=== PATIENT | male | born 1950 | race Caucasian/White ===

== ENCOUNTER 2020-09-12 08:21 | Outpatient (REF) | payer MEDICARE, SELFPAY ==
[2020-09-12 11:35] LABS: Alanine Aminotransferase 32 U/L (0-40); Albumin Level 4.7 g/dL (3.5-5.0); Alkaline Phosphatase 62 U/L (39-117); Anion Gap 14 (12-20); Aspartate Amino Transferase 20 U/L (5-37); Bilirubin Total 0.6 mg/dL (0.0-1.0); Blood Urea Nitrogen 17 mg/dL (9-16); Calcium 9.7 mg/dL (8.4-10.2); Carbon Dioxide 26 mmol/L (22-29); Chloride 103 mmol/L (96-108); Cholesterol 119 mg/dL; Estimated Glomerular Filt Rate > 60; Glucose Fasting 153 mg/dL (60-99); HDL Cholesterol 40 mg/dL; LDL Cholesterol Calculated 58 mg/dl; Potassium 4.8 mmol/L (3.3-5.1); Sodium 138 mmol/L (135-145); Total Protein 7.1 g/dL (6.5-8.0); Triglycerides 105 mg/dL
[2020-09-12 11:48] LABS: Creatinine Urine 116.07 mg/dL; Microalbum/Creatinine Ratio Ur 7.7 ug/mg cr
[2020-09-12 11:56] LABS: PSA,Total (Free>4and<10) 0.94 ng/mL (0.00-4.00); Vitamin D 25-OH Total 28.9 ng/mL (>30)
== END 2020-09-12 08:22 | disposition home or self-care (01) ==
LOC: HO.HMGCLDS 08:21
PROVIDERS: PCP Internal Medicine; Visit Provider Internal Medicine
DX: E11.65 Type 2 diabetes mellitus with hyperglycemia (principal); I10 Essential (primary) hypertension; E78.5 Hyperlipidemia, unspecified; Z12.5 Encounter for screening for malignant neoplasm of prostate
CPT/HCPCS: 36415; 80053; 80061; 82043; 82306; 84153

== ENCOUNTER 2021-01-25 07:51 | Outpatient (REF) | payer MEDICARE, SELFPAY ==
[2021-01-25 12:09] LABS: Alanine Aminotransferase 32 U/L (0-40); Anion Gap 13 (12-20); Aspartate Amino Transferase 24 U/L (5-37); Blood Urea Nitrogen 13 mg/dL (9-16); Calcium 9.5 mg/dL (8.4-10.2); Carbon Dioxide 24 mmol/L (22-29); Chloride 103 mmol/L (96-108); Cholesterol 107 mg/dL; Estimated Glomerular Filt Rate > 60; Glucose Fasting 101 mg/dL (60-99); HDL Cholesterol 41 mg/dL; LDL Cholesterol Calculated 49 mg/dl; Potassium 4.8 mmol/L (3.3-5.1); Sodium 135 mmol/L (135-145); Triglycerides 85 mg/dL
[2021-01-25 13:06] LABS: Estimated Average Glucose 134 mg/dL; Hemoglobin A1c % 6.3 %
== END 2021-01-25 07:52 | disposition home or self-care (01) ==
LOC: HO.HMGCLDS 07:51
PROVIDERS: PCP Internal Medicine; Visit Provider Internal Medicine
DX: E11.9 Type 2 diabetes mellitus without complications (principal); E78.5 Hyperlipidemia, unspecified; I10 Essential (primary) hypertension
CPT/HCPCS: 36415; 80048; 80061; 83036; 84450; 84460

== ENCOUNTER 2021-05-26 07:57 | Outpatient (REF) | payer MEDICARE, SELFPAY ==
[2021-05-26 11:46] LABS: Estimated Average Glucose 137 mg/dL; Hemoglobin A1c % 6.4 %
[2021-05-26 11:57] LABS: Alanine Aminotransferase 29 U/L (0-40); Anion Gap 14 (12-20); Aspartate Amino Transferase 22 U/L (5-37); Blood Urea Nitrogen 16 mg/dL (9-16); Calcium 9.6 mg/dL (8.4-10.2); Carbon Dioxide 25 mmol/L (22-29); Chloride 105 mmol/L (96-108); Cholesterol 114 mg/dL; Estimated Glomerular Filt Rate > 60; Glucose Fasting 156 mg/dL (60-99); HDL Cholesterol 40 mg/dL; LDL Cholesterol Calculated 59 mg/dl; Potassium 4.5 mmol/L (3.3-5.1); Sodium 139 mmol/L (135-145); Triglycerides 75 mg/dL
[2021-05-26 12:06] LABS: Vitamin D 25-OH Total 64.5 ng/mL (>30)
== END 2021-05-26 07:58 | disposition home or self-care (01) ==
LOC: HO.HMGCLDS 07:57
PROVIDERS: PCP Internal Medicine; Visit Provider Internal Medicine
DX: E11.9 Type 2 diabetes mellitus without complications (principal); E78.5 Hyperlipidemia, unspecified; I10 Essential (primary) hypertension
CPT/HCPCS: 36415; 80048; 80061; 82306; 83036; 84450; 84460

== ENCOUNTER 2021-12-01 08:01 | Outpatient (REF) | payer MEDICARE, SELFPAY ==
[2021-12-01 11:10] LABS: MANUAL DIFF FLAG NO
[2021-12-01 11:26] LABS: Basophils Absolute Auto 0.1 X10*3/uL (0.0-0.2); Basophils Percent Auto 1.4 % (0-2); Eosinophils Absolute Auto 0.1 X10*3/uL (0.0-0.4); Eosinophils Percent Auto 1.7 % (0-4); Hematocrit 41.3 % (42.0-52.0); Hemoglobin 13.7 g/dl (14.0-18.0); Imm Gran Abs Auto 0.03 X10*3/uL (0.00-0.03); Imm Gran Pct Auto 0.6 % (0.0-0.4); Lymphocytes Absolute Auto 0.8 X10*3/uL (1.2-4.9); Lymphocytes Percent Auto 16.1 % (20-40); Mean Corpuscular HGB Conc 33.2 g/dl (31.0-36.0); Mean Corpuscular Hemoglobin 31.1 pg (27.0-33.0); Mean Corpuscular Volume 93.9 fL (80.0-98.0); Monocytes Absolute Auto 0.5 X10*3/uL (0.1-1.2); Monocytes Percent Auto 8.7 % (2-11); Neutrophils Absolute Auto 3.7 x10*3/uL (2.0-8.3); Neutrophils Percent Auto 71.5 % (45-73); Platelet Count 238 X10*3/uL (160-400); Red Cell Distribution Width 13.5 % (11.0-16.0); White Blood Count 5.2 X10*3/uL (4.8-10.8)
[2021-12-01 11:33] LABS: Estimated Average Glucose 151 mg/dL; Hemoglobin A1c % 6.9 %
[2021-12-01 11:59] LABS: Creatinine Urine 142.83 mg/dL
[2021-12-01 12:00] LABS: PSA,Total (Free>4and<10) 1.04 ng/mL (0.00-4.00)
[2021-12-01 12:02] LABS: Alanine Aminotransferase 34 U/L (0-40); Anion Gap 13 (12-20); Aspartate Amino Transferase 25 U/L (5-37); Blood Urea Nitrogen 17 mg/dL (9-16); Calcium 9.8 mg/dL (8.4-10.2); Carbon Dioxide 25 mmol/L (22-29); Chloride 106 mmol/L (96-108); Cholesterol 115 mg/dL; Estimated Glomerular Filt Rate > 60; Glucose Fasting 150 mg/dL (60-99); HDL Cholesterol 36 mg/dL; LDL Cholesterol Calculated 58 mg/dl; Potassium 4.6 mmol/L (3.3-5.1); Sodium 139 mmol/L (135-145); Triglycerides 109 mg/dL
== END 2021-12-01 08:02 | disposition home or self-care (01) ==
LOC: HO.HMGCLDS 08:01
PROVIDERS: PCP Internal Medicine; Visit Provider Internal Medicine
DX: Z12.5 Encounter for screening for malignant neoplasm of prostate (principal); E78.5 Hyperlipidemia, unspecified; I10 Essential (primary) hypertension; E11.9 Type 2 diabetes mellitus without complications
CPT/HCPCS: 36415; 80048; 80061; 82043; 83036; 84153; 84450; 84460; 85025

== ENCOUNTER 2022-06-29 07:32 | Outpatient (REF) | payer MEDICARE, SELFPAY ==
[2022-06-29 11:39] LABS: MANUAL DIFF FLAG NO
[2022-06-29 11:48] LABS: Basophils Absolute Auto 0.1 X10*3/uL (0.0-0.2); Basophils Percent Auto 1.1 % (0-2); Eosinophils Absolute Auto 0.1 X10*3/uL (0.0-0.4); Eosinophils Percent Auto 1.8 % (0-4); Hematocrit 43.1 % (42.0-52.0); Imm Gran Abs Auto 0.06 X10*3/uL (0.00-0.03); Imm Gran Pct Auto 1.1 % (0.0-0.4); Lymphocytes Percent Auto 18.2 % (20-40); Mean Corpuscular HGB Conc 32.5 g/dl (31.0-36.0); Mean Corpuscular Hemoglobin 30.5 pg (27.0-33.0); Mean Corpuscular Volume 93.9 fL (80.0-98.0); Monocytes Absolute Auto 0.6 X10*3/uL (0.1-1.2); Monocytes Percent Auto 10.3 % (2-11); Neutrophils Absolute Auto 3.8 x10*3/uL (2.0-8.3); Neutrophils Percent Auto 67.5 % (45-73); Platelet Count 242 X10*3/uL (160-400); Red Blood Count 4.59 X10*6/uL (4.60-5.80); Red Cell Distribution Width 13.6 % (11.0-16.0); White Blood Count 5.6 X10*3/uL (4.8-10.8)
[2022-06-29 12:40] LABS: Alanine Aminotransferase 35 U/L (0-40); Aspartate Amino Transferase 23 U/L (5-37); Blood Urea Nitrogen 15 mg/dL (9-16); Calcium 9.8 mg/dL (8.4-10.2); Cholesterol 123 mg/dL; Estimated Glomerular Filt Rate > 60; Glucose Fasting 149 mg/dL (60-99); HDL Cholesterol 37 mg/dL; Iron 97 mcg/dL (45-160); LDL Cholesterol Calculated 62 mg/dl; Percent Iron Saturation 32 % (15-50); Total Iron Binding Capacity 306 mcg/dL (228-428); Triglycerides 123 mg/dL; Unsaturated Iron Binding 209 ug/dL; Vitamin D 25-OH Total 59.6 ng/mL (>30)
[2022-06-29 14:27] LABS: Anion Gap 12 (12-20); Carbon Dioxide 26 mmol/L (22-29); Chloride 104 mmol/L (96-108); Sodium 137 mmol/L (135-145)
== END 2022-06-29 07:33 | disposition home or self-care (01) ==
LOC: HO.HMGCLDS 07:32
PROVIDERS: PCP Internal Medicine; Visit Provider Internal Medicine
DX: E11.9 Type 2 diabetes mellitus without complications (principal); E78.5 Hyperlipidemia, unspecified; I10 Essential (primary) hypertension; D64.9 Anemia, unspecified
CPT/HCPCS: 36415; 80048; 80061; 82306; 83540; 84450; 84460; 85025

== ENCOUNTER 2022-10-25 07:42 | Outpatient (REF) | payer BC, SELFPAY ==
[2022-10-25 12:03] LABS: Creatinine Urine 166.54 mg/dL; Microalbum/Creatinine Ratio Ur 9.6 ug/mg cr
[2022-10-25 12:06] LABS: Alanine Aminotransferase 29 U/L (0-40); Anion Gap 13 (12-20); Aspartate Amino Transferase 23 U/L (5-37); Blood Urea Nitrogen 20 mg/dL (9-16); Calcium 9.7 mg/dL (8.4-10.2); Carbon Dioxide 24 mmol/L (22-29); Chloride 108 mmol/L (96-108); Cholesterol 106 mg/dL; Estimated Glomerular Filt Rate > 60; Glucose Fasting 131 mg/dL (60-99); HDL Cholesterol 37 mg/dL; LDL Cholesterol Calculated 55 mg/dl; Potassium 4.5 mmol/L (3.3-5.1); Sodium 140 mmol/L (135-145); Triglycerides 70 mg/dL
[2022-10-25 12:09] LABS: PSA,Total (Free>4and<10) 1.13 ng/mL (0.00-4.00); Vitamin D 25-OH Total 71.2 ng/mL (>30)
== END 2022-10-25 07:43 | disposition home or self-care (01) ==
LOC: HO.HMGCLDS 07:42
PROVIDERS: PCP Internal Medicine; Visit Provider Internal Medicine
DX: Z12.5 Encounter for screening for malignant neoplasm of prostate (principal); E78.5 Hyperlipidemia, unspecified; I10 Essential (primary) hypertension; E11.9 Type 2 diabetes mellitus without complications
CPT/HCPCS: 36415; 80048; 80061; 82043; 82306; 84153; 84450; 84460

== ENCOUNTER 2022-11-02 11:39 | Outpatient (AMB) | payer BC, SELFPAY ==
[2022-11-02 11:45] VITALS: BP 130/68; PULSE 87; O2SAT 99; BMI 29.8
--- NOTE | 2022-11-02 11:45 | MHC.PC.OV ---
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 Allergies No Known Allergies Allergy (Verified 04/29/23 13:21) Medication List - Last Reconciled 11/02/22 by Jesi Rao MD antiarthritic combination no.2 (glucosamine-chondroitin) mg PO atorvastatin 40 mg PO DAILY calcium carbonate-vitamin D3 600 mg-5 mcg (200 unit) (Calcium 600 + D(3)) caps PO cholecalciferol (vitamin D3) 125 mcg PO .every other day coenzyme [id number] 100-100 mg-unit caps PO flu vacc [id number](65yr up)-PF mL IM glimepiride (Amaryl) 4 mg PO QAM lancets (Acti-Simon Lancets) Check blood sugar once daily before meal lisinopril 10 mg PO DAILY metformin 1,000 mg PO BID multivitamin 1 tab PO DAILY omega-3 acid ethyl esters 1 cap PO DAILY OneTouch Ultra Test (blood sugar diagnostic) Test blood sugar once a day NS pioglitazone 30 mg PO DAILY varicella-zoster [id number] (PF) 50 mcg/0.5 mL IM Tobacco use date assessed: 11/02/22 Fall risk assessment: No Falls in past year Last assessed Fall Risk: 11/02/22 HPI 4 month ffup dm ,lipids, htn HPI Details 73-year-old male here today for his follow-up. He has diabetes mellitus, hyperlipidemia hypertension, compliant with taking his medications and diet, but admits to not getting much exercise lately. Recent fasting labs showed hemoglobin A1c higher than last check at 7.1%, and HDL cholesterol low but LDL cholesterol at goal. Blood pressure stable and controlled with present treatment. He sees Dr. Alcocer yearly for his diabetes retinopathy exam and gets yearly diabetes foot exam with Dr. Cast [facility] Medical History History of kidney stones Type 2 diabetes mellitus without complication, with no history of insulin use Essential hypertension Dyslipidemia Surgical History H/O colonoscopy Family History Father Aneurysm Mother No problems noted. Social History Housing: Condominium Alcohol intake: never Patient Tobacco Use Status: Never used Tobacco e-Cigarette/Vaping Use: Never Used Current occupational status: retired Cognitive needs: No Hearing needs: No Vision needs: Yes Questionnaire PHQ-9 Over the last 2 weeks, how often have you been bothered by any of the following problems? 1. Little interest or pleasure in doing things: not at all 2. Feeling down, depressed, or hopeless: not at all 3. Trouble falling or staying asleep, or sleeping too much: not at all 4. Feeling tired or having little energy: not at all 5. Poor appetite or overeating: not at all 6. Feeling bad about yourself - or that you are a failure or have let yourself or your family down: not at all 7. Trouble concentrating on things, such as reading the newspaper or watching television: not at all 8. Moving or speaking so slowly that other people could have noticed. Or the opposite - being so fidgety or restless that you have been moving around a lot more than usual: not at all 9. Thoughts that you would be better off or of hurting yourself in some way: not at all Total score: 0 Depression Screening Interpretation: Negative [id number] - PHQ-9 Billing: Yes Source: Developed by Drs. Bryan Vieyra, Sandra Joy, Jorge Llamas and colleagues, with an educational calin from [employer]. Thrive Questionnaire Date Thrive assessed: 07/04/22 AUDIT C Alcohol Use Questionnaire (AUDIT-C) 1. How often do you have a drink containing alcohol?: Never 2. How many drinks containing alcohol do you have on a typical day when you are drinking?: 1 or 2 3. How often do you have six or more drinks on one occasion?: Never Total Score: 0 SNEHA-7 AMB Questionnaire SNEHA-7 Date SNEHA - 7 assessed: 04/07/23 Feeling nervous, anxious, or on edge: 0 = Not at all Not being able to stop or control worryin = Not at all Worrying too much about different things: 0 = Not at all Trouble relaxin = Not at all Being so restless that it is hard to sit still: 0 = Not at all Becoming easily annoyed or irritable: 0 = Not at all Feeling afraid as if something awful might happen: 0 = Not at all Total SNEHA-7 score (0-4 normal; 5-9 mild; 10-14 moderate; 15-21 severe): 0 Source: Developed by Drs. Bryan Vieyra, Sandra Joy, Jorge Llamas and colleagues, with an educational calin from [employer]. SNEHA-7 Assessment Billing SNEHA-7 Assessment Tool: SNEHA-7 Assessment [id number] Review of Systems Const Denies body aches, Denies fatigue, Denies fever(s), Denies headache(s) and Denies weakness Eyes Details: Sees Dr. Alcocer ENT Reports Normal hearing present and Denies headache(s) Card Denies chest pain, Denies lightheadedness, Denies palpitations and Denies dyspnea Resp Denies chest congestion, Denies cough and Denies dyspnea GI Denies abdominal pain, Denies change in bowel habits and Denies heartburn Denies dysuria, Denies urinary frequency and Denies urinary urgency Musc Denies back pain, Denies myalgias, Denies arthralgias, Denies muscle weakness and Denies stiffness Skin/Breast Details: Currently gets diabetes foot exam with Dr. Cast Denies lesions and Denies rash Neuro Reports Normal hearing present, Denies headache(s), Denies Sensory deficit (Neuro) and Denies weakness Psych Reports no additional complaints Endo Denies fatigue, Denies polydipsia, Denies polyuria and Denies palpitations Johann/Lymph Reports no additional complaints Aller/Immun Reports no additional complaints Physical exam (Primary Care) Vital Signs: Last Vital Signs Pulse 87 11/02/22 11:45 BP 130/68 11/02/22 11:45 Pulse Ox 99 11/02/22 11:45 Oxygen Delivery Method Room Air 11/02/22 11:45 BMI result Body Mass Index 29.8 BMI Assessment/Plan discussion: High BMI High, discussed plan: lifestyle, weight reduction, dietary and physical activity Tobacco/Smoking Status: Tobacco use Status Tobacco use date assessed 11/02/22 11/02/22 11:46 Patient Tobacco Use Status Never used Tobacco 11/02/22 11:46 e-Cigarette/Vaping Use Never Used 11/02/22 11:46 PHQ-9: PHQ-9 Score PHQ-9: Total score 0 11/02/22 12:51 Depression Screening Interpretation: Negative Thrive Assessment: Date of Thrive Assessment Date Thrive assessed 07/04/22 11/02/22 11:46 Const General: healthy appearing, no acute distress and alert Orientation/consciousness: patient oriented x3 HENMT Head: Yes normocephalic Ears: hearing grossly normal bilaterally and external ears normal General nose exam: Normal external nose present and No nasal discharge present Face and sinus: Yes face symmetric Mouth: Normal oral and palatal mucosa present, oropharynx normal and moist mucous membranes Eyes General: appearance normal, both eyes and all related structures Neck Neck: Yes full ROM and Yes no lymphadenopathy Thyroid: Thyroid normal Resp Effort & Inspection: normal respiratory effort and able to speak in complete sentences Auscultation: clear to auscultation bilaterally Cardio Jugular venous distension: no JVD Rate: regular rate Rhythm: regular rhythm Heart sounds: S1 normal heart sound present and S2 normal heart sound present GI Inspection: Yes normal to inspection Palpation (GI): Soft to palpation Auscultation: normal bowel sounds Back/Spine/Pelvis Back: No back tenderness Skin Other: sees Dr Wells yearly General skin exam: no rashes or lesions noted Neuro General: patient oriented x3, gait normal, moves all extremities, no focal motor deficits, CN's II-XI intact bilaterally and normal sensation to monofilament Cranial nerves: Yes Normal hearing present Cognition (Neuro): normal cognition Gait exam (Neuro): Normal gait present Motor exam (neuro): 5/5 motor strength present throughout Sensory Exam: No Sensory deficit (Neuro) Extrem General: Yes normal to inspection, Yes full ROM, Yes no pedal edema and Yes normal gait Psych Appearance: grossly normal and well kempt Mental Status: mental status grossly normal Speech and movement: Normal speech and movement present Thought process: Normal thought process present Thought content: Normal thought content present Results Reviewed Results Reviewed: ENTERED: 10/25/22 OTHR GARCIA: ORDERED: Met Prof Fast, AST, ALT, Lipid Panel, PSA W/ REFLEX, Vitamin D 25-OH Test Result Flag Reference Site Sodium 140 135-145 mmol/L Potassium 4.5 3.3-5.1 mmol/L CL 108 96-108 mmol/L CO2 24 22-29 mmol/L Gap 13 12-20 BUN 20 H 9-16 mg/dL Creat 0.83 0.5-1.4 mg/dL EGFR > 60 NOTE: For -Citizen Of [place] individuals, multiply the result by 1.210. Chronic Kidney Disease: Estimated GFR < 60 mL/min/1.73m2 Severe Kidney Disease: Estimated GFR < 15 mL/min/1.73m2 FBS 131 H 60-99 mg/dL A fasting glucose of 126 mg/dl or greater on more than one occasion is considered diagnostic of diabetes. CA 9.7 8.4-10.2 mg/dL AST (GOT) 23 5-37 U/L ALT (GPT) 29 0-40 U/L Triglyceride 70 mg/dL Desirable Triglyceride: less than 150 mg/dL Borderline High Triglyceride 150-199 mg/dL High Triglyceride: 200-499 mg/dL Very High Triglyceride: greater than or equal to 5OO mg/dL Chol 106 mg/dL Desirable Cholesterol: less than 200 mg/dL Borderline High Cholesterol: 200-239 mg/dL High Cholesterol: greater than 239 mg/dL LDL Calculated 55 mg/dl Desirable LDL: less than 100 mg/dL Near Optimal/Above Optimal LDL: 110-129 mg/dL Borderline High LDL: 130-159 mg/dL High LDL: 160-189 mg/dL Very High LDL: greater than or equal to 190 mg/dL HDL 37 mg/dL Desirable HDL: greater than 40 mg/dL Note: This HDL assay may give artificially low results in patients with liver disease. PSA W/ REFLEX 1.13 0.00-4.00 ng/mL A Free PSA was not performed: The percentage of Free PSA can be used to enhance the differentiation of prostate cancer from benign prostatic disease in subjects whose PSA levels are between 4.0 and 10.0 ng/mL. For subjects whose PSA levels are below 4.0 or above 10.0 ng/mL, the risk of prostate cancer is determined on the basis of the PSA alone. Therefore the % Free PSA is recommended only for those subjects whose PSA levels are between 4.0 and 10.0 ng/mL. PSA methodology: [employer] i Chemiluminescent Microparticle Immunoassay (CMIA) Vit D 25-OH Tot 71.2 >30 ng/mL Health Based Reference Values* < 20 ng/mL Deficient 20-30 ng/mL Insufficient > 30 ng/mL Sufficient Assessment and Plan Assessment & Plan (1) Type 2 diabetes mellitus without complication, with no history of insulin use: Code(s): E11.9 - Type 2 diabetes mellitus without complications Plan: Recent lab results reviewed with patient, with higher hemoglobin A1c at 7.1% compared to last visit at 6.9%. Will continue on current medication, and reinforced diabetic diet and regular exercise with patient. Counseled regarding importance of yearly diabetes retinopathy screening. Patient advised to inspect feet daily, for any signs of injury, callus or infection. Compliance with diet and regular exercise again stressed. Blood pressure goal is less than 130/80, goal LDL is less than 100 and goal hemoglobin A1c is less than 7% follow-up appointment made in-6--months, after fasting labs done. (2) Essential hypertension: Code(s): I10 - Essential (primary) hypertension Plan: Blood pressure at goal of less than 130/80. Continue with current medication. Reinforced importance of following a low sodium diet, getting regular exercise, and lowering stress levels. (3) Dyslipidemia: Code(s): E78.5 - Hyperlipidemia, unspecified Plan: Reviewed recent fasting lipid profile with patient with levels at goal . Continue with atorvastatin 40 mg daily , in addition to adherence to low-cholesterol diet and regular exercise, at least 30 minutes 3 to 4 times a week. Advised patient to make healthy food choices, eat more fruits, vegetables, whole grains, wild caught fish and low-fat dairy. Limit amount of meat and fried or fatty food products, as well as processed foods and fast foods. Follow-up scheduled with repeat fasting lipid panel in 6 months. Orders: Orders Hemoglobin A1c 6 Months E11.9 - Type 2 diabetes mellitus without complications, I10 - Essential (primary) hypertension, E78.5 - Hyperlipidemia, unspecified Alanine Aminotransferase 6 Months E11.9 - Type 2 diabetes mellitus without complications, I10 - Essential (primary) hypertension, E78.5 - Hyperlipidemia, unspecified Basic Metabolic Panel Fasting 6 Months E11.9 - Type 2 diabetes mellitus without complications, I10 - Essential (primary) hypertension, E78.5 - Hyperlipidemia, unspecified Hemoglobin A1c 11/02/22 E11.9 - Type 2 diabetes mellitus without complications Lipid Panel 6 Months E11.9 - Type 2 diabetes mellitus without complications, I10 - Essential (primary) hypertension, E78.5 - Hyperlipidemia, unspecified Aspartate Amino Transferase 6 Months E11.9 - Type 2 diabetes mellitus without complications, I10 - Essential (primary) hypertension, E78.5 - Hyperlipidemia, unspecified Coding Level of Care Code Est Pt Level 4 (02127) Diagnoses Type 2 diabetes mellitus without complication, with no history of insulin use E11.9 Essential hypertension I10 Dyslipidemia E78.5 Additional Codes SNEHA-7 Assessment Billing - SNEHA-7 Assessment Tool: SNEHA-7 Assessment 08612 ([id number])
== END 2022-11-02 12:53 | disposition home or self-care (01) ==
LOC: HO.HMGC 11:39
PROVIDERS: PCP Internal Medicine; Visit Provider Internal Medicine
DX: E11.9 Type 2 diabetes mellitus without complications (principal); I10 Essential (primary) hypertension; E78.5 Hyperlipidemia, unspecified
CPT/HCPCS: 99499

== ENCOUNTER 2022-11-02 12:55 | Outpatient (REF) | payer BC, SELFPAY ==
[2022-11-02 14:22] LABS: Estimated Average Glucose 157 mg/dL; Hemoglobin A1c % 7.1 %
== END 2022-11-02 12:56 | disposition home or self-care (01) ==
LOC: HO.HMGCLDS 12:55
PROVIDERS: PCP Internal Medicine; Visit Provider Internal Medicine
DX: E11.9 Type 2 diabetes mellitus without complications (principal)
CPT/HCPCS: 36415; 83036

== ENCOUNTER 2023-04-24 08:10 | Outpatient (REF) | payer BC, SELFPAY ==
[2023-04-24 11:47] LABS: Alanine Aminotransferase 26 U/L (0-40); Anion Gap 10 (12-20); Aspartate Amino Transferase 23 U/L (5-37); Blood Urea Nitrogen 19 mg/dL (9-16); Carbon Dioxide 26 mmol/L (22-29); Chloride 106 mmol/L (96-108); Cholesterol 115 mg/dL (<200); Estimated Glomerular Filt Rate > 60; Glucose Fasting 150 mg/dL (60-99); HDL Cholesterol 41 mg/dL (>40); LDL Cholesterol Calculated 57 mg/dL (<100); Potassium 4.8 mmol/L (3.3-5.1); Sodium 137 mmol/L (135-145); Triglycerides 85 mg/dL (<150)
[2023-04-24 12:27] LABS: Estimated Average Glucose 160 mg/dL; Hemoglobin A1c % 7.2 % (<6.0)
== END 2023-04-24 08:11 | disposition home or self-care (01) ==
LOC: HO.HMGCLDS 08:10
PROVIDERS: PCP Internal Medicine; Visit Provider Internal Medicine
DX: E11.9 Type 2 diabetes mellitus without complications (principal); E78.5 Hyperlipidemia, unspecified; I10 Essential (primary) hypertension
CPT/HCPCS: 36415; 80048; 80061; 83036; 84450; 84460

== ENCOUNTER 2023-04-29 12:42 | Outpatient (AMB) | payer BC, SELFPAY ==
--- NOTE | 2023-04-29 12:45 | MHC.PC.OV ---
Vital Signs 04/29/23 12:54 Height 6 ft Weight 222 lb BMI 30.1 BP 110/60 Blood Pressure Location Rt brachial Position Sitting Pulse 84 Pulse Source Pulse Oximeter Pulse Oximetry (%) 97 Oxygen Delivery Method Room Air Intake Visit Reasons: 6 month ffup dm ,lipids, htn Intake Note: Pt is here today for his 6mo. f/u DM, lipids and HTN Allergies No Known Allergies Allergy (Verified 04/29/23 13:21) Medication List - Last Reconciled 04/29/23 by Jesi Rao MD antiarthritic combination no.2 (glucosamine-chondroitin) mg PO atorvastatin 40 mg PO DAILY calcium carbonate-vitamin D3 600 mg-5 mcg (200 unit) (Calcium 600 + D(3)) caps PO cholecalciferol (vitamin D3) 125 mcg PO .every other day coenzyme [id number] 100-100 mg-unit caps PO glimepiride (Amaryl) 4 mg PO QAM lancets (Acti-Simon Lancets) Check blood sugar once daily before meal lisinopril 10 mg PO DAILY metformin 1,000 mg PO BID multivitamin 1 tab PO DAILY omega-3 acid ethyl esters 1 cap PO DAILY OneTouch Ultra Test (blood sugar diagnostic) Test blood sugar once a day NS pioglitazone 30 mg PO DAILY varicella-zoster [id number] (PF) 50 mcg/0.5 mL IM Tobacco use date assessed: 04/29/23 Fall risk assessment: No Falls in past year Last assessed Fall Risk: 04/29/23 Dental Screening Dental Screen Date: 04/29/23 Did you have a dental visit in the last 12 months?: Yes Did you have a dental problem in the last 6 months where you did not have access to dental care?: No Was dental information given to patient?: Patient has dentist HPI 6 month ffup dm ,lipids, htn HPI Details 2-year-old male with hypertension, diabetes mellitus and anemia, here today for a follow-up. He has been taking his medications as directed, has been trying to follow recommended diet, and stays active. Has been feeling well, with no complaints at present time. [facility] Medical History History of kidney stones Type 2 diabetes mellitus without complication, with no history of insulin use Essential hypertension Dyslipidemia Surgical History H/O colonoscopy Family History Father Aneurysm Mother No problems noted. Social History Housing: Condominium Alcohol intake: never Patient Tobacco Use Status: Never used Tobacco e-Cigarette/Vaping Use: Never Used Current occupational status: retired Cognitive needs: No Hearing needs: No Vision needs: Yes Questionnaire PHQ-9 Over the last 2 weeks, how often have you been bothered by any of the following problems? 1. Little interest or pleasure in doing things: not at all 2. Feeling down, depressed, or hopeless: not at all 3. Trouble falling or staying asleep, or sleeping too much: not at all 4. Feeling tired or having little energy: not at all 5. Poor appetite or overeating: not at all 6. Feeling bad about yourself - or that you are a failure or have let yourself or your family down: not at all 7. Trouble concentrating on things, such as reading the newspaper or watching television: not at all 8. Moving or speaking so slowly that other people could have noticed. Or the opposite - being so fidgety or restless that you have been moving around a lot more than usual: not at all 9. Thoughts that you would be better off or of hurting yourself in some way: not at all Total score: 0 [id number] - PHQ-9 Billing: Yes Source: Developed by Drs. Bryan Vieyra, Sandra Joy, Jorge Llamas and colleagues, with an educational calin from [employer]. Thrive Questionnaire Date Thrive assessed: 04/29/23 I am a: Patient What is your living situation today?: I have a steady place to live Within the past 12 months, did the food you bought not last and you didn't have the money to get more?: Never true Within the past 12 months, did you worry whether your food would run out before you got money to buy more?: Never true Do you have trouble paying for medicines?: No Do you have trouble getting transportation to medical appointments?: No Do you have trouble paying your heating and electricity bill?: No Do you have trouble taking care of your child, family member or friend?: No Do you have trouble with day-to-day activities such as bathing, preparing meals, shopping, managing finances, etc.?: No Are you currently unemployed and looking for a job?: No Are you interested in more education?: No AUDIT C Alcohol Use Questionnaire (AUDIT-C) 1. How often do you have a drink containing alcohol?: Never Total Score: 0 SNEHA-7 AMB Questionnaire SNEHA-7 Date SNEHA - 7 assessed: 04/29/23 Feeling nervous, anxious, or on edge: 0 = Not at all Not being able to stop or control worryin = Not at all Worrying too much about different things: 0 = Not at all Trouble relaxin = Not at all Being so restless that it is hard to sit still: 0 = Not at all Becoming easily annoyed or irritable: 0 = Not at all Feeling afraid as if something awful might happen: 0 = Not at all Total SNEHA-7 score (0-4 normal; 5-9 mild; 10-14 moderate; 15-21 severe): 0 Source: Developed by Drs. Bryan Vieyra, Sandra Joy, Jorge Llamas and colleagues, with an educational calin from [employer]. SNEHA-7 Assessment Billing SNEHA-7 Assessment Tool: SNEHA-7 Assessment 00320 Review of Systems Const Denies body aches, Denies fatigue, Denies fever(s), Denies headache(s) and Denies weakness Eyes Details: Sees Dr. Alcocer ENT Reports Normal hearing present and Denies headache(s) Card Denies chest pain, Denies lightheadedness, Denies palpitations and Denies dyspnea Resp Denies chest congestion, Denies cough and Denies dyspnea GI Denies abdominal pain, Denies change in bowel habits and Denies heartburn Denies dysuria, Denies urinary frequency and Denies urinary urgency Musc Denies back pain, Denies myalgias, Denies arthralgias, Denies muscle weakness and Denies stiffness Skin/Breast Details: Currently gets diabetes foot exam with Dr. Cast Denies lesions and Denies rash Neuro Reports Normal hearing present, Denies headache(s), Denies Sensory deficit (Neuro) and Denies weakness Psych Reports no additional complaints Endo Denies fatigue, Denies polydipsia, Denies polyuria and Denies palpitations Johann/Lymph Reports no additional complaints Aller/Immun Reports no additional complaints Physical exam (Primary Care) Vital Signs: Last Vital Signs Pulse 84 04/29/23 12:54 BP 110/60 04/29/23 12:54 Pulse Ox 97 04/29/23 12:54 Oxygen Delivery Method Room Air 04/29/23 12:54 BMI result Body Mass Index 30.1 BMI Assessment/Plan discussion: High BMI High, discussed plan: lifestyle, weight reduction, dietary and physical activity Tobacco/Smoking Status: Tobacco use Status Tobacco use date assessed 04/29/23 04/29/23 12:56 Patient Tobacco Use Status Never used Tobacco 04/29/23 12:45 e-Cigarette/Vaping Use Never Used 04/29/23 12:45 PHQ-9: PHQ-9 Score PHQ-9: Total score 0 04/29/23 13:20 Thrive Assessment: Date of Thrive Assessment Date Thrive assessed 04/29/23 04/29/23 13:11 Const General: healthy appearing, no acute distress and alert Orientation/consciousness: patient oriented x3 HENMT Head: Yes normocephalic Ears: hearing grossly normal bilaterally and external ears normal General nose exam: Normal external nose present and No nasal discharge present Face and sinus: Yes face symmetric Mouth: Normal oral and palatal mucosa present, oropharynx normal and moist mucous membranes Eyes General: appearance normal, both eyes and all related structures Neck Neck: Yes full ROM and Yes no lymphadenopathy Thyroid: Thyroid normal Carotids: normal carotid upstroke Resp Effort & Inspection: normal respiratory effort and able to speak in complete sentences Auscultation: clear to auscultation bilaterally Cardio Jugular venous distension: no JVD Rate: regular rate Rhythm: regular rhythm Heart sounds: S1 normal heart sound present and S2 normal heart sound present GI Inspection: Yes normal to inspection Palpation (GI): Soft to palpation Auscultation: normal bowel sounds Back/Spine/Pelvis Back: No back tenderness Skin Other: sees Dr Wells yearly General skin exam: no rashes or lesions noted Neuro General: patient oriented x3, gait normal, moves all extremities, no focal motor deficits, CN's II-XI intact bilaterally and normal sensation to monofilament Cranial nerves: Yes Normal hearing present Cognition (Neuro): normal cognition Gait exam (Neuro): Normal gait present Motor exam (neuro): 5/5 motor strength present throughout Sensory Exam: No Sensory deficit (Neuro) Extrem General: Yes normal to inspection, Yes full ROM, Yes no pedal edema and Yes normal gait Psych Appearance: grossly normal and well kempt Mental Status: mental status grossly normal Speech and movement: Normal speech and movement present Thought process: Normal thought process present Thought content: Normal thought content present Results Reviewed Results Reviewed: ENTERED: 04/24/[address]: ORDERED: Met Prof Fast, AST, ALT, Lipid Panel Test Result Flag Reference Site Sodium 137 135-145 mmol/L Potassium 4.8 3.3-5.1 mmol/L CL 106 96-108 mmol/L CO2 26 22-29 mmol/L Gap 10 L 12-20 BUN 19 H 9-16 mg/dL Creat 0.80 0.5-1.4 mg/dL EGFR > 60 NOTE: For -Bulgar[place] individuals, multiply the result by 1.210. Chronic Kidney Disease: Estimated GFR < 60 mL/min/1.73m2 Severe Kidney Disease: Estimated GFR < 15 mL/min/1.73m2 FBS 150 H 60-99 mg/dL A fasting glucose of 126 mg/dl or greater on more than one occasion is considered diagnostic of diabetes. CA 10.0 8.4-10.2 mg/dL AST (GOT) 23 5-37 U/L ALT (GPT) 26 0-40 U/L Triglyceride 85 <150 mg/dL Desirable Triglyceride: less than 150 mg/dL Borderline High Triglyceride 150-199 mg/dL High Triglyceride: 200-499 mg/dL Very High Triglyceride: greater than or equal to 5OO mg/dL Cholesterol 115 <200 mg/dL Desirable Cholesterol: less than 200 mg/dL Borderline High Cholesterol: 200-239 mg/dL High Cholesterol: greater than 239 mg/dL LDL Calculated 57 <100 mg/dL Desirable LDL: less than 100 mg/dL Near Optimal/Above Optimal LDL: 110-129 mg/dL Borderline High LDL: 130-159 mg/dL High LDL: 160-189 mg/dL Very High LDL: greater than or equal to 190 mg/dL HDL 41 >40 mg/dL Desirable HDL: greater than 40 mg/dL Note: This HDL assay may give artificially low results in patients with liver disease. Laboratory Tests 12/01/21 11/02/22 04/24/23 08:09 13:03 08:16 Estimat Average Glucose 160 Hemoglobin A1c % 7.1 7.2 H Urine Creatinine 142.83 Urine Microalbumin 10.0 Microalb/Creat Ratio 7.0 Assessment and Plan Assessment & Plan (1) Type 2 diabetes mellitus without complication, with no history of insulin use: Code(s): E11.9 - Type 2 diabetes mellitus without complications Plan: Hemoglobin A1c today is at 7.2%. Stressed importance of following low carb diet and getting regular exercise. Will continue on metformin 1000 mg 1 tablet twice a day, hydrocortisone 30 mg daily and glimepiride 4 mg daily in a.m. with breakfast. Reminded to get his diabetes eye exam yearly to check for retinopathy and see his foot doctor on a regular basis every year. He was also advised to get his yearly flu shot and COVID vaccine booster (2) Essential hypertension: Code(s): I10 - Essential (primary) hypertension Plan: Blood pressure at goal of less than 130/80. Continue with current medication. Reinforced importance of following a low sodium diet, getting regular exercise, and lowering stress levels. (3) Dyslipidemia: Code(s): E78.5 - Hyperlipidemia, unspecified Plan: Reviewed recent fasting lipid profile with patient with levels within normal limits . Continue with atorvastatin 40 mg daily , in addition to adherence to low-cholesterol diet and regular exercise, at least 30 minutes 3 to 4 times a week. Advised patient to make healthy food choices, eat more fruits, vegetables, whole grains, wild caught fish and low-fat dairy. Limit amount of meat and fried or fatty food products, as well as processed foods and fast foods. Follow-up scheduled with repeat fasting lipid panel in 6 months. Orders: Orders Hemoglobin A1c 10/21/23 E11.9 - Type 2 diabetes mellitus without complications, E78.5 - Hyperlipidemia, unspecified, I10 - Essential (primary) hypertension Basic Metabolic Panel Fasting 10/21/23 E11.9 - Type 2 diabetes mellitus without complications, E78.5 - Hyperlipidemia, unspecified, I10 - Essential (primary) hypertension Microalbumin, Random (w Creat) 10/21/23 E11.9 - Type 2 diabetes mellitus without complications, E78.5 - Hyperlipidemia, unspecified, I10 - Essential (primary) hypertension Alanine Aminotransferase 10/21/23 E11.9 - Type 2 diabetes mellitus without complications, E78.5 - Hyperlipidemia, unspecified, I10 - Essential (primary) hypertension Aspartate Amino Transferase 10/21/23 E11.9 - Type 2 diabetes mellitus without complications, E78.5 - Hyperlipidemia, unspecified, I10 - Essential (primary) hypertension Lipid Panel 10/21/23 E11.9 - Type 2 diabetes mellitus without complications, E78.5 - Hyperlipidemia, unspecified, I10 - Essential (primary) hypertension Vitamin D 25-OH Total 10/21/23 E11.9 - Type 2 diabetes mellitus without complications, E78.5 - Hyperlipidemia, unspecified, I10 - Essential (primary) hypertension Coding Level of Care Code Est Pt Level 4 (30667) Diagnoses Type 2 diabetes mellitus without complication, with no history of insulin use E11.9 Essential hypertension I10 Dyslipidemia E78.5 Additional Codes SNEHA-7 Assessment Billing - SNEHA-7 Assessment Tool: SNEHA-7 Assessment 08246 ([id number])
[2023-04-29 12:54] VITALS: BP 110/60; PULSE 84; O2SAT 97; BMI 30.1
== END 2023-04-29 13:30 | disposition home or self-care (01) ==
PROVIDERS: Visit Provider Internal Medicine
DX: E11.9 Type 2 diabetes mellitus without complications (principal); I10 Essential (primary) hypertension; E78.5 Hyperlipidemia, unspecified
CPT/HCPCS: 99214

== ENCOUNTER 2023-12-09 07:35 | Outpatient (REF) | payer BC, SELFPAY ==
[2023-12-09 10:40] LABS: Estimated Average Glucose 171 mg/dL; Hemoglobin A1c % 7.6 % (<6.0)
[2023-12-09 11:00] LABS: Alanine Aminotransferase 30 U/L (0-40); Anion Gap 18 (12-20); Aspartate Amino Transferase 25 U/L (5-37); Blood Urea Nitrogen 18 mg/dL (9-16); Carbon Dioxide 22 mmol/L (22-29); Chloride 104 mmol/L (96-108); Cholesterol 121 mg/dL (<200); Estimated Glomerular Filt Rate > 60; Glucose Fasting 188 mg/dL (60-99); HDL Cholesterol 37 mg/dL (>40); LDL Cholesterol Calculated 52 mg/dL (<100); Potassium 4.9 mmol/L (3.3-5.1); Sodium 139 mmol/L (135-145); Triglycerides 161 mg/dL (<150)
[2023-12-09 11:08] LABS: Creatinine Urine 76.65 mg/dL; Microalbum/Creatinine Ratio Ur 7.8 ug/mg cr (<30)
[2023-12-09 11:18] LABS: Vitamin D 25-OH Total 67.2 ng/mL (>30)
== END 2023-12-09 07:36 | disposition home or self-care (01) ==
LOC: HO.HMGCLDS 07:35
PROVIDERS: PCP Internal Medicine; Visit Provider Internal Medicine
DX: E11.9 Type 2 diabetes mellitus without complications (principal); I10 Essential (primary) hypertension; E78.5 Hyperlipidemia, unspecified
CPT/HCPCS: 36415; 80048; 80061; 82043; 82306; 82570; 83036; 84450; 84460

== ENCOUNTER 2023-12-13 08:13 | Outpatient (AMB) | payer BC, SELFPAY ==
--- NOTE | 2023-12-13 08:09 | MHC.PC.OV ---
Intake Visit Reasons: f/u labs Intake Note: Pt is here is having a TH visit to f/u labs Allergies No Known Allergies Allergy (Verified 12/13/23 08:18) Medication List - Last Reconciled 12/13/23 by Jesi Rao MD antiarthritic combination no.2 (glucosamine-chondroitin) mg PO atorvastatin 40 mg PO DAILY calcium carbonate-vitamin D3 600 mg-5 mcg (200 unit) (Calcium 600 + D(3)) caps PO cholecalciferol (vitamin D3) 125 mcg PO .every other day coenzyme [id number] E 100-100 mg-unit caps PO glimepiride 4 mg PO QAM lancets (Acti-Simon Lancets) Check blood sugar once daily before meal lisinopril 10 mg PO DAILY metformin 1,000 mg PO BID multivitamin 1 tab PO DAILY omega-3 acid ethyl esters 1 cap PO DAILY OneTouch Ultra Test (blood sugar diagnostic) Test blood sugar once a day NS pioglitazone 30 mg PO DAILY Tobacco use date assessed: 12/13/23 Fall risk assessment: No Falls in past year Last assessed Fall Risk: 12/13/23 Dental Screening Dental Screen Date: 12/13/23 Did you have a dental visit in the last 12 months?: Yes Did you have a dental problem in the last 6 months where you did not have access to dental care?: No Was dental information given to patient?: Patient has dentist HPI f/u labs HPI Details Here today for follow-up on his diabetes mellitus, and hyperlipidemia. Currently taking pioglitazone 30 mg daily, metformin a 1000 mg twice a day and glimepiride 4 mg in the morning. He has been compliant with taking his medications but admits to not being fully compliant with diet and has not been getting much exercise over the last 3 months. His recent fasting labs showed a hemoglobin A1c at 7.6% but lipids are within normal limits. [facility] Medical History History of kidney stones Type 2 diabetes mellitus without complication, with no history of insulin use Essential hypertension Dyslipidemia Surgical History H/O colonoscopy Family History Father Aneurysm Mother No problems noted. Social History Housing: Condominium Alcohol intake: never Patient Tobacco Use Status: Never used Tobacco e-Cigarette/Vaping Use: Never Used Current occupational status: retired Cognitive needs: No Hearing needs: No Vision needs: Yes Questionnaire PHQ-9 Over the last 2 weeks, how often have you been bothered by any of the following problems? 1. Little interest or pleasure in doing things: not at all 2. Feeling down, depressed, or hopeless: not at all 3. Trouble falling or staying asleep, or sleeping too much: not at all 4. Feeling tired or having little energy: not at all 5. Poor appetite or overeating: not at all 6. Feeling bad about yourself - or that you are a failure or have let yourself or your family down: not at all 7. Trouble concentrating on things, such as reading the newspaper or watching television: not at all 8. Moving or speaking so slowly that other people could have noticed. Or the opposite - being so fidgety or restless that you have been moving around a lot more than usual: not at all 9. Thoughts that you would be better off or of hurting yourself in some way: not at all Total score: 0 Depression Screening Interpretation: Negative Depression Screening Done: Yes 49766 - PHQ-9 Billing: Yes Source: Developed by Drs. Bryan Vieyra, Sandra Joy, Jorge Llamas and colleagues, with an educational calin from [employer]. Thrive Questionnaire Date Thrive assessed: 12/13/23 I am a: Patient What is your living situation today?: I have a steady place to live Within the past 12 months, did the food you bought not last and you didn't have the money to get more?: Never true Within the past 12 months, did you worry whether your food would run out before you got money to buy more?: Never true Do you have trouble paying for medicines?: No Do you have trouble getting transportation to medical appointments?: No Do you have trouble paying your heating and electricity bill?: No Do you have trouble taking care of your child, family member or friend?: No Do you have trouble with day-to-day activities such as bathing, preparing meals, shopping, managing finances, etc.?: No Are you currently unemployed and looking for a job?: No Are you interested in more education?: No THRIVE Score: 0 AUDIT C Alcohol Use Questionnaire (AUDIT-C) 1. How often do you have a drink containing alcohol?: Never Total Score: 0 SNEHA-7 AMB Questionnaire SNEHA-7 Date SNEHA - 7 assessed: 12/13/23 Feeling nervous, anxious, or on edge: 0 = Not at all Not being able to stop or control worryin = Not at all Worrying too much about different things: 0 = Not at all Trouble relaxin = Not at all Being so restless that it is hard to sit still: 0 = Not at all Becoming easily annoyed or irritable: 0 = Not at all Feeling afraid as if something awful might happen: 0 = Not at all Total SNEHA-7 score (0-4 normal; 5-9 mild; 10-14 moderate; 15-21 severe): 0 Source: Developed by Drs. Bryan Vieyra, Sandra Joy, Jorge Llamas and colleagues, with an educational calin from [employer]. SNEHA-7 Assessment Billing SNEHA-7 Assessment Tool: SNEHA-7 Assessment 92049 Review of Systems Const Denies body aches, Denies fatigue, Denies fever(s), Denies headache(s) and Denies weakness Eyes Details: Sees Dr. Alcocer ENT Reports Normal hearing present and Denies headache(s) Card Denies chest pain, Denies lightheadedness, Denies palpitations and Denies dyspnea Resp Denies chest congestion, Denies cough and Denies dyspnea GI Denies abdominal pain, Denies change in bowel habits and Denies heartburn Denies dysuria, Denies urinary frequency and Denies urinary urgency Musc Denies back pain, Denies myalgias, Denies arthralgias, Denies muscle weakness and Denies stiffness Skin/Breast Details: Currently gets diabetes foot exam with Dr. Cast Denies lesions and Denies rash Neuro Reports Normal hearing present, Denies headache(s), Denies Sensory deficit (Neuro) and Denies weakness Psych Reports no additional complaints Endo Denies fatigue, Denies polydipsia, Denies polyuria and Denies palpitations Johann/Lymph Reports no additional complaints Aller/Immun Reports no additional complaints Physical exam (Primary Care) Tobacco/Smoking Status: Tobacco use Status Tobacco use date assessed 12/13/23 12/13/23 08:12 Patient Tobacco Use Status Never used Tobacco 12/13/23 08:12 e-Cigarette/Vaping Use Never Used 12/13/23 08:12 PHQ-9: PHQ-9 Score PHQ-9: Total score 0 12/13/23 08:50 Depression Screening Interpretation: Negative Thrive Assessment: Date of Thrive Assessment Date Thrive assessed 12/13/23 12/13/23 08:12 Neuro Cranial nerves: Yes Normal hearing present Sensory Exam: No Sensory deficit (Neuro) Telehealth Telehealth Telehealth Platform: [employer] Location of provider rendering services: practice address Location of patient: address on file Patient Identification confirmed using: Name, : Yes Telehealth method: video Patient verbally consented to treatment: Yes Patient verbally consented to billing insurance company: Yes Patient informed of any privacy concerns related to visit: Yes Minutes spent on Phone/Video with Pt.: 15 Results Reviewed Results Reviewed: Name: Ken Justice Age/Sex: 73/M : 1950 Unit#: [id number] Attend Dr: Jesi Rao MD Re12/09/23 Status: DEP REF Location: [facility] Disch: SPEC : [id number] DANNY: 12/09/23 STATUS: COMP REQ : [id number] RECD: 12/09/23-[address]: Jesi Rao MD COMP: 12/09/23-8 ENTERED: 12/09/23-[address]: ORDERED: Met Prof Fast, AST, ALT, Lipid Panel, Vitamin D 25-OH Test Result Flag Reference Sodium 139 135-145 mmol/L Potassium 4.9 3.3-5.1 mmol/L CL 104 96-108 mmol/L CO2 22 22-29 mmol/L Gap 18 12-20 BUN 18 H 9-16 mg/dL Creat 0.82 0.5-1.4 mg/dL EGFR > 60 NOTE: For -Swiss individuals, multiply the result by 1.210. Chronic Kidney Disease: Estimated GFR < 60 mL/min/1.73m2 Severe Kidney Disease: Estimated GFR < 15 mL/min/1.73m2 FBS 188 H 60-99 mg/dL A fasting glucose of 126 mg/dl or greater on more than one occasion is considered diagnostic of diabetes. CA 10.0 8.4-10.2 mg/dL AST (GOT) 25 5-37 U/L ALT (GPT) 30 0-40 U/L Triglyceride 161 H <150 mg/dL Desirable Triglyceride: less than 150 mg/dL Borderline High Triglyceride 150-199 mg/dL High Triglyceride: 200-499 mg/dL Very High Triglyceride: greater than or equal to 5OO mg/dL Cholesterol 121 <200 mg/dL Desirable Cholesterol: less than 200 mg/dL Borderline High Cholesterol: 200-239 mg/dL High Cholesterol: greater than 239 mg/dL LDL Calculated 52 <100 mg/dL Desirable LDL: less than 100 mg/dL Near Optimal/Above Optimal LDL: 110-129 mg/dL Borderline High LDL: 130-159 mg/dL High LDL: 160-189 mg/dL Very High LDL: greater than or equal to 190 mg/dL HDL 37 L >40 mg/dL Desirable HDL: greater than 40 mg/dL Note: This HDL assay may give artificially low results in patients with liver disease. Vit D 25-OH Tot 67.2 >30 ng/mL Health Based Reference Values* < 20 ng/mL Deficient 20-30 ng/mL Insufficient > 30 ng/mL Sufficient Laboratory Tests 11/02/22 12/09/23 12/09/23 13:03 07:41 07:45 Estimat Average Glucose 157 171 Hemoglobin A1c % 7.1 7.6 H Urine Creatinine 76.65 Urine Microalbumin 6.0 Microalb/Creat Ratio 7.8 Assessment and Plan Assessment & Plan (1) Dyslipidemia: Code(s): E78.5 - Hyperlipidemia, unspecified Plan: Will continue on current dose of atorvastatin 40 mg daily repeat fasting labs again in 3 months (2) Type 2 diabetes mellitus without complication, with no history of insulin use: Code(s): E11.9 - Type 2 diabetes mellitus without complications Plan: Reinforced importance of following recommended diet and getting regular exercise, will continue on current treatment for diabetes mellitus, up-to-date with his diabetes retinopathy exam and sees Dr. Adams for his yearly diabetes foot check. Repeat hemoglobin A1c in 3 months Orders: Orders Alanine Aminotransferase 03/29/24 E11.9 - Type 2 diabetes mellitus without complications, E78.5 - Hyperlipidemia, unspecified, I10 - Essential (primary) hypertension Basic Metabolic Panel Fasting 03/29/24 E11.9 - Type 2 diabetes mellitus without complications, E78.5 - Hyperlipidemia, unspecified, I10 - Essential (primary) hypertension Lipid Panel 03/29/24 E11.9 - Type 2 diabetes mellitus without complications, E78.5 - Hyperlipidemia, unspecified, I10 - Essential (primary) hypertension Hemoglobin A1c 03/29/24 E11.9 - Type 2 diabetes mellitus without complications, E78.5 - Hyperlipidemia, unspecified, I10 - Essential (primary) hypertension Aspartate Amino Transferase 03/29/24 E11.9 - Type 2 diabetes mellitus without complications, E78.5 - Hyperlipidemia, unspecified, I10 - Essential (primary) hypertension Coding Level of Care Code Tele Est Pt Level 4 (71812) Diagnoses Dyslipidemia E78.5 Type 2 diabetes mellitus without complication, with no history of insulin use E11.9 Additional Codes SNEHA-7 Assessment Billing - SNEHA-7 Assessment Tool: SNEHA-7 Assessment [id number] ([id number])
== END 2023-12-13 10:44 | disposition home or self-care (01) ==
LOC: HO.HMGC 08:13
PROVIDERS: PCP Internal Medicine; Visit Provider Internal Medicine
DX: E78.5 Hyperlipidemia, unspecified (principal); E11.9 Type 2 diabetes mellitus without complications
CPT/HCPCS: 99214

== ENCOUNTER 2024-04-11 07:50 | Outpatient (REF) | payer BC, SELFPAY ==
[2024-04-11 11:22] LABS: Estimated Average Glucose 186 mg/dL; Hemoglobin A1c % 8.1 % (<6.0)
[2024-04-11 11:27] LABS: Alanine Aminotransferase 33 U/L (0-40); Anion Gap 13 (12-20); Aspartate Amino Transferase 25 U/L (5-37); Blood Urea Nitrogen 18 mg/dL (9-16); Calcium 10.1 mg/dL (8.4-10.2); Carbon Dioxide 25 mmol/L (22-29); Chloride 104 mmol/L (96-108); Cholesterol 124 mg/dL (<200); Estimated Glomerular Filt Rate > 60; Glucose Fasting 162 mg/dL (60-99); HDL Cholesterol 39 mg/dL (>40); LDL Cholesterol Calculated 62 mg/dL (<100); Potassium 4.5 mmol/L (3.3-5.1); Sodium 137 mmol/L (135-145); Triglycerides 116 mg/dL (<150)
== END 2024-04-11 07:51 | disposition home or self-care (01) ==
LOC: HO.HMGCLDS 07:50
PROVIDERS: PCP Internal Medicine; Visit Provider Internal Medicine
DX: E11.9 Type 2 diabetes mellitus without complications (principal); I10 Essential (primary) hypertension; E78.5 Hyperlipidemia, unspecified
CPT/HCPCS: 36415; 80048; 80061; 83036; 84450; 84460

== ENCOUNTER 2024-04-14 11:45 | Outpatient (AMB) | payer BC, SELFPAY ==
--- NOTE | 2024-04-14 12:23 | MHC.PC.OV ---
Vital Signs 04/14/24 12:25 Height 6 ft Weight 222 lb 2 oz BMI 30.1 BP 148/62 H Blood Pressure Location Lt brachial Position Sitting Pulse 100 Pulse Source Pulse Oximeter Pulse Oximetry (%) 96 Oxygen Delivery Method Room Air Intake Visit Reasons: Follow up DM Intake Note: Pt is here today for follow up on DM Allergies No Known Allergies Allergy (Verified 04/14/24 12:35) Medication List - Last Reconciled 04/14/24 by Jesi Rao MD antiarthritic combination no.2 (glucosamine-chondroitin) mg PO atorvastatin 40 mg PO DAILY calcium carbonate-vitamin D3 600 mg-5 mcg (200 unit) (Calcium 600 + D(3)) caps PO cholecalciferol (vitamin D3) 125 mcg PO .every other day coenzyme [id number] E 100-100 mg-unit caps PO glimepiride 4 mg PO QAM lancets (Acti-Simon Lancets) Check blood sugar once daily before meal lisinopril 10 mg PO DAILY metformin 1,000 mg PO BID multivitamin 1 tab PO DAILY omega-3 acid ethyl esters 1 cap PO DAILY OneTouch Ultra Test (blood sugar diagnostic) Test blood sugar once a day NS pioglitazone 30 mg PO DAILY Tobacco use date assessed: 04/14/24 Fall risk assessment: No Falls in past year Last assessed Fall Risk: 04/14/24 Dental Screening Dental Screen Date: 04/14/24 HPI Follow up DM HPI Details 73-year-old male here today for follow-up on his diabetes mellitus, hypertension and hyperlipidemia. Has been compliant with taking his medications but admits to not really compliant with diet and no regular exercise this past few months. Systolic Blood pressure elevated on this visit, recent fasting labs showed lipid profile within normal limits, but hemoglobin A1c elevated at 8.1%. [facility] Medical History (Updated 04/14/24 @ 12:40 by Jesi Rao MD) Diabetes mellitus with hyperglycemia, without long-term current use of insulin History of kidney stones Type 2 diabetes mellitus without complication, with no history of insulin use Essential hypertension Dyslipidemia Surgical History H/O colonoscopy Family History Father Aneurysm Mother No problems noted. Social History Housing: Condominium Alcohol intake: never Patient Tobacco Use Status: Never used Tobacco e-Cigarette/Vaping Use: Never Used service: No Current occupational status: retired Cognitive needs: No Hearing needs: No Vision needs: Yes Questionnaire PHQ-9 Over the last 2 weeks, how often have you been bothered by any of the following problems? 1. Little interest or pleasure in doing things: not at all 2. Feeling down, depressed, or hopeless: not at all 3. Trouble falling or staying asleep, or sleeping too much: not at all 4. Feeling tired or having little energy: not at all 5. Poor appetite or overeating: not at all 6. Feeling bad about yourself - or that you are a failure or have let yourself or your family down: not at all 7. Trouble concentrating on things, such as reading the newspaper or watching television: not at all 8. Moving or speaking so slowly that other people could have noticed. Or the opposite - being so fidgety or restless that you have been moving around a lot more than usual: not at all 9. Thoughts that you would be better off or of hurting yourself in some way: not at all Total score: 0 Depression Screening Interpretation: Negative Depression Screening Done: Yes 50017 - PHQ-9 Billing: Yes Source: Developed by Drs. Bryan Vieyra, Sandra Joy, Jorge Llamas and colleagues, with an educational calin from [employer]. Thrive Questionnaire Date Thrive assessed: 04/14/24 I am a: Patient What is your living situation today?: I have a steady place to live Within the past 12 months, did the food you bought not last and you didn't have the money to get more?: Never true Within the past 12 months, did you worry whether your food would run out before you got money to buy more?: Never true Do you have trouble paying for medicines?: No Do you have trouble getting transportation to medical appointments?: No Do you have trouble paying your heating and electricity bill?: No Do you have trouble taking care of your child, family member or friend?: No Do you have trouble with day-to-day activities such as bathing, preparing meals, shopping, managing finances, etc.?: No Are you interested in more education?: No Please select the resources that you would like help with: None Currently or been in a relationship where the following occur: No concerns reported THRIVE Score: 0 AUDIT C Alcohol Use Questionnaire (AUDIT-C) 1. How often do you have a drink containing alcohol?: Never 3. How often do you have six or more drinks on one occasion?: Never Total Score: 0 Score Reviewed/Action Taken: Yes SNEHA-7 AMB Questionnaire SNEHA-7 Date SNEHA - 7 assessed: 04/14/24 Feeling nervous, anxious, or on edge: 0 = Not at all Not being able to stop or control worryin = Not at all Worrying too much about different things: 0 = Not at all Trouble relaxin = Not at all Being so restless that it is hard to sit still: 0 = Not at all Becoming easily annoyed or irritable: 0 = Not at all Feeling afraid as if something awful might happen: 0 = Not at all Total SNEHA-7 score (0-4 normal; 5-9 mild; 10-14 moderate; 15-21 severe): 0 Source: Developed by Drs. Bryan Vieyra, Sandra Joy, Jorge Llamas and colleagues, with an educational calin from [employer]. SNEHA-7 Assessment Billing SNEHA-7 Assessment Tool: SNEHA-7 Assessment 83772 Review of Systems Const Denies body aches, Denies fatigue, Denies fever(s), Denies headache(s) and Denies weakness Eyes Details: Sees Dr. Alcocer ENT Reports Normal hearing present and Denies headache(s) Card Denies chest pain, Denies lightheadedness, Denies palpitations and Denies dyspnea Resp Denies chest congestion, Denies cough and Denies dyspnea GI Denies abdominal pain, Denies change in bowel habits and Denies heartburn Denies dysuria, Denies urinary frequency and Denies urinary urgency Musc Denies back pain, Denies myalgias, Denies arthralgias, Denies muscle weakness and Denies stiffness Skin/Breast Details: Currently gets diabetes foot exam with Dr. Cast Denies lesions and Denies rash Neuro Reports Normal hearing present, Denies headache(s), Denies Sensory deficit (Neuro) and Denies weakness Psych Reports no additional complaints Endo Denies fatigue, Denies polydipsia, Denies polyuria and Denies palpitations Johann/Lymph Reports no additional complaints Aller/Immun Reports no additional complaints Physical exam (Primary Care) Vital Signs: Last Vital Signs Pulse 100 04/14/24 12:25 BP 148/62 H 04/14/24 12:25 Pulse Ox 96 04/14/24 12:25 Oxygen Delivery Method Room Air 04/14/24 12:25 BMI result Body Mass Index 30.1 BMI Assessment/Plan discussion: High BMI High, discussed plan: lifestyle, weight reduction, dietary and physical activity Tobacco/Smoking Status: Tobacco use Status Tobacco use date assessed 04/14/24 04/14/24 12:27 Patient Tobacco Use Status Never used Tobacco 04/14/24 12:27 e-Cigarette/Vaping Use Never Used 04/14/24 12:27 PHQ-9: PHQ-9 Score PHQ-9: Total score 0 04/14/24 12:34 Depression Screening Interpretation: Negative Thrive Assessment: Date of Thrive Assessment Date Thrive assessed 04/14/24 04/14/24 12:27 Currently or been in a relationship where the following occur: No concerns reported Const General: healthy appearing, no acute distress and alert Orientation/consciousness: patient oriented x3 HENMT Head: Yes normocephalic Ears: hearing grossly normal bilaterally and external ears normal General nose exam: Normal external nose present and No nasal discharge present Face and sinus: Yes face symmetric Mouth: Normal oral and palatal mucosa present, oropharynx normal and moist mucous membranes Eyes General: appearance normal, both eyes and all related structures Neck Neck: Yes full ROM and Yes no lymphadenopathy Thyroid: Thyroid normal Resp Effort & Inspection: normal respiratory effort and able to speak in complete sentences Auscultation: clear to auscultation bilaterally Cardio Jugular venous distension: no JVD Rate: regular rate Rhythm: regular rhythm Heart sounds: S1 normal heart sound present and S2 normal heart sound present GI Inspection: Yes normal to inspection Palpation (GI): Soft to palpation Auscultation: normal bowel sounds Back/Spine/Pelvis Back: No back tenderness Skin Other: sees Dr Wells yearly General skin exam: no rashes or lesions noted Neuro General: patient oriented x3, gait normal, moves all extremities, no focal motor deficits, CN's II-XI intact bilaterally and normal sensation to monofilament Cranial nerves: Yes Normal hearing present Cognition (Neuro): normal cognition Gait exam (Neuro): Normal gait present Motor exam (neuro): 5/5 motor strength present throughout Sensory Exam: No Sensory deficit (Neuro) Extrem General: Yes normal to inspection, Yes full ROM, Yes no pedal edema and Yes normal gait Psych Appearance: grossly normal and well kempt Mental Status: mental status grossly normal Speech and movement: Normal speech and movement present Thought process: Normal thought process present Thought content: Normal thought content present Results Reviewed Results Reviewed: Laboratory Tests 04/11/24 08:05 Estimat Average Glucose 186 Hemoglobin A1c % 8.1 H Name: Ken Justice Age/Sex: 73/M : 1950 Unit#: [id number] Attend Dr: Jesi Rao MD Re04/11/24 Status: DEP REF Location: [facility] Disch: SPEC : [id number] DANNY: 04/11/24 STATUS: COMP REQ : [id number] RECD: 04/11/[address]: Jesi Rao MD COMP: 04/11/24 ENTERED: 04/11/[address]: ORDERED: Met Prof Fast, AST, ALT, Lipid Panel Test Result Flag Reference Sodium 137 135-145 mmol/L Potassium 4.5 3.3-5.1 mmol/L CL 104 96-108 mmol/L CO2 25 22-29 mmol/L Gap 13 12-20 BUN 18 H 9-16 mg/dL Creat 0.84 0.5-1.4 mg/dL EGFR > 60 NOTE: For -[place] individuals, multiply the result by 1.210. Chronic Kidney Disease: Estimated GFR < 60 mL/min/1.73m2 Severe Kidney Disease: Estimated GFR < 15 mL/min/1.73m2 FBS 162 H 60-99 mg/dL A fasting glucose of 126 mg/dl or greater on more than one occasion is considered diagnostic of diabetes. CA 10.1 8.4-10.2 mg/dL AST (GOT) 25 5-37 U/L ALT (GPT) 33 0-40 U/L Triglyceride 116 <150 mg/dL Desirable Triglyceride: less than 150 mg/dL Borderline High Triglyceride 150-199 mg/dL High Triglyceride: 200-499 mg/dL Very High Triglyceride: greater than or equal to 5OO mg/dL Cholesterol 124 <200 mg/dL Desirable Cholesterol: less than 200 mg/dL Borderline High Cholesterol: 200-239 mg/dL High Cholesterol: greater than 239 mg/dL LDL Calculated 62 <100 mg/dL Desirable LDL: less than 100 mg/dL Near Optimal/Above Optimal LDL: 110-129 mg/dL Borderline High LDL: 130-159 mg/dL High LDL: 160-189 mg/dL Very High LDL: greater than or equal to 190 mg/dL HDL 39 L >40 mg/dL Desirable HDL: greater than 40 mg/dL Note: This HDL assay may give artificially low results in patients with liver disease. Assessment and Plan Assessment & Plan (1) Diabetes mellitus with hyperglycemia, without long-term current use of insulin: Code(s): E11.65 - Type 2 diabetes mellitus with hyperglycemia Plan: Diabetes not well controlled, will stop glimepiride, add Jardiance 10 mg 1 tablet in the morning an hour before breakfast and continued on pioglitazone 30 mg daily and metformin a 1000 mg 1 tablet twice a day. Reinforced importance of following recommended diet and getting regular exercise. (2) Dyslipidemia: Code(s): E78.5 - Hyperlipidemia, unspecified Plan: Reviewed recent fasting lipid profile with patient with levels within normal limit . Continue atorvastatin 40 mg daily and [place] 3 fatty acid supplement , in addition to adherence to low-cholesterol diet and regular exercise, at least 30 minutes 3 to 4 times a week. Advised patient to make healthy food choices, eat more fruits, vegetables, whole grains, wild caught fish and low-fat dairy. Limit amount of meat and fried or fatty food products, as well as processed foods and fast foods. Follow-up scheduled with repeat fasting lipid panel in 3 months. (3) Essential hypertension: Code(s): I10 - Essential (primary) hypertension Plan: Continue lisinopril 10 mg daily, and hopefully Jardiance added will help lower blood pressure. Reinforced importance following a low-salt diet and getting regular exercise. Orders: Orders Aspartate Amino Transferase 06/28/24 E11.65 - Type 2 diabetes mellitus with hyperglycemia, E78.5 - Hyperlipidemia, unspecified, I10 - Essential (primary) hypertension Basic Metabolic Panel Fasting 06/28/24 E11.65 - Type 2 diabetes mellitus with hyperglycemia, E78.5 - Hyperlipidemia, unspecified, I10 - Essential (primary) hypertension Hemoglobin A1c 06/28/24 E11.65 - Type 2 diabetes mellitus with hyperglycemia, E78.5 - Hyperlipidemia, unspecified, I10 - Essential (primary) hypertension Alanine Aminotransferase 06/28/24 E11.65 - Type 2 diabetes mellitus with hyperglycemia, E78.5 - Hyperlipidemia, unspecified, I10 - Essential (primary) hypertension Lipid Panel 06/28/24 E11.65 - Type 2 diabetes mellitus with hyperglycemia, E78.5 - Hyperlipidemia, unspecified, I10 - Essential (primary) hypertension Medications: New Jardiance (empagliflozin) 10 mg PO QAM 30 tabs 5RF NS .65 - Type 2 diabetes mellitus with hyperglycemia Discontinued glimepiride administer with breakfast Discontinued Reason: Doctor's Order 4 mg PO QAM 90 tabs 1RF Coding Level of Care Code Est Pt Level 4 (86685) Complex EM visit Add On G2211 Diagnoses Diabetes mellitus with hyperglycemia, without long-term current use of insulin Dyslipidemia E78.5 Essential hypertension I10 Additional Codes SNEHA-7 Assessment Billing - SNEHA-7 Assessment Tool: SNEHA-7 Assessment 67375 ([id number])
[2024-04-14 12:25] VITALS: BP 148/62; PULSE 100; O2SAT 96; BMI 30.1
== END 2024-04-14 12:52 | disposition home or self-care (01) ==
PROVIDERS: PCP Internal Medicine; Visit Provider Internal Medicine
DX: E11.65 Type 2 diabetes mellitus with hyperglycemia (principal); E78.5 Hyperlipidemia, unspecified; I10 Essential (primary) hypertension

== ENCOUNTER → 2024-04-14 11:45 | Outpatient (BNVA) | payer BC, SELFPAY | PROVIDERS: PCP Internal Medicine; Visit Provider Internal Medicine | DX: E11.65 Type 2 diabetes mellitus with hyperglycemia (principal); E78.5 Hyperlipidemia, unspecified; I10 Essential (primary) hypertension; Z79.899 Other long term (current) drug therapy | CPT/HCPCS: 96127 ==

== ENCOUNTER → 2024-04-30 10:25 | Outpatient (BNVA) | payer BC, SELFPAY | PROVIDERS: PCP Internal Medicine ==

== ENCOUNTER 2024-07-13 07:08 | Outpatient (REF) | payer BC, SELFPAY ==
--- OUTSIDE RECORDS SUMMARY | 2024-07-13 07:10 | XMS_ITS ---
[facility] Organization [facility] Address [address] [facility] [place] [address] Care Team Providers Care Pattern Setter Name Role Phone Jalen MCGUIRE, Jesi Klein Primary Care Provider Un available Phyllis Cast Unavailable [phone] Allergies No Known Allergies REASON FOR VISIT At Risk Footcare, Painful Nail(s) aggrevated by shoes and causing difficulty standing/walking., Skin problem(s) Medications Medication SIG (Take, Route, Frequency, Duration) Notes Start Date End Date Status metFORMIN HCl 1000 MG 1 tablet with a me al Orally Once a day for 30 day(s) Active Pioglitazone HCl 30 MG 1 tablet Orally O nce a day for 30 day(s) Active glyBURIDE 5 MG 1 tablet with breakf ast or the first main meal of the day Orally Once a day for 30 day(s) Active Lisinopril 10 MG 1 tablet Orally Once a day for 30 day(s) Active Atorvastatin Calcium 40 MG 1 tablet Oral ly Once a day for 30 day(s) Active Ammonium Lactate 12 % 1 application to a ffected area Externally to feet Twice a day for 30 days Active Vitamin D3 Active Glucosamine Chondroitin Adv Active Calcium Carbonate-Vitamin D3 Unknown Ciclopirox Olamine 0.77 % 1 application to affected area Externally Twice a day to effected areas on feet for 30 days 08/30/2023 Active EmI36-Bvudtuk E Acti ve Multivitamin - as directed Orally Active [place] 3-6-9 Fatty Acids - as directed Orally Active Social History Tobacco Use: Social History Observation Description Date Details (start date - stop date) Never Smoker NA - NA Tobacco Use/Smoking Question Answer Notes Are you a: nonsmoker Alcohol Screen Question Answer Notes Did you have a drink containing alcohol in the p ast year? No Points 0 Interpretation Negative Tobacco use other than smoking: Question Answer Notes Are you an other tobacco user? No Vital Signs Height 6ft in 08/30/2023 Weight 222 lbs 08/30/2023 BMI 30.11 kg/m2 08/30/2023 Encounters Encounter Location Date Provider Diagnosis [facility] [place] [address] [place] [address] 08/30/2023 Phyllis Cast Type 2 diabetes mellitus without complication, without long-term current use of insulin E11.9 and Tinea pedis of both feet B35.3 Assessments Encounter Date Diagnosis (ICD Code) Assessment Notes Treatment Notes Treatment Clinical Notes Section Notes 08/30/2023 Type 2 diabetes mellitus without complication, without long-term current use of insulin (ICD-10 - E11.9) 08/30/2023 Tinea pedis of both feet (ICD-10 - B35.3) Plan Of Treatment Medication Medication Name Sig Start Date Stop Date Notes Ciclopirox Olamine 0.77 % 1 application to affected area Externally Twice a day to effected areas on feet for 30 days 08/30/2023 Next Appt Details Follow Up: 1 Year, Reason: Provider Name:Phyllis bhakta, 09/01/2024 09:00:00 AM, [address] [place] [address], [phone], Progress Notes * Skyler JUSTICEcheyenne GDOB:[birth year] (73 yo M)Acc No.[id number]:08/30/2023 Progress Note Patient:?Ken Justice Provider:?Phyllis Cast DPM :1950???Age:73 Y???Sex:Male Kenn e:08/30/2023 Address:[address] [place], [place] [id number] Pcp:Lonnie Lamas Subjective: * Chief Complaints: * ???At Risk FootcarePainful N ail(s) aggrevated by shoes and causing difficulty standing/walking.Skin problem(s) * HPI: ???At Risk footcare:?Pt States Last PCP Visit:?Date?06/18/2023 ???Skin problems:?Nature:?dryness scaling redness.?Location:?B/L .?Course:?worse.?Treatments:?medication ( AM Lactin ).? * ROS:?General/Constitutional:?Nausea?denies, denies.?Vomiting?denies, denies.?Hunger Thirst?denies, denies.?Loss appetite?denies, denies.?Chills?denies, denies.?Fatigue?denies, denies.?Fever?denies, denies.?Night Sweats denies, denies.?Unexplained weight loss?denies, denies.?Unexplained weight gain?denies, denies.?HEENTM:?Dentures?admits, admits.?Dizziness?denies, denies.?Glasses/contacts?admits, admits.?Retinopathy?denies, denies.?Blurred/double vision?denies, denies.?TMJ?denies, denies.?Discharge/drainage?denies, denies.?Implants?denies, denies.?Sore throat?denies, denies.?Dental implants?denies, denies.?Hard of hearing ?denies, denies.?Difficulty chewing/swallowing/speaking?denies, denies.?Nose bleeds?denies, denies.?Sore mouth?denies, denies.?Respiratory:?On Oxygen?denies, denies.?Pneumonia/pleurisy?denies, denies.?Bronchitis?denies, denies.?Emphysema?denies, denies.?Coughing?denies, denies.?Cough blood?denies, denies.?Shortness of breath?denies, denies.?Wheezing?denies, denies.?Cardiovascular:?Pacemaker?denies, denies.?MVP?denies, denies.?WPW?denies, denies.?CHF?denies, denies.?Heart attack?denies, denies.?Septal defect?denies, denies.?Rapid beat?denies, denies.?Chest pain ?denies, denies.?Atrial Fib.?denies, denies.?Murmur/Palpitations?denies, denies.?Gastrointestinal:?Hemorrhoids?denies, denies.?Stomach/Abdominal pain?denies, denies.?Dark blood stool?denies, denies.?Irritable bowel ?denies, denies.?Constipation?denies, denies.?Diarrhea?denies, denies.?Hematology:?Swelling?denies, denies.?Clots?denies, denies.?Varicose Veins?admits, admits.?Bruising?denies, denies.?Bleeding problem?denies, denies.?Genitourinary:?Blood urine?denies, denies.?Frequent/Painfu/urination/bladder control?denies, denies.?Kidney stones?admits, admits.?Infection (UTI)?denies, denies.?Nephropathy?denies, denies.?sex trans dis (STD)?denies, denies.?Prostate?denies, denies.?Musculoskeletal:?Hammertoes?denies, denies.?Bunions?admits, admits.?Back Pain?denies, denies.?Muscle Cramps/ Resting?denies, denies.?Muscle cramps / walking?denies, denies.?Generalized aches and pains?denies, denies.?Weakness?denies, denies.?Integ.:?Hardy?denies, denies.?Scars?denies, denies.?Corns/calluses?denies, denies.?Ingrown nails?denies, denies.?Painful nails?denies, denies.?Open Sores?denies, denies.?Rashes?denies, denies.?Neurologic:?Difficulty sleeping?denies, denies.?Brain disorder?denies, denies.?Numbness?denies, denies.?Balance trouble?denies, denies.?Confusion?denies, denies.?Fainting/blackouts?denies, denies.?Tingling?denies, denies.?Tremors?denies, denies.? * Medical History:? * Surgical History:?Denies Pas t Surgical History * Hospitalization/Major Diagno stic Procedure:?Denies Past Hospitalization * Family History:?Mother: dece ased, heart attack, poor circulation, diagnosed with Diabetic - NIDDM, Unspecified heart disease, Other specified conditions influencing health status.?Father: , aneurysm.? * Social History:?Tobacco Use:?Tobacco Use/Smoking?Are you a:?nonsmoker ?Tobacco use other than smoking?Are you an other tobacco user??No ???Drugs/Alcohol:?Drugs?Have you used drugs other than those for medical reasons in the past 12 months??No ?Alcohol Screen?Did you have a drink containing alcohol in the past year??No ?Points?0 ?Interpretation?Negative ???Miscellaneous:?Caffeine: yes, frequency:4 cups per day. ?Exercise: yes, walking,weights,stretching. ?Marital status: . ?Occupation: retired. * Medications:?TakingGlucosami ne Chondroitin Adv Vitamin D3 Pioglitazone HCl 30 MG Tablet 1 tablet Orally Once a daymetFORMIN HCl 1000 MG Tablet 1 tablet with a meal Orally Once a dayLisinopril 10 MG Tablet 1 tablet Orally Once a dayglyBURIDE 5 MG Tablet 1 tablet with breakfast or the first main meal of the day Orally Once a dayAtorvastatin Calcium 40 MG Tablet 1 tablet Orally Once a dayOmega 3-6-9 Fatty Acids - Capsule as directed Orally Multivitamin - Liquid as directed Orally UfE14-Aelrgvi E Ammonium Lactate 12 % Cream 1 application to affected area Externally to feet Twice a dayTaking Glucosamine Chondroitin Adv Taking Vitamin D3 Taking Pioglitazone HCl 30 MG Tablet 1 tablet Orally Once a dayTaking metFORMIN HCl 1000 MG Tablet 1 tablet with a meal Orally Once a dayTaking Lisinopril 10 MG Tablet 1 tablet Orally Once a dayTaking glyBURIDE 5 MG Tablet 1 tablet with breakfast or the first main meal of the day Orally Once a dayTaking Atorvastatin Calcium 40 MG Tablet 1 tablet Orally Once a dayTaking [place]fax 3-6-9 Fatty Acids - Capsule as directed Orally Taking Multivitamin - Liquid as directed Orally Taking TwS89-Loxlgwu E Taking Ammonium Lactate 12 % Cream 1 application to affected area Externally to feet Twice a dayUnknownCalcium Carbonate-Vitamin D3 Medication List reviewed and reconciled with the patientUnknown Calcium Carbonate-Vitamin D3 Medication List reviewed and reconciled with the patient * Allergies:?N.K.D.A.yes[Aller gies Verified] Objective: * Vitals:?Ht: 6ft, Wt:222, BMI :30.11, Shoe size: 11.5, BS: not taken, Ht-cm: 182.88 cm, Wt-k.7 kg. * ???Past Orders: ???Lab:HEMOGLOBIN A1C (GLYCO HEMOGLOBIN) (Order Date - 05/29/2023) (Collection Date - 05/29/2023) ? Value Reference Range ?HEMOGLOBIN A1C (HH) 7.2 * Examination: ???Ophthalmology Referral: ?DIABETES EYE EXAM?Nails: ?NAILS are:?Elongated, overgrown, dystrophic, lytic, greater than 3mm thick, discolored and friable with crumbly malodorous subungual debris, with pain on palpation 1-5 B/L.?Dermatologic: ?SKIN FINDINGS:?Skin shows sign(s) of, erythema, scaling, in a moccasin fashion, no fissure(s) present, B/L interdigital maceration 4th bilateral.?Orthopedic: ?MUSCLE STRENGTH:?5/5 all groups in a symmetrical fashion , B/L.?DIGITAL DEFORMITIES:?Digital contracture, PIPJ, 2-5 B/L, incompl-reducable to push-up test, no over, nor underlapping, Reveals swelling/redness/enlargement of PIPJs, with evidence of shoe producing skin irritation.?General Examination: ?GENERAL APPEARANCE:?Reveals a pleasant, alert, well nourished, well developed, well hydrated individual, who demonstrates proper attention to hygene/body habitus, and is in no acute distress.?ORIENTED:?person, place, and time.?FOOT EXAM:?Footwear Evaluation?Neurological: ?SENSORY:?Neurological exam reveals intact sensorium, pain sensation normal, vibration sensation intact, pinprick sensation is normal in the lower extremities, 5.07 monofilament test performed at plantar aspects of 5 varied sites per foot shows sensation, normal, B/L, Pt denies, anesthesia, burning, paresthesia, tingling, B/L.?Vascular: ?DP PULSES:?3/4, B/L.?PT PULSES:?3/4, B/L.?CAPILLARY FILL TIME:?immediate, all digits, B/L.?SKIN TEMPERTURE GRADIENT OF THE LOWER EXTERMITIES:?normal, warm to cool, proximal to distal, B/L, B/L.?HAIR GROWTH/TEXTURE/ELASTICITY/TURGOR:?normal, B/L.?PIGMENTATION:?normal, B/L.?EDEMA:?absent, B/L.? Assessment: * Assessment: 1.?Type 2 diabetes mellitus without complication, without long-term current use of insulin - E11.9 (Primary)?2.?Tinea pedis of both feet - B35.3, Acute problem, Uncomplicated (3)? Plan: * Treatment: * Procedure Codes:? * Preventive Medicine:? ??Counseling:?Discussion:?-13: Office or other outpatient visit for the evaluation and management of an established patient, which required a medically appropriate history and/or examination and LOW level of DECISION MAKING for: 1 STABLE ACUTE UNCOMPLICATED PROBLEM, 2 OR MORE MINOR PROBLEMS, OR 1 STABLE CHRONIC PROBLEM, THAT POSE(S) A LOW RISK FOR MORBIDITY/MORTALITY. The visit on the day of the encounter encompassed interpreting the data and educating the patient as to the nature of their condition, treatment options available according to their individual PMH, meds, allergies, and overall health/living conditions, as well as any potential risks or complications that may occur from a failure to adhere to, and participate in, the recommended course of therapy. The discussion included a complete verbal, and/or written explanation of the examination results, any x-rays taken, the proposed diagnosis, and outline of the treatment plan. A schedule for future care needs was also explained. The patient verbalized an understanding of the instructions at this time and agreed to be an active participant in their treatment. If the patient should think of any questions or concerns after the visit, I have encouraged the patient to call the office.?Diabetic Footcare:?The Pt. was counseled in great detail on their muscoloskeletal foot and toe deformities which coincide with the dermatological presentations visualized on exam. We discussed how their deformities put the integrity of their feet at risk for potential pedal complications which is what makes accomidative the diabetic shoes and cutomizable inserts medically necessary. We discussed the different shoe and insert treatment types and options, as well as the important advantages for adhering to regularly wearing these accomidative devices daily. The patient was made aware of the fact that a failure in accepting these recommedations may be deleterious, unable to prevent, and disadvantagely result in, many pedal complications such as skin irritation, skin ulceration, infection, and even loss of toe/foot/leg/or even their life. Time was also spent with the patient dispensing and discussing proper diabetic footcare techniques including daily skin moisturization, daily foot inspection for any interruption in skin integrity, open lesions, or sign of infection such as redness/malodor/drainage/swelling as well as daily shoe inspection for the presence of internal foreign bodies and shoe as well as insert wear. Patient questions re: shoes, inserts, and self foot inspections were answered to their satisfaction as the patient verbally confirmed a full understanding of the above information.?Tinea Pedis:?The patient was counseled on the diagnosis, potential etiologies, and treatment options for their skin condition. We discussed the risks and benefits of each option from performing no treatment, to utilizing OTC topical skin creams, prescription topical creams, customized compounded topical medications, and, if necessary, to utilize oral antifungal therapy. We discussed the advantages and disadvantages of each possible treatment and importance for adherence to all the recommended therapies for optimum success and avoid potential complications such as open sore/infection/possible hospitalization. We discussed the potential effectiveness of each topical preparation as well as each ones possible side effects and/or patient medication interactions if oral therapy is selected. Patient questions re: the advantages and disadvantages of each treatment choice, medication use/dosage, successful outcomes, and application consistency were reviewed and the patient verbalized that all answers were clearly understood. The patient was told they can help alleviate symptoms by utilizing moisture absorbant innersoles with activated charcoal and baking soda, applying antifungal sprays daily, aerating toe web spaces at night by putting cotton or lambs wool between the toes, alternating shoe gear daily if possible so they can dry out, changing socks at least once during the day, wearing well-ventilated shoes or sandals. The patient has decided to apply antifungal skin creams to their feet as directed. Rx was sent to their pharmacy at the time of visit.? * Follow Up:?1 Year * Images: * Sign off status: Completed true * Provider:?Phyllis Cast DPM Date:?08/2023 Generated for Ly thurman/Shirley/Leila on:?07/13/2024 07:10 AM EST History and Physical Notes * HPI (History of Present Illness) Category Sub-Category Detail Notes Category Not es Skin problems Nature: dryness scaling redness Location: B/L Course: worse Treatments: medication ( AM Lact in ) At Risk footcare Pt States Last PCP Visit: Date: 3 Examination Category Sub-Category Detail Notes Category Not es Neurological SENSORY: Neurological exa m reveals intact sensorium, pain sensation normal, vibration sensation intact, pinprick sensation is normal in the lower extremities, 5.07 monofilament test performed at plantar aspects of 5 varied sites per foot shows sensation, normal, B/L, Pt denies, anesthesia, burning, paresthesia, tingling, B/L Dermatologic SKIN FINDINGS: Skin shows sign( s) of, erythema, scaling, in a moccasin fashion, no fissure(s) present, B/L interdigital maceration 4th bilateral Orthopedic DIGITAL DEFORMITIES: Digital con tracture, PIPJ, 2-5 B/L, incompl-reducable to push-up test, no over, nor underlapping, Reveals swelling/redness/enlargement of PIPJs, with evidence of shoe producing skin irritation MUSCLE STRENGTH: 5/5 all groups in a symmetrical fashion , B/L General Examination GENERAL APPEARANCE: Reveals a pleasant, alert, well nourished, well developed, well hydrated individual, who demonstrates proper attention to hygene/body habitus, and is in no acute distress FOOT EXAM: Lower Extremity Neurological Exa m performed:: Yes ORIENTED: person, place, and t serge Footwear Evaluation Footwear Evaluation performe d:: Yes Ophthalmology Referral DIABETES EYE EXAM Diabetic Retinopa thy Screening:: Yes Findings of Diabetic Eye Exam:: no retin opathy Vascular DP PULSES(B): 3/4, B/L PT PULSES(B): 3/4, B/L CAPILLARY FILL TIME: immediate, all digi ts, B/L TEMPERTURE GRADIENT(C): normal, warm to cool, proximal to distal, B/L, B/L TROPHIC CONDITION-TEXTURE/ELASTICITY/TURGOR/HAIR GROWTH(B): normal, B/L EDEMA(C): absent, B/L PIGMENTATION: normal, B/L Nails NAILS are: Elongated, overg rown, dystrophic, lytic, greater than 3mm thick, discolored and friable with crumbly malodorous subungual debris, with pain on palpation 1-5 B/L
--- OUTSIDE RECORDS SUMMARY | 2024-07-13 07:11 | XMS_ITS | Patient Health Record ---
Author Organization [facility] Address [address] [address] Care Team Providers Care Billing Supervisor Name Role Phone Jalen MCGUIRE, Jesi Klein Primary Care Provider Un available Phyllis Cast Unavailable [phone] Allergies No Known Allergies Reason For Referral Diagnosis 1 Diabetes (E11.9) Referring Provider First Name Jesi Kendrick Referring Provider Last Name Jalen Referring Provider Speciality Internal M edicine Referred Organization [facility] [place] Referred Provider Phyllis Cast Referred Address [address] [facility] [address] ,[place], [place],[address], Referred Provider Specialty Podiatry Referral Priority Routine Medications Medication SIG (Take, Route, Frequency, Duration) Notes Start Date End Date Status Multivitamin - as directed Orally Active Aniwa 3-6-9 Fatty Acids - as directed Orally Active metFORMIN HCl 1000 MG 1 tablet with [...] Twice a day for 30 days Active JpR40-Rizwktu E Acti ve Vitamin D3 Active Glucosamine Chondroitin Adv Active Calcium Carbonate-Vitamin D3 Unknown Atorvastatin Calcium 40 MG 1 tablet Oral ly Once a day for 30 day(s) Active Ciclopirox Olamine 0.77 % 1 application to affected area Externally Twice a day to effected areas on feet for 30 days 08/30/2023 Active Immunizations Vaccine Route Administration Date Status Comme nts Influenza Unknown 04/29/2023 Administered Social History Tobacco Use: Social History Observation [...] Are you an other tobacco user? No Problems Problem Type SNOMED Code ICD Code Onset Dates Problem Status W/U Status Risk Notes Problem Acquired hammer toe of right foot (7573634948183072 ) Other hammer toe(s) (acquired), right foot (M20.41) Active confirmed Problem Acquired hammer toe of left foot (4436065513992644 ) Other hammer toe(s) (acquired), left foot (M20.42) Active confirmed Problem Diabetes mellitus without complication (892308644) Diabetes (E11.9) Active confirmed Problem [id number] Type 2 diabetes mellitus without complication, without long-term current use of insulin (E11.9) Active confirmed Vital Signs Height 6ft in 08/30/2023 Weight 222 lbs 08/30/2023 BMI 30.11 kg/m2 08/30/2023 Encounters Encounter Location Date Provider Diagnosis [facility] [address] [address] 08/30/2023 Phyllis Serene Type 2 diabetes mellitus without complication, without long-term current use of insulin E11.9 and Tinea pedis of both feet B35.3 Assessments Encounter Date Diagnosis (ICD Code) Assessment Notes Treatment Notes Treatment Clinical Notes Section Notes 08/30/2023 Type 2 diabetes mellitus without complication, without long-term current use of insulin (ICD-10 - E11.9) 08/30/2023 Tinea pedis of both feet (ICD-10 - B35.3) Plan Of Treatment Next Appt Details Provider Name:Phlylis bhakta, 09/01/2024 09:00:00 AM, [address] [place] [address], [phone], Insurance Providers Payer Name Payer Address Payer Phone Subscriber Number Group Number Insured Name Patient Relationship to Insured Coverage Start Date Coverage End Date [facility] 65 Medicare Preferred [address] [place] [address] [id number] Ken Justice Self - patient is the insured Medical (General) History Medical History History ICD Code Hypertension Kidney stones Dyslipidemia Arthritis Cholesterol type II diabetes Measles Chicken pox Surgical History Surgery Date(Month/Year)
[2024-07-13 10:35] LABS: Alanine Aminotransferase 34 U/L (0-40); Anion Gap 12 (12-20); Aspartate Amino Transferase 30 U/L (5-37); Blood Urea Nitrogen 17 mg/dL (9-16); Calcium 9.7 mg/dL (8.4-10.2); Carbon Dioxide 25 mmol/L (22-29); Chloride 109 mmol/L (96-108); Cholesterol 110 mg/dL (<200); Estimated Glomerular Filt Rate > 60; Glucose Fasting 128 mg/dL (60-99); HDL Cholesterol 37 mg/dL (>40); LDL Cholesterol Calculated 50 mg/dL (<100); Potassium 4.5 mmol/L (3.3-5.1); Sodium 141 mmol/L (135-145); Triglycerides 115 mg/dL (<150)
[2024-07-13 11:35] LABS: Estimated Average Glucose 166 mg/dL; Hemoglobin A1c % 7.4 % (<6.0); Total Hemoglobin (HGBA1C) 3368.2824 umol/L
== END 2024-07-13 07:09 | disposition home or self-care (01) ==
LOC: HO.HMGCLDS 07:08
PROVIDERS: PCP Internal Medicine; Visit Provider Internal Medicine
DX: E11.65 Type 2 diabetes mellitus with hyperglycemia (principal); I10 Essential (primary) hypertension; E78.5 Hyperlipidemia, unspecified
CPT/HCPCS: 36415; 80048; 80061; 83036; 84450; 84460

== ENCOUNTER 2024-07-15 10:33 | Outpatient (AMB) | payer BC, SELFPAY ==
--- OUTSIDE RECORDS SUMMARY | 2024-07-15 10:36 | XMS_ITS ---
Author Organization [facility] Address [address] [facility] [place] [place] [address] Care Team Providers Care Land Reclamation Specialist Name Role Phone Jalen MCGUIRE, Jesi Klein Primary Care Provider Un available Phyllis Cast Unavailable [phone] Allergies No Known Allergies REASON FOR VISIT [...] on feet for 30 days 08/30/2023 Active LxY96-Gfwxiyh E Acti ve Multivitamin - as directed Orally Active Sanders 3-6-9 Fatty Acids - as directed Orally [...] 08/30/2023 Encounters Encounter Location Date Provider Diagnosis [facility] [place] [address] [place] [address] 08/30/2023 Phyllis Cast Type 2 diabetes mellitus [...] Reason: Provider Name:Phyllis bhakta, 09/01/2024 09:00:00 AM, [address] [place] [address], [phone], Progress Notes * Skyler JUSTICEcheyenne GDOB:[birth year] (73 yo M)Acc No.[id number]:08/30/2023 Progress Note Patient:?Ken Justice Provider:?Phyllis Cast DPM :1950???Age:73 Y???Sex:Male Kenn e:08/30/2023 Address:[address] [place], [place] [id number] Pcp:Lonnie Lamas Subjective: * Chief Complaints: * [...] Orally Multivitamin - Liquid as directed Orally YkD26-Zeggikd E Ammonium Lactate 12 % Cream 1 [...] Tablet 1 tablet Orally Once a dayTaking Sanders 3-6-9 Fatty Acids - Capsule as directed Orally Taking Multivitamin - Liquid as directed Orally Taking OgY90-Rvrnyyp E Taking Ammonium Lactate 12 % Cream [...] Cast DPM Date:?08/2023 Generated for Ly thurman/Shirley/Leila on:?07/15/2024 10:35 AM EST History and Physical Notes * [...] Eye Exam:: no retin opathy Vascular DP PULSES (B): 3/4, B/L PT PULSES (B): 3/4, B/L CAPILLARY FILL TIME: immediate, all digi ts, B/L TEMPERTURE GRADIENT (C): normal, warm to cool, proximal to distal, B/L, B/L TROPHIC CONDITION-TEXTURE/ELASTICITY/TURGOR/HAIR GROWTH (B): normal, B/L EDEMA (C): absent, B/L PIGMENTATION: normal, B/L Nails NAILS are: Elongated, overg rown, dystrophic, lytic, greater than 3mm thick, discolored and friable with crumbly malodorous subungual debris, with pain on palpation 1-5 B/L
--- OUTSIDE RECORDS SUMMARY | 2024-07-15 10:36 | XMS_ITS | Patient Health Record ---
Author Organization [facility] Address [address] [place] [address] Care Team Providers Care Cutting Room Supervisor Name Role Phone Jalen MCGUIRE, Jesi Klein Primary Care Provider Un available Phyllis Cast Unavailable [phone] Allergies No Known Allergies Reason For Referral Diagnosis 1 Diabetes (E11.9) Referring Provider First Name Jesi Kendrick Referring Provider Last Name Jalen Referring Provider Speciality Internal M edicine Referred Organization [facility] Referred Provider Phyllis Cast Referred Address [address] [facility] [address] ,[place], [place],[address], Referred Provider Specialty Podiatry Referral Priority Routine Medications Medication SIG (Take, Route, Frequency, Duration) Notes Start Date End Date Status Multivitamin - as directed Orally Active [place] 3-6-9 Fatty Acids - as directed Orally [...] Twice a day for 30 days Active HiI90-Hatbwej E Acti ve Vitamin D3 Active Glucosamine [...] Problem Acquired hammer toe of right foot (2659872560304508 ) Other hammer toe(s) (acquired), right foot (M20.41) Active confirmed Problem Acquired hammer toe of left foot (3700811591353594 ) Other hammer toe(s) (acquired), left foot (M20.42) Active confirmed Problem Diabetes mellitus without complication (879971041) Diabetes (E11.9) Active confirmed Problem [id number] Type 2 diabetes mellitus without complication, without long-term current use of insulin (E11.9) Active confirmed Vital Signs Height 6ft in 08/30/2023 Weight 222 lbs 08/30/2023 BMI 30.11 kg/m2 08/30/2023 Encounters Encounter Location Date Provider Diagnosis [facility] [address] [address] 08/30/2023 Phyllis Serene Type 2 diabetes mellitus [...] Plan Of Treatment Next Appt Details Provider Name:Phyllis bhakta, 09/01/2024 09:00:00 AM, [address] [place] [address], [phone], Insurance Providers Payer Name Payer Address Payer Phone Subscriber Number Group Number Insured Name Patient Relationship to Insured Coverage Start Date Coverage End Date [facility] 65 Medicare Preferred [address] [place] [address] [id number] Ken Justice Self - patient is the insured Medical (General) History Medical History History ICD Code Hypertension Kidney stones Dyslipidemia Arthritis Cholesterol type II diabetes Measles Chicken pox Surgical History Surgery Date(Month/Year)
[2024-07-15 10:38] VITALS: BP 110/60; PULSE 83; O2SAT 99; BMI 26.2
--- NOTE | 2024-07-15 10:38 | A.OFFPC_ITS ---
Vital Signs 07/15/24 10:38 Height 6 ft Weight 193 lb BMI 26.2 BP 110/60 Blood Pressure Location Lt brachial Position Sitting Pulse 83 Pulse Source Pulse Oximeter Pulse Oximetry (%) 99 Oxygen Delivery Method Room Air Intake Visit Reasons: 3m follow up Intake Note: Pt is here today for his 3mo. f/u labs Allergies No Known Allergies Allergy (Verified 07/15/24 11:06) Medication List - Last Reconciled 07/15/24 by Jesi Rao MD antiarthritic combination no.2 (glucosamine-chondroitin) mg PO atorvastatin 40 mg PO DAILY calcium carbonate-vitamin D3 600 mg-5 mcg (200 unit) (Calcium 600 + D(3)) caps PO cholecalciferol (vitamin D3) 125 mcg PO .every other day coenzyme Q28-kmaomuy E 100-100 mg-unit caps PO Jardiance (empagliflozin) 10 mg PO QAM NS lancets (Acti-Simon Lancets) Check blood sugar once daily before meal lisinopril 10 mg PO DAILY metformin 1,000 mg PO BID multivitamin 1 tab PO DAILY omega-3 acid ethyl esters 1 cap PO DAILY OneTouch Ultra Test (blood sugar diagnostic) Test blood sugar once a day NS pioglitazone 30 mg PO DAILY Tobacco use date assessed: 07/15/24 Fall risk assessment: No Falls in past year Last assessed Fall Risk: 07/15/24 Dental Screening Dental Screen Date: 07/15/24 Did you have a dental visit in the last 12 months?: Yes Did you have a dental problem in the last 6 months where you did not have access to dental care?: No Was dental information given to patient?: Patient has dentist HPI 3m follow up HPI Details 73-year-old male here today for follow-u p on his diabetes mellitus, hypertension and hyperlipidemia. Has been compliant with taking his medications, has been feeling well with no complaints at present time. [facility] Medical History Diabetes mellitus with hyperglycemia, without long-term current use of insulin History of kidney stones Type 2 diabetes mellitus without complication, with no history of insulin use Essential hypertension Dyslipidemia Surgical History H/O colonoscopy Family History Father Aneurysm Mother No problems noted. Social History Housing: Condominium Alcohol intake: never Patient Tobacco Use Status: Never used Tobacco e-Cigarette/Vaping Use: Never Used service: No Current occupational status: retired Cognitive needs: No Hearing needs: No Vision needs: Yes Questionnaire Thrive Questionnaire Date Thrive assessed: 04/14/24 I am a: Patient What is your living situation today?: I have a steady place to live Within the past 12 months, did the food you bought not last and you didn't have the money to get more?: Never true Within the past 12 months, did you worry whether your food would run out before you got money to buy more?: Never true Do you have trouble paying for medicines?: No Do you have trouble getting transportation to medical appointments?: No Do you have trouble paying your heating and electricity bill?: No Do you have trouble taking care of your child, family member or friend?: No Do you have trouble with day-to-day activities such as bathing, preparing meals, shopping, managing finances, etc.?: No Are you currently unemployed and looking for a job?: No Are you interested in more education?: No Please select the resources that you would like help with: None Currently or been in a relationship where the following occur: No concerns reported THRIVE Score: 0 AUDIT C Alcohol Use Questionnaire (AUDIT-C) 2. How many drinks containing alcohol do you have on a typical day when you are drinking?: 1 or 2 3. How often do you have six or more drinks on one occasion?: Never Total Score: 0 SNEHA-7 AMB Questionnaire SNEHA-7 Date SNEHA - 7 assessed: 04/14/24 Source: Developed by Drs. Bryan Vieyra, Sandra Joy, Jorge Llamas and colleagues, with an educational calin from [employer]. Review of Systems Const Denies body aches, Denies fatigue, Denies fever(s), Denies headache(s) and Denies weakness Eyes Details: has appt with Dr Alcocer in 07/2024 ENT Reports Normal hearing present and Denies headache(s) Card Denies chest pain, Denies lightheadedness, Denies palpitations and Denies dyspnea Resp Denies chest congestion, Denies cough and Denies dyspnea GI Denies abdominal pain, Denies change in bowel habits and Denies heartburn Denies dysuria, Denies urinary frequency and Denies urinary urgency Musc Denies back pain, Denies myalgias, Denies arthralgias, Denies muscle weakness and Denies stiffness Skin/Breast Details: Currently gets diabetes foot exam with Dr. Cast Denies lesions and Denies rash Neuro Reports Normal hearing present, Denies headache(s), Denies Sensory deficit (Neuro) and Denies weakness Psych Reports no additional complaints Endo Denies fatigue, Denies polydipsia, Denies polyuria and Denies palpitations Johann/Lymph Reports no additional complaints Aller/Immun Reports no additional complaints Physical exam (Primary Care) Vital Signs: Last Vital Signs Pulse 83 07/15/24 10:38 BP 110/60 07/15/24 10:38 Pulse Ox 99 07/15/24 10:38 Oxygen Delivery Method Room Air 07/15/24 10:38 BMI result Body Mass Index 26.2 BMI Assessment/Plan discussion: High BMI High, discussed plan: lifestyle, weight reduction, dietary and physical activity Tobacco/Smoking Status: Tobacco use Status Tobacco use date assessed 07/15/24 07/15/24 10:39 Patient Tobacco Use Status Never used Tobacco 07/15/24 10:39 e-Cigarette/Vaping Use Never Used 07/15/24 10:39 Thrive Assessment: Date of Thrive Assessment Date Thrive assessed 04/14/24 07/15/24 10:39 Currently or been in a relationship where the following occur: No concerns reported Const General: healthy appearing, no acute distress and alert Orientation/consciousness: patient oriented x3 HENMT Head: Yes normocephalic Ears: hearing grossly normal bilaterally and external ears normal General nose exam: Normal external nose present and No nasal discharge present Face and sinus: Yes face symmetric Mouth: Normal oral and palatal mucosa present, oropharynx normal and moist mucous membranes Eyes General: appearance normal, both eyes and all related structures Neck Neck: Yes full ROM and Yes no lymphadenopathy Thyroid: Thyroid normal Resp Effort & Inspection: normal respiratory effort and able to speak in complete sentences Auscultation: clear to auscultation bilaterally Cardio Jugular venous distension: no JVD Rate: regular rate Rhythm: regular rhythm Heart sounds: S1 normal heart sound present and S2 normal heart sound present GI Inspection: Yes normal to inspection Palpation (GI): Soft to palpation Auscultation: normal bowel sounds Back/Spine/Pelvis Back: No back tenderness Skin Other: sees Dr Wells yearly General skin exam: no rashes or lesions noted Neuro General: patient oriented x3, gait normal, moves all extremities, no focal motor deficits, CN's II-XI intact bilaterally and normal sensation to monofilament Cranial nerves: Yes Normal hearing present Cognition (Neuro): normal cognition Gait exam (Neuro): Normal gait present Motor exam (neuro): 5/5 motor strength present throughout Sensory Exam: No Sensory deficit (Neuro) Extrem General: Yes normal to inspection, Yes full ROM, Yes no pedal edema and Yes normal gait Psych Appearance: grossly normal and well kempt Mental Status: mental status grossly normal Speech and movement: Normal speech and movement present Thought process: Normal thought process present Thought content: Normal thought content present Results Reviewed Results Reviewed: jose: Ken Justice Age/Sex: 73/M : 1950 Unit#: [id number] Attend Dr: Jesi Rao MD Re07/13/24 Status: DEP REF Location: [facility] Disch: SPEC : [id number] DANNY: 07/13/24 STATUS: COMP REQ : [id number] RECD: 07/13/24-[address]: Jesi Rao MD COMP: 07/13/245 ENTERED: 07/13/[address] [facility] [address]: ORDERED: Met Prof Fast, AST, ALT, Lipid Panel Test Result Flag Reference Sodium 141 135-145 mmol/L Potassium 4.5 3.3-5.1 mmol/L CL 109 H 96-108 mmol/L CO2 25 22-29 mmol/L Gap 12 12-20 BUN 17 H 9-16 mg/dL Creat 0.81 0.5-1.4 mg/dL eGFR > 60 Chronic Kidney Disease: Estimated GFR < 60 mL/min/1 .73m2 Severe Kidney Disease: Estimated GFR < 15 mL/min/1.73m2 FBS 128 H 60-99 mg/dL A fasting glucose of 126 mg/dl or greater on more than one occasion is considered diagnostic of diabetes. CA 9.7 8.4-10.2 mg/dL AST (GOT) 30 5-37 U/L ALT (GPT) 34 0-40 U/L Triglyceride 115 <150 mg/dL Desirable Triglyceride: less than 150 mg/dL Borderline High Triglyceride 150-199 mg/dL High Triglyceride: 200-499 mg/dL Very High Triglyceride: greater than or equal to 5OO mg/dL Cholesterol 110 <200 mg/dL Desirable Cholesterol: less than 200 mg/dL Borderline High Cholesterol: 200-239 mg/dL High Cholesterol: greater than 239 mg/dL LDL Calculated 50 <100 mg/dL Desirable LDL: less than 100 mg/dL Near Optimal/Above Optimal LDL: 110-129 mg/dL Borderline High LDL: 130-159 mg/dL High LDL: 160-189 mg/dL Very High LDL: greater than or equal to 190 mg/dL HDL 37 L >40 mg/dL Desirable HDL: greater than 40 mg/dL Note: This HDL assay may give artificially low results in patients with liver disease. Laboratory Tests 12/09/23 04/11/24 07/13/24 07:45 08:05 07:11 Estimat Average Glucose 186 166 Hemoglobin A1c % 8.1 H 7.4 H Urine Creatinine 76.65 Urine Microalbumin 6.0 Microalb/Creat Ratio 7.8 Coding Level of Care Code Est Pt Level 4 (97630) Complex EM visit Add On G2211 Diagnoses Dyslipidemia E78.5 Essential hypertension I10 Diabetes mellitus with hyperglycemia, without long-term current use of insulin E11.65 Assessment & Plan Assessment & Plan (1) Dyslipidemia: Code(s): E78.5 - Hyperlipidemia, unspecified Category: Medical Plan: Reviewed recent fasting lipid profile with patient with levels within normal limits except for low good cholesterol . Continue atorvastatin 40 mg daily plus [place] 3 fatty acid supplements , in addition to adherence to low- cholesterol diet and regular exercise, at least 30 minutes 3 to 4 times a week. Advised patient to make healthy food choices, eat more fruits, vegetables, whole grains, wild caught fish and low-fat dairy. Limit amount of meat and fried or fatty food products, as well as processed foods and fast foods. Follow-up scheduled with repeat fasting lipid panel in 4 months. (2) Essential hypertension: Code(s): I10 - Essential (primary) hypertension Category: Medical Plan: Blood pressure at goal of less than 130/80. Continue lisinopril 10 mg daily Reinforced importance of following a low sodium diet, getting regular exercise, and lowering stress levels. (3) Diabetes mellitus with hyperglycemia, without long-term current use of insulin: Code(s): E11.65 - Type 2 diabetes mellitus with hyperglycemia Category: Medical Plan: Improving diabetes control now with hemoglobin A1c at 7.4%. Will continue on Jardiance 10 mg daily in the morning an hour before breakfast and before any medications, metformin 1000 mg 1 tablet twice a day and pioglitazone 30 mg daily repeat hemoglobin A1c again in 4 months. Up-to-date with his diabetes retinopathy screening and diabetes foot exam Orders: Orders Microalbumin, Random (w Creat) 10/27/24 E11.65 - Type 2 diabetes mellitus with hyperglycemia, E78.5 - Hyperlipidemia, unspecified, I10 - Essential (primary) hypertension Lipid Panel 10/27/24 E11.65 - Type 2 diabetes mellitus with hyperglycemia, E78.5 - Hyperlipidemia, unspecified, I10 - Essential (primary) hypertension Aspartate Amino Transferase 10/27/24 E11.65 - Type 2 diabetes mellitus with hyperglycemia, E78.5 - Hyperlipidemia, unspecified, I10 - Essential (primary) h ypertension Vitamin D 25-OH Total 10/27/24 E11.65 - Type 2 diabetes mellitus with hyperglycemia, E78.5 - Hyperlipidemia, unspecified, I10 - Essential (primary) hypertension Basic Metabolic Panel Fasting 10/27/24 E11.65 - Type 2 diabetes mellitus with hyperglycemia, E78.5 - Hyperlipidemia, unspecified, I10 - Essential (primary) hypertension Alanine Aminotransferase 10/27/24 E11.65 - Type 2 diabetes mellitus with hyperglycemia, E78.5 - Hyperlipidemia, unspecified, I10 - Essential (primary) hypertension Hemoglobin A1c 10/27/24 E11.65 - Type 2 diabetes mellitus with hyperglycemia, E78.5 - Hyperlipidemia, unspecified, I10 - Essential (primary) hypertension Medications: Refilled Nubleer MediaTouch Ultra Test (blood sugar diagnostic) Test blood sugar once a day 100 ea 5RF NS E11.9 - Type 2 diabetes mellitus without complications
== END 2024-07-15 11:36 | disposition home or self-care (01) ==
PROVIDERS: PCP Internal Medicine; Visit Provider Internal Medicine
DX: E78.5 Hyperlipidemia, unspecified (principal); I10 Essential (primary) hypertension; E11.65 Type 2 diabetes mellitus with hyperglycemia

== ENCOUNTER 2024-11-09 08:38 | Outpatient (REF) | payer BC, SELFPAY ==
--- OUTSIDE RECORDS SUMMARY | 2024-11-09 09:09 | XMS_ITS | Clinical Summary ---
Author Organization [facility] [address] [facility] Address [address] [place] [address] Phone Care Team Providers Care Gynecologist Name Role Phone Jesi Rao MD Primary Care Provider Allergies No known active allergies Medications metFORMIN (GLUCOPHAGE) 1,000 mg tablet Take 1,000 mg by mouth 2 times daily (with meals). Active ANTIARTHRITIC COMBINATION NO.2 ORAL Take by mouth. Activ e atorvastatin (LIPITOR) 40 mg tablet Take 1 tablet (40 mg total) by mouth at bedtime. Active calcium citrate-vitamin D (CITRACAL+D) 315 mg-5 mcg (200 unit) per tablet Take 1 tablet by mouth 1 (one) time each day. Active alendronate-chol ecalciferol (FOSAMAX PLUS D) 70 mg- 2,800 unit per tablet Take 1 tablet by mouth every 7 (seven) days. Take in the morning with a full glass of water, on an empty stomach, and do not take anything else by mouth or lie down for the next 30 min. Active coenzyme Q-10 100 mg capsule Take 1 capsule (100 mg total) by mouth 1 (one) time each day. Active empagliflozin (Jardiance) 10 mg tablet Take 1 tablet (10 mg total) by mouth 1 (one) time each day in the morning. Active pioglitazone (ACTOS) 30 mg tablet Take 1 tablet (30 mg total) by mouth 1 (one) time each day. Active glucose blood test strip 1 each by Other route if needed. Use as instructed Active omega-3 acid ethyl esters (LOVAZA) 1 gram capsule Take 1 capsule (1 g total) by mouth 2 (two) times a day. Active multivitamin with minerals tablet Take 1 tablet by mouth 1 (one) time each day. Active Active Problems Problem Noted Date Diagnosed Date Diabetes mellitus type 2, un complicated ([facility] V24, [facility] V28) 11/22/2015 Gallstones 11/22/2015 Overview (08/27/2024): Seen on CT 02/07 Hyperlipidemia 11/22/2015 Kidney stone 11/22/2015 Overview (08/27/2024): Right ureteral stone 02/07; laser stone ablation Encounters Date Type Department Care Team Description 10/27/2024 Telephone Gastroenterology - 299 [facility] [address] [address] Chau Mccrary MD special procedure 08/31/2024 Telephone Gastroenterology - [address] [address] Damian Arce MD from Last 3 Months Social History Tobacco Use Types Packs/Day Years Used Date Smoking Tobacco: Never Assessed Sex and Gender Information Value Date Recorded Sex Assigned at Not on file Legal Sex Male 4:14 PM EST Gender Identity Not on file Sexual Orientation Not on file Plan of Treatment Upcoming Encounters Date Type Department Care Team (Late st Contact Info) Description 01/13/2025 9:30 AM EDT Appointment [facility] [address] [place] [phone] Damian Arce MD [address] [address] Health Maintenance Due Date Last Done Comments Diabetes: Annual GFR (Glomer ular Filtration Rate) 1950 Diabetes: Annual Foot Exam 1961 Diabetes: Annual Retina Eye Exam 1961 DTaP,Tdap,and Td Vaccines (1 - Tdap) 1970 Pneumococcal Vaccine: 50+ Ye ars (1 of 2 - PCV) 1970 Zoster Vaccines (1 of 2) 2001 RSV Immunization Adult Patie nts (1 - Risk 60-74 years 1-dose series) 2011 COVID-19 Vaccine (2023-2 5 season) 2024 Abdominal Aortic Aneurysm (A AA) Screen 08/27/2024 Cholesterol Screening (Lipid Panel) 08/27/2024 Colorectal Cancer Screening: Colonoscopy 08/27/2024 Depression Screening 08/27/2024 Diabetes: Annual Urine Albumin-Creatinine Ratio (uACR) 08/27/2024 Diabetes: Blood Sugar Contro l Test (HGBA1C) 08/27/2024 Falls Risk Assessment 08/27/2024 Hepatitis C Screening 08/27/2024 Medicare Annual Wellness Visit 08/27/2024 Social Influencers of Health Screening 08/27/2024 Influenza Vaccine (Season Ended) 2025 HIB Vaccines Aged Out No longer eligi ble based on patient's age to complete this topic HPV Vaccines Aged Out No longer eligi ble based on patient's age to complete this topic Hepatitis A Vaccines Aged Out No long er eligible based on patient's age to complete this topic Hepatitis B Vaccines Aged Out No long er eligible based on patient's age to complete this topic IPV Vaccines Aged Out No longer eligi ble based on patient's age to complete this topic MMR Vaccines Aged Out No longer eligi ble based on patient's age to complete this topic Meningococcal ACWY Vaccine Aged Out N o longer eligible based on patient's age to complete this topic Meningococcal B Vaccine Aged Out No l onger eligible based on patient's age to complete this topic RSV Immunization Patients Un angeline 20 months Aged Out No longer eligible b ased on patient's age to complete this topic Varicella Vaccines Aged Out No longer eligible based on patient's age to complete this topic Insurance BLUE CROSS - [place] MEDICARE ADVANTAGE Care Teams Gynecologist Relationship Specialty Start Date End Date Jesi Rao MD [address] [place] [address] PCP - General Internal Medicine 08/28/24
--- OUTSIDE RECORDS SUMMARY | 2024-11-09 09:09 | XMS_ITS ---
Author Organization [facility] Address [address] [facility] [place] [address] Care Team Providers Care Installation Helper Name Role Phone Jalen MCGUIRE, Jesi Klein Primary Care Provider Un available Phyllis Cast Unavailable [phone] Allergies No Known Allergies REASON FOR VISIT [...] on feet for 30 days 08/30/2023 Active RwF81-Bkossdt E Acti ve Multivitamin - as directed Orally Active [place] 3-6-9 Fatty Acids - as directed Orally [...] 08/30/2023 Encounters Encounter Location Date Provider Diagnosis [facility] [place] [address] [place] [address] 08/30/2023 Phyllis Cast Type 2 diabetes mellitus [...] Up: 1 Year, Reason: Provider Name:Phyllis bhakta, 08/31/2025 09:00:00 AM, [address] [place] [address], [phone], Progress Notes * Skyler JUSTICEcheyenne GDOB:[birth year] (73 yo M)Acc No.[id number]:08/30/2023 Progress Note Patient:?Ken Justice Provider:?Phyllis Cast DPM :1950???Age:73 Y???Sex:Male Kenn e:08/30/2023 Address:[address] [place], [place] [id number] Pcp:Lonnie Lamas Subjective: * Chief Complaints: * [...] Orally Multivitamin - Liquid as directed Orally SsA37-Etvwyfo E Ammonium Lactate 12 % Cream 1 [...] Tablet 1 tablet Orally Once a dayTaking [place]uckerman 3-6-9 Fatty Acids - Capsule as directed Orally Taking Multivitamin - Liquid as directed Orally Taking YoL36-Fwnshdj E Taking Ammonium Lactate 12 % Cream [...] 7.2 * Examination: ???Ophthalmology Referral: ?DIABETES EYE EXAM?Diabetic Retinopathy Screening:?Yes ?Findings of Diabetic Eye Exam:?no retinopathy?Nails: ?NAILS are:?Elongated, overgrown, dystrophic, lytic, greater than [...] in no acute distress.?ORIENTED:?person, place, and time.?FOOT EXAM:?Lower Extremity Neurological Exam performed:?Yes ?Footwear Evaluation?Footwear Evaluation performed:?Yes?Neurological: ?SENSORY:?Neurological exam reveals intact sensorium, pain sensation [...] Provider:?Phyllis Cast DPM Date:?08/2023 Generated for Ly thurman/Faxing/eTransmitting on:?11/09/2024 09:09 AM EDT History and Physical Notes * HPI (History [...]
--- OUTSIDE RECORDS SUMMARY | 2024-11-09 09:09 | XMS_ITS ---
Author Organization [facility] Address [address] [place] [address] Care Team Providers Care Intelligence Research Specialist Name Role Phone Jalen MCGUIRE, Jesi Klein Primary Care Provider Un available Phyllis Cast Unavailable [phone] Allergies No Known Allergies REASON FOR VISIT At Risk Footcare, Painful Nail(s) aggrevated by shoes and causing difficulty standing/walking., Skin problem(s), Toe Irritation Medications Medication SIG (Take, Route, Frequency, Duration) Notes Start Date End Date Status Multivitamin - as directed Orally Active [place] 3-6-9 Fatty Acids - as directed Orally Active Calcium Carbonate-Vitamin D3 Unknown Ammonium Lactate 12 % 1 application to a ffected area Externally to feet Twice a day for 30 days Active [id number]-[id number] E Acti ve glyBURIDE 5 MG 1 tablet with breakf ast or the first main meal of the day Orally Once a day for 30 day(s) Active Lisinopril 10 MG 1 tablet Orally Once a day for 30 day(s) Active metFORMIN HCl 1000 MG 1 tablet with a me al Orally Once a day for 30 day(s) Active Pioglitazone HCl 30 MG 1 tablet Orally O nce a day for 30 day(s) Active Atorvastatin Calcium 40 MG 1 tablet Oral ly Once a day for 30 day(s) Active Vitamin D3 Active Glucosamine Chondroitin Adv Active Ciclopirox Olamine 0.77 % 1 application to affected area Externally Twice a day to effected areas on feet for 30 days Active Social History Tobacco Use: Social History Observation Description Date Details (start date - stop date) Never Smoker NA - NA Tobacco Use/Smoking Question Answer Notes Are you a: nonsmoker Tobacco use other than smoking: Question Answer Notes Are you an other tobacco user? No Vital Signs Height 6ft in 09/01/2024 Weight 184 lbs 09/01/2024 BMI 24.95 kg/m2 09/01/2024 Blood pressure systolic 117 mm Hg 09/01/19 25 Blood pressure diastolic 72 mm Hg 025 Encounters Encounter Location Date Provider Diagnosis [facility] [place] [address] [place] [address] 09/01/2024 Phyllis Cast Type 2 diabetes mellitus without complication, without long-term current use of insulin E11.9 ; Tinea pedis of both feet B35.3 ; Other hammer toe(s) (acquired), right foot M20.41 and Other hammer toe(s) (acquired), left foot M20.42 Assessments Encounter Date Diagnosis (ICD Code) Assessment Notes Treatment Notes Treatment Clinical Notes Section Notes 09/01/2024 Type 2 diabetes mellitus without complication, without long-term current use of insulin (ICD-10 - E11.9) 09/01/2024 Tinea pedis of both feet (ICD-10 - B35.3) 09/01/2024 Other hammer toe(s) (acquired), right foot (ICD-10 - M20.41) 09/01/2024 Other hammer toe(s) (acquired), left foot (ICD-10 - M20.42) Plan Of Treatment Medication Medication Name Sig Start Date Stop Date Notes Ciclopirox Olamine 0.77 % 1 application to affected area Externally Twice a day to effected areas on feet for 30 days Next Appt Details Follow Up: 1 Year, Reason: Provider Name:Phyllis bhakta, 08/31/2025 09:00:00 AM, [address] [place] [address], [phone], Progress Notes * Ken JUSTICE GDOB:[birth year] (74 yo M)Acc No.[id number]:09/01/2024 Progress Note Patient:?Ken JUSTICE G Provider:?Phyllis Cast DPM :1950???Age:74 Y???Sex:Male Kenn e:09/01/2024 Address:[address] [place] [address] , [facility] [place] Pcp:Lonnie Lamas Subjective: * Chief Complaints: * ???At Risk FootcarePainful N ail(s) aggrevated by shoes and causing difficulty standing/walking.Skin problem(s)Toe Irritation * HPI: ???At Risk footcare:?Pt States Last PCP Visit:?Date?06/28/2024 ???Skin problems:?Nature:?dryness scaling redness.?Location:?B/L .?Course:?improved.?Treatments:?medication ( AM Lactin ), Medication (Ciclopirox Olamine 0.77 Cream).?Toe pain:?Location:?B/L feet.?Duration:?several years.?Course:?worse.?Aggravated by:?shoes, any pressure.?Treatments:?change in shoes.? * ROS:?General/Constitutional:?Nausea?denies.?Vomiting?denies.?Hunger Thirst?denies.?Loss appetite?denies.?Chills?denies.?Fatigue?denies.?Fever?denies.?Night Sweats?denies.?Unexplained weight loss?denies.?Unexplained weight gain?denies.?HEENTM:?Dentures?admits.?Dizziness?denies.?Glasses/contacts?admits.?Retinopathy?den ies.?Blurred/double vision?denies.?TMJ?denies.?Discharge/drainage?denies.?Implants?denies.?Sore throat?denies.?Dental implants?denies.?Hard of hearing ?denies.?Difficulty chewing/swallowing/speaking?denies.?Nose bleeds?denies.?Sore mouth?denies.?Respiratory:?On O xygen?denies.?Pneumonia/pleurisy?denies.?Bronchitis?denies.?Emphysema?denies.?Co ughing?denies.?Cough blood?denies.?Shortness of breath?denies.?Wheezing?denies.?Cardiovascular:?Pacemaker?denies.?MVP?denies.?WPW?denies.?CHF?denies.?Heart attack?denies.?Septal defect?denies.?Rapid beat?denies.?Chest pain ?denies.?Atrial Fib.?denies.?Murmur/Palpitations?denies.?Gastrointestinal:?Hemorrhoids?denies.?Stomach/Abdominal pain?denies.?Dark blood stool?denies.?Irritable bowel ?denies.?Constipation?denies.?Diarrhea?denies.?Hematology:?Swelling?denies.?Clots?denies.?Varicose Veins?admits.?Bruising?denies.?Bleeding problem?denies.?Genitourinary:?Blood urine?denies.?Frequent/Painfu/urination/bladder control?denies.?Kidney stones?admits.?Infection (UTI)?denies.?Nephropathy?denies.?sex trans dis (STD)?denies.?Prostate?denies.?Musculoskeletal:?Hammertoes?denies.?Bunions?admits.?Back Pain?denies.?Muscle Cramps/ Resting?denies.?Muscle cramps / walking?denies.?Generalized aches and pains?denies.?Weakness?denies.?Integ.:?Hardy?denies.?Scars?denies.?Corns/calluses?denies.?Ingrown nails?denies.?Painful nails?denies.?Open Sores?denies.?Rashes?denies.?Neurologic:?Difficulty sleeping?denies.?Brain disorder?denies.?Numbness?denies.?Balance t rouble?denies.?Confusion?denies.?Fainting/blackouts?denies.?Tingling?denies.?James mors?denies.? * Medical History:? * Surgical History:?Denies Pas t Surgical History * Hospitalization/Major Diagno stic Procedure:?Denies Past Hospitalization * Family History:?Mother: dece ased, heart attack, poor circulation, diagnosed with Diabetic - NIDDM, Unspecified heart disease, Other specified conditions influencing health status.?Father: , aneurysm.? * Social History:?Tobacco Use:?Tobacco Use/Smoking?Are you a:?nonsmoker ?Tobacco use other than smoking?Are you an other tobacco user??No ???Miscellaneous:?Caffeine: yes, frequency:4 cups per day. ?Children: yes. ?Exercise: yes, walking,weights,stretching. ?Marital status: . 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 * Medications:?TakingGlucosami ne Chondroitin Adv Vitamin D3 Pioglitazone HCl 30 MG Tablet 1 tablet Orally Once a day metFORMIN HCl 1000 MG Tablet 1 tablet with a meal Orally Once a day Lisinopril 10 MG Tablet 1 tablet Orally Once a day glyBURIDE 5 MG Tablet 1 tablet with breakfast or the first main meal of the day Orally Once a day Atorvastatin Calcium 40 MG Tablet 1 tablet Orally Once a day [place] 3-6-9 Fatty Acids - Capsule as directed Orally Multivitamin - Liquid as directed Orally CoQ10- Vitamin E Ammonium Lactate 12 % Cream 1 application to affected area Externally to feet Twice a day Ciclopirox Olamine 0.77 % Cream 1 application to affected area Externally Twice a day to effected areas on feet Taking Glucosamine Chondroitin Adv Taking Vitamin D3 Taking Pioglitazone HCl 30 MG Tablet 1 tablet Orally Once a day Taking metFORMIN HCl 1000 MG Tablet 1 tablet with a meal Orally Once a day Taking Lisinopril 10 MG Tablet 1 tablet Orally Once a day Taking glyBURIDE 5 MG Tablet 1 tablet with breakfast or the first main meal of the day Orally Once a day Taking Atorvastatin Calcium 40 MG Tablet 1 tablet Orally Once a day Taking [place] 3-6-9 Fatty Acids - Capsule as directed Orally Taking Multivitamin - Liquid as directed Orally Taking CoQ10- Vitamin E Taking Ammonium Lactate 12 % Cream 1 application to affected area Externally to feet Twice a day Taking Ciclopirox Olamine 0.77 % Cream 1 application to affected area Externally Twice a day to effected areas on feet UnknownCalcium Carbonate-Vitamin D3 Medication List reviewed and reconciled with the patientUnknown Calcium Carbonate-Vitamin D3 Medication List reviewed and reconciled with the patient * Allergies:?N.K.D.A.yes[Aller gies Verified] Objective: * Vitals:?Ht: 6ft, Wt:184, BMI :24.95, Shoe size: 11.5, BP:117/72mm Hg, BS: 115, Ht-cm: 182.88 cm, Wt-k.46 kg. * ???Past Orders: ???Lab:HEMOGLOBIN A1C (GLYCO HEMOGLOBIN) (Order Date - 06/28/2024) (Collection Date & Time - 06/28/2024 08:57 AM) ? Value Reference Range ?HEMOGLOBIN A1C % (HH) 7.3 * Examination: ???Ophthalmology Referral: ?DIABETES EYE EXAM?Procedure Performed:?Yes ?Date of Exam Performed?08/29/2023 ?Findings of Diabetic Eye Exam:?no retinopathy?Dermatologic: ?SKIN FINDINGS:?Skin shows approximately 50 percent LESS, sign(s) of, erythema, scaling, in a moccasin fashion, no fissure(s) present, B/L,??The interspaces are clear, B/L.?Orthopedic: ?MUSCLE STRENGTH:?5/5 all groups in a symmetrical fashion , B/L.?DIGITAL DEFORMITIES:?Digital contracture, PIPJ, 2-5 B/L, incompl-reducable to push-up test, no over, nor underlapping, Reveals swelling/redness/enlargement of PIPJs, with evidence of shoe producing skin irritation , Digital contracture, PIPJ, 2-5 B/L, incompl-reducible to push-up test, no over, nor underlapping,?there is?evidence of shoe producing skin irritation.?FOOTWEAR:?good condition, Non-Diabetic with no OT.?General Examination: ?GENERAL APPEARANCE:?Reveals a pleasant, alert, well nourished, well developed, well hydrated individual, who demonstrates proper attention to hygene/body habitus, and is in no acute distress.?ORIENTED:?person, place, and time.?FOOT EXAM:?Lower Extremity Neurological Exam performed:?Yes ?Visual exam of foot performed:?Yes ?Date?09/01/2024 ?Footwear Evaluation?Footwear Evaluation performed:?Yes?Neurological: ?SENSORY:?Neurological exam reveals intact sensorium, pain sensation normal, vibration sensation intact, pinprick sensation is normal in the lower extremities, 5.07 monofilament test performed at plantar aspects of 5 varied sites per foot shows sensation, normal, B/L, Pt denies, anesthesia, burning, paresthesia, tingling, B/L.?Vascular: ?DP PULSES (B):?3/4, B/L.?PT PULSES (B):?3/4, B/L.?CAPILLARY FILL TIME:?immediate, all digits, B/L.?TROPHIC CONDITION-TEXTURE/ELASTICITY/TURGOR/HAIR GROWTH (B):?normal, B/L.?TEMPERTURE GRADIENT (C):?normal, warm to cool, proximal to distal, B/L, B/L.?PIGMENTATION:?normal, B/L.?EDEMA (C):?absent, B/L.? Assessment: * Assessment: 1.?Type 2 diabetes mellitus without complication, without long-term current use of insulin - E11.9 (Primary)???2.?Tinea pedis of both feet - B35.3???Specify :Acute problem, Uncomplicated (3)???3.?Other hammer toe(s) (acquired), right foot - M20.41???4.?Other hammer toe(s) (acquired), left foot - M20.42??? Plan: * Treatment: * Procedure Codes:? * [...] have encouraged the patient to call the office.?Digital Surgery:?Digital surgery was discussed with the patient, We elected to try conservative treatment at the present time, due to the patients medical history and increased asssociated post-operative risks.?Digital Treatment:?HT- I explained to the patient the possible etiologies of Hammertoes, including genetics/foot type/shoegear/activity level/exercise routine and the risks/benefits of all the different treatment options for their pain including: No treatment at all, Rest, Ice, New/supportive/wider/deeper Shoegear, Digital Padding/Strapping/Taping/Bracing/Gel protective sleeves, Foot/Ankle AFO Bracing, Stretching exercises, Deep Tissue Massage, Arch support/shoe inserts with splay metatarsal padding, and Custom orthoses. I insisted that any digital devices be removed daily and not worn overnight for safety. The patient is to carefully examine the toes daily for any skin irritation while using any splinting or padding device. The advantages and disadvantages of each option were discussed and the patients questions re: shoegear, padding, custom vs prefabricated inserts, activity level, and consistency in home treatment regimens for optimal success were answered to their verbally confirmed satisfaction.?Shoe Gear Counseling:?SHOE Rx - The patient was counseled in great detail on their muscoloskeletal foot and toe deformities which coincided with the dermatological presentations visualized on exam. We discussed how their deformities put the integrity of their feet at risk for potential pedal complications which makes the accomidative diabetic shoes and cutomizable inserts medically necessary. We discussed the different shoe and insert treatment types and options, as well as the important advantages for adhering to regularly wearing these accomidative devices daily. The patient was made aware of the fact that a failure to abide by these recommedations may be deleterious to their foot health as they are able to prevent many pedal complications such as skin irritation, skin ulceration, infection, and even loss of toe/foot/leg/or life. Time was also spent with the patient dispensing and discussing proper diabetic footcare techniques including daily skin moisturization, daily foot inspection for any interruption in skin integrity including open lesions, or sign of infection such as redness/malodor/drainage/swelling. Also discussed and recommended were procedures regarding daily shoe inspection for the presence of internal foreign bodies as well as any visualized irregular shoe or insert wear. Patient questions re: shoes, inserts, and self foot inspections were answered to their satisfaction as the patient verbally confirmed a full understanding of the above information, Patient DEFERS Extra Depth Orthopedic pressure-accommodative shoes.?Tinea Pedis:?Given recent successful results to treatment, The patient is to cont the rx cream as directed.? ??Screening/Special Tests:?Fall Risk?Screening:?No falls in the past year ?FALLS: Screening for Future Fall Risk?Have you had any falls with injury in the past year??No * Follow Up:?1 Year * Images: * Sign off status: Completed true * Provider:?Phyllis Cast DPM Date:?10/2024 Generated for Ly thurman/Shirley/Leila on:?11/09/2024 09:09 AM EDT History and Physical Notes * HPI (History of Present Illness) Category Sub-Category Detail Notes Category Not es Toe pain Location: B/L feet Duration: several years Course: worse Aggravated by: shoes, any pressure Treatments: change in shoes Skin problems Nature: dryness scaling redness Location: B/L Course: improved Treatments: medication ( AM Lact in ), Medication (Ciclopirox Olamine 0.77 Cream) At Risk footcare Pt States Last PCP Visit: Date: 4 Examination Category Sub-Category Detail Notes Category Not es Neurological SENSORY: Neurological exa m reveals intact sensorium, pain sensation normal, vibration sensation intact, pinprick sensation is normal in the lower extremities, 5.07 monofilament test performed at plantar aspects of 5 varied sites per foot shows sensation, normal, B/L, Pt denies, anesthesia, burning, paresthesia, tingling, B/L Dermatologic SKIN FINDINGS: Skin shows appro ximately 50 percent LESS, sign(s) of, erythema, scaling, in a moccasin fashion, no fissure(s) present, B/L, The interspaces are clear, B/L Orthopedic FOOTWEAR EVALUATION: good condit ion, Non-Diabetic with no OT DIGITAL DEFORMITIES: Digital contracture , PIPJ, 2-5 B/L, incompl-reducable to push-up test, no over, nor underlapping, Reveals swelling/redness/enlargement of PIPJs, with evidence of shoe producing skin irritation , Digital contracture, PIPJ, 2-5 B/L, incompl-reducible to push- up test, no over, nor underlapping, there is evidence of shoe producing skin irritation MUSCLE STRENGTH: 5/5 all groups in a symmetrical fashion , B/L General Examination GENERAL APPEARANCE: Reveals a pleasant, alert, well nourished, well developed, well hydrated individual, who demonstrates proper attention to hygene/body habitus, and is in no acute distress FOOT EXAM: Lower Extremity Neurological Exa m performed:: Yes Visual exam of foot performed:: Yes Date: 09/01/2024 ORIENTED: person, place, and t serge Footwear Evaluation Footwear Evaluation performe d:: Yes Ophthalmology Referral DIABETES EYE EXAM Procedure Perform ed:: Yes ?Date of Exam Performed: 08/29/2023 Findings of Diabetic Eye Exam:: no retin opathy Vascular DP PULSES (B): 3/4, B/L PT PULSES (B): 3/4, B/L CAPILLARY FILL TIME: immediate, all digi ts, B/L TEMPERTURE GRADIENT (C): normal, warm to cool, proximal to distal, B/L, B/L TROPHIC CONDITION-TEXTURE/ELASTICITY/TURGOR/HAIR GROWTH (B): normal, B/L EDEMA (C): absent, B/L PIGMENTATION: normal, B/L
--- OUTSIDE RECORDS SUMMARY | 2024-11-09 09:09 | XMS_ITS | Patient Health Record ---
Author Organization [facility] [place] Address [address] [place] [address] Care Team Providers Care Warehouse Handler Name Role Phone Jalen MCGUIRE, Jesi Klein Primary Care Provider Un available Phyllis Cast Unavailable [phone] Allergies No Known Allergies Results Component Value Reference Range Notes HEMOGLOBIN A1C (GLYCOHEMOGLO BIN) Reviewed date:09/01/2024 08:58:47 AM Interpretation: Performing Lab: Notes/Report: HEMOGLOBIN A1C % (HH) 7.3 Reason For Referral Diagnosis 1 Other hammer toe(s) (acquired), right foot (M20.41) Diagnosis 2 Other hammer toe(s) (acquired), left foot (M20.42) Diagnosis 3 Type 2 diabetes luma itus without complication, without long-term current use of insulin (E11.9) Diagnosis 4 Tinea unguium (B35.1 ) Diagnosis 5 Pain in toe of right foot (M79.674) Diagnosis 6 Pain in toe of left foot (M79.675) Diagnosis 7 Xerosis cutis (L85.3 ) Diagnosis 8 Tinea pedis of both feet (B35.3) Referring Provider First Name Jesi Kendrick Referring Provider Last Name Jalen Referring Provider Speciality Internal M edicine Referred Organization [facility] Referred Provider Phyllis Cast Referred Address [address] [facility],[place], [place],[address], Referred Provider Specialty Podiatry Referral Priority Routine Medications Medication SIG (Take, Route, Frequency, Duration) Notes Start Date End Date Status Multivitamin - as directed Orally Active [place] 3-6-9 Fatty Acids - as directed Orally Active Vitamin D3 Active Calcium Carbonate-Vitamin D3 Unknown Glucosamine Chondroitin Adv Active Ammonium Lactate 12 % 1 application to a ffected area Externally to feet Twice a day for 30 days Active [id number] E Acti ve glyBURIDE 5 MG 1 tablet with breakf ast or the first main meal of the day Orally Once a day for 30 day(s) Active Ciclopirox Olamine 0.77 % 1 application to affected area Externally Twice a day to effected areas on feet for 30 days Active Lisinopril 10 MG 1 tablet Orally Once a day for 30 day(s) Active metFORMIN HCl 1000 MG 1 tablet with a me al Orally Once a day for 30 day(s) Active Pioglitazone HCl 30 MG 1 tablet Orally O nce a day for 30 day(s) Active Atorvastatin Calcium 40 MG 1 tablet Oral ly Once a day for 30 day(s) Active Immunizations Vaccine Route Administration Date Status [...] Problem Acquired hammer toe of right foot (6911631937206126 ) Other hammer toe(s) (acquired), right foot (M20.41) Active confirmed Problem Acquired hammer toe of left foot (0444584839324836 ) Other hammer toe(s) (acquired), left foot (M20.42) Active confirmed Problem Type II diabetes mellitus without complication (865466126) Diabetes (E11.9) Active confirmed Problem [id number] Type 2 diabetes mellitus without complication, without long-term current use of insulin (E11.9) Active confirmed Vital Signs Blood pressure diastolic 72 mm Hg 09/01/2024 Height 6ft in 09/01/2024 Blood pressure systolic 117 mm Hg 09/01/2024 Weight 184 lbs 09/01/2024 BMI 24.95 kg/m2 09/01/2024 Encounters Encounter Location Date Provider Diagnosis [facility] [address] [place] [address] 09/01/2024 Phyllis Cast Type 2 diabetes mellitus [...] foot (ICD-10 - M20.42) Plan Of Treatment Next Appt Details Provider Name:Phyllis bhakta, 08/31/2025 09:00:00 AM, [address] [place] [address], [place], [address], Insurance Providers Payer Name Payer Address Payer Phone Subscriber Number Group Number Insured Name Patient Relationship to Insured Coverage Start Date Coverage End Date [employer] 65 Medicare Preferred [address] [place] [address] [phone] [id number] Ken Justice Self - patient is the insured Medical (General) History Medical History History ICD Code Hypertension Kidney stones Dyslipidemia Arthritis Cholesterol type II diabetes Measles Chicken pox Surgical History Surgery Date(Month/Year)
--- OUTSIDE RECORDS SUMMARY | 2024-11-09 09:09 | XMS_ITS | Encounter Summary ---
Author Organization [facility] Address [address] [place] [address] Care Team Providers Care Manager System Name Role Phone Bonnie Whytemo ArianaJoey Primary Care Provider Unavailab le Reason for Visit * Reason Onset Date Comments TEST RESULTS 03/19/2016 Encounter Details Date Type Department Care Team Description 03/19/2016 Telephone Radiology - [place] [address] [place] [id number] Jay Dolan MD TEST RESULTS Social History Tobacco Use Types Packs/Day Years Used Date Smoking Tobacco: Never Assessed Sex Assigned at Date Recorded Not on file documented as of this encounter Miscellaneous Notes * Telephone Encounter - Amina Walker L.P.N. - 03/19/2016 3:12 PM EDT LMOM, notifying pt of US results, per Dr. Dolan. * Telephone Encounter - Christin Liu - 03/19/2016 10:30 AM EDT Inform patient: ANY URGENT OR ABNORMAL RESULTS WIILL RESULT IN A CALL BACK TO THE PATIENT NATY. Type of test: :ultrasound/lab work Date test was performed: 03/15/16-03/08/16 Where was the test performed: [facility] Who ordered this test?: Dr Dolan Is the doctor here today?: NO Can the message wait until the doctor returns?: NO IF PATIENT'S PCP IS NOT IN INSTRUCT PATIENT THAT THEY WILL RECEIVE A CALL BACK WHEN THE PCP IS IN THE OFFICE NEXT. documented in this encounter Plan of Treatment Not on file documented as of this encounter Visit Diagnoses Not on filedocumented in this encounter Care Teams Manager System Relationship Specialty Start Date End Date Adrian Whyte PCP - General Internal Medicine 11/10/15 documented as of this encounter
--- OUTSIDE RECORDS SUMMARY | 2024-11-09 09:09 | XMS_ITS | Encounter Summary ---
Author Organization [facility] Address [address] [place] [address] Care Team Providers Care Lye Boiler Name Role Phone Jesi Rao MD Primary Care Provider Reason for Visit * Reason Onset Date Comments special procedure 10/27/2024 Encounter Details Date Type Department Care Team (Late st Contact Info) Description 10/27/2024 Telephone Gastroenterology - [address] [phone] Chau Mccrary MD [address] [facility] [address] [place] [address] special procedure Social History Tobacco Use Types Packs/Day Years Used Date Smoking Tobacco: Never Assessed Sex and Gender Information Value Date Recorded Sex Assigned at Not on file Legal Sex Male 4:14 PM EST Gender Identity Not on file Sexual Orientation Not on file documented as of this encounter Progress Notes * Christel Rogers - 11/04/2024 11:38 AM EDT PT SCHEDULED * Sharon Cortez MA - 11/04/2024 10:46 AM EDT 3rd attempt to schedule an appointment patient left message to call back and letter sent * Christel Rogers - 11/02/2024 9:42 AM EDT 2nd attempt to schedule an appointment patient left message to call back * Amanda Ko MA - 10/30/2024 9:25 AM EDT 1st attempt to schedule an appointment patient left message to call back * Roselyn Ruelas - 10/29/2024 10:23 AM EDT Pt is calling to schedule colonoscopy, please cb. * Amanda Ko MA - 10/28/2024 3:00 PM EDT 1st attempt to schedule an appointment patient left message to call back * Amanda Milan - 10/28/2024 9:35 AM EDT Patient returning call to schedule screening * Amanda Ko MA - 10/27/2024 1:37 PM EDT 1st attempt to schedule an appointment patient left message to call back DR. ARCE-SCREENING * Julia Roberson - 10/27/2024 12:33 PM EDT Endo was speaking with the pt and they would like to schedule [place] colon for December. Referralis in media. Ken Justice 52 would like to know if he can get scheduled for around December, on a Saturday, just not December 30. (I just spoke with his Guerline Justice [birth year]) and they were asking about his colonoscopy documented in this encounter Plan of Treatment Upcoming Encounters Date Type Department Care Team (Late st Contact Info) Description 01/13/2025 9:30 AM EDT Appointment [facility] [address] [place] [phone] Damian Arce MD [address] [facility] [address] [place] [address] documented as of this encounter Visit Diagnoses Not on filedocumented in this encounter Care Teams Lye Boiler Relationship Specialty Start Date End Date Jesi Rao MD [address] [place] [address] PCP - General Internal Medicine 08/28/24 documented as of this encounter
--- OUTSIDE RECORDS SUMMARY | 2024-11-09 09:09 | XMS_ITS | Encounter Summary ---
Author Organization [facility] Address [address] [place] [address] Care Team Providers Care Clinical Informatics Physician Name Role Phone Adrian Whyte Primary Care Provider Unavailab le Encounter Details Date Type Department Care Team Description 02/23/2013 [facility] Medical Records [address] [place] [address] [address] Dunlap Social History Tobacco Use Types Packs/Day Years Used Date Smoking Tobacco: Never Assessed Sex Assigned at Date Recorded Not on file documented as of this encounter Plan of Treatment Not on file documented as of this encounter Visit Diagnoses Not on filedocumented in this encounter Care Teams Clinical Informatics Physician Relationship Specialty Start Date End Date Adrian Whyte PCP - General Internal Medicine 11/10/15 documented as of this encounter
[2024-11-09 11:15] LABS: Estimated Average Glucose 154 mg/dL; Hemoglobin A1C 198.4364 umol/L; Total Hemoglobin (HGBA1C) 3720.7544 umol/L
[2024-11-09 11:26] LABS: Alanine Aminotransferase 30 U/L (0-40); Anion Gap 13 (12-20); Aspartate Amino Transferase 30 U/L (5-37); Blood Urea Nitrogen 23 mg/dL (9-16); Calcium 10.2 mg/dL (8.4-10.2); Carbon Dioxide 24 mmol/L (22-29); Chloride 107 mmol/L (96-108); Cholesterol 124 mg/dL (<200); Estimated Glomerular Filt Rate > 60; Glucose Fasting 132 mg/dL (60-99); HDL Cholesterol 52 mg/dL (>40); LDL Cholesterol Calculated 55 mg/dL (<100); Sodium 139 mmol/L (135-145); Triglycerides 85 mg/dL (<150)
[2024-11-09 11:43] LABS: Microalbum/Creatinine Ratio Ur 6.8 ug/mg cr (<30)
[2024-11-09 11:46] LABS: Vitamin D 25-OH Total 105.7 ng/mL (>30)
== END 2024-11-09 08:39 | disposition home or self-care (01) ==
LOC: HO.HMGCLDS 08:38
PROVIDERS: PCP Internal Medicine; Visit Provider Internal Medicine
DX: E11.65 Type 2 diabetes mellitus with hyperglycemia (principal)
CPT/HCPCS: 36415; 80048; 80061; 82043; 82306; 82570; 83036; 84450; 84460

== ENCOUNTER 2024-11-11 09:21 | Outpatient (AMB) | payer BC, SELFPAY ==
[2024-11-11 09:28] VITALS: BP 120/60; PULSE 81; RESP 15; TEMP 36.7; O2SAT 99; BMI 25.1
--- NOTE | 2024-11-11 09:28 | A.OFFPC_ITS ---
Vital Signs 11/11/24 09:28 Height 6 ft Weight 185 lb BMI 25.1 BP 120/60 Blood Pressure Location Lt brachial Position Sitting Respiration 15 Pulse 81 Pulse Source Pulse Oximeter Temp 98.0 F Temp Source Oral Pulse Oximetry (%) 99 Oxygen Delivery Method Room Air Intake Visit Reasons: 4 month follow up Intake Note: Pt is here today for his 4mo. f/u Allergies No Known Allergies Allergy (Verified 11/16/24 01:47) Medication List - Last Reconciled 11/11/24 by Jesi Rao MD antiarthritic combination no.2 (glucosamine-chondroitin) mg PO atorvastatin 40 mg PO DAILY calcium carbonate-vitamin D3 600 mg-5 mcg (200 unit) (Calcium 600 + D(3)) caps PO cholecalciferol (vitamin D3) 125 mcg PO .every other day coenzyme K37-mqopiyc E 100-100 mg-unit caps PO Jardiance (empagliflozin) 10 mg PO QAM NS lancets (Acti-Simon Lancets) Check blood sugar once daily before meal lisinopril 10 mg PO DAILY metformin 1,000 mg PO BID multivitamin 1 tab PO DAILY omega-3 acid ethyl esters 1 cap PO DAILY OneTouch Ultra Test (blood sugar diagnostic) Test blood sugar once a day NS pioglitazone 30 mg PO DAILY Tobacco use date assessed: 11/11/24 Fall risk assessment: No Falls in past year Last assessed Fall Risk: 11/11/24 Dental Screening Dental Screen Date: 11/11/24 Did you have a dental visit in the last 12 months?: Yes Did you have a dental problem in the last 6 months where you did not have access to dental care?: No Was dental information given to patient?: Patient has dentist HPI 4 month follow up HPI Details 73-year-old male with history of diabete s mellitus, hypertension dyslipidemia, here today for his follow-up. He has been compliant with taking his medications and has been exercising regularly, has changed his eating habits and has been cutting back on portions and avoiding a lot of processed foods and does not drink soda. Has lost a noticeable amount of weight, feels better, has more energy. Latest fasting labs showed good control diabetes mellitus with hemoglobin A1c at 7%, no microalbuminuria present, fasting lipids are within normal limits, and vitamin-D is in high normal range. [facility] Medical History Diabetes mellitus with hyperglycemia, without long-term current use of insulin History of kidney stones Type 2 diabetes mellitus without complication, with no history of insulin use Essential hypertension Dyslipidemia Surgical History H/O colonoscopy Family History Father Aneurysm Mother No problems noted. Social History Housing: Condominium Alcohol intake: never Patient Tobacco Use Status: Never used Tobacco e-Cigarette/Vaping Use: Never Used service: No Current occupational status: retired Cognitive needs: No Hearing needs: No Vision needs: Yes Questionnaire PHQ-9 Over the last 2 weeks, how often have you been bothered by any of the following problems? 1. Little interest or pleasure in doing things: not at all 2. Feeling down, depressed, or hopeless: not at all 3. Trouble falling or staying asleep, or sleeping too much: not at all 4. Feeling tired or having little energy: not at all 5. Poor appetite or overeating: not at all 6. Feeling bad about yourself - or that you are a failure or have let yourself or your family down: not at all 7. Trouble concentrating on things, such as reading the newspaper or watching television: not at all 8. Moving or speaking so slowly that other people could have noticed. Or the opposite - being so fidgety or restless that you have been moving around a lot more than usual: not at all 9. Thoughts that you would be better off or of hurting yourself in some way: not at all Total score: 0 Depression Screening Interpretation: Negative Depression Screening Done: Yes 62824 - PHQ-9 Billing: Yes Source: Developed by Drs. Bryan Vieyra, Sandra Joy, Jorge Llamas and colleagues, with an educational calin from [employer]. Thrive Questionnaire Date Thrive assessed: 11/11/24 I am a: Patient What is your living situation today?: I have a steady place to live Within the past 12 months, did the food you bought not last and you didn't have the money to get more?: Never true Within the past 12 months, did you worry whether your food would run out before you got money to buy more?: Never true Do you have trouble paying for medicines?: No Do you have trouble getting transportation to medical appointments?: No Do you have trouble paying your heating and electricity bill?: No Do you have trouble taking care of your child, family member or friend?: No Do you have trouble with day-to-day activities such as bathing, preparing meals, shopping, managing finances, etc.?: No Are you currently unemployed and looking for a job?: No Are you interested in more education?: No Please select the resources that you would like help with: None Currently or been in a relationship where the following occur: No concerns reported THRIVE Score: 0 AUDIT C Alcohol Use Questionnaire (AUDIT-C) 1. How often do you have a drink containing alcohol?: Never 2. How many drinks containing alcohol do you have on a typical day when you are drinking?: 1 or 2 3. How often do you have six or more drinks on one occasion?: Never Total Score: 0 SNEHA-7 AMB Questionnaire SNEHA-7 Date SNEHA - 7 assessed: 11/11/24 Feeling nervous, anxious, or on edge: 0 = Not at all Not being able to stop or control worryin = Not at all Worrying too much about different things: 0 = Not at all Trouble relaxin = Not at all Being so restless that it is hard to sit still: 0 = Not at all Becoming easily annoyed or irritable: 0 = Not at all Feeling afraid as if something awful might happen: 0 = Not at all Total SNEHA-7 score (0-4 normal; 5-9 mild; 10-14 moderate; 15-21 severe): 0 Source: Developed by Drs. Bryan Vieyra, Sandra Joy, Jorge Llamas and colleagues, with an educational calin from [employer]. SNEHA-7 Assessment Billing SNEHA-7 Assessment Tool: SNEHA-7 Assessment 05686 Review of Systems Const Denies body aches, Denies fatigue, Denies fever(s), Denies headache(s) and Denies weakness Eyes Details: sees Dr Hulseberg ENT Reports Normal hearing present and Denies headache(s) Card Denies chest pain, Denies lightheadedness, Denies palpitations and Denies dyspnea Resp Denies chest congestion, Denies cough and Denies dyspnea GI Denies abdominal pain, Denies change in bowel habits and Denies heartburn Denies dysuria, Denies urinary frequency and Denies urinary urgency Musc Denies back pain, Denies myalgias, Denies arthralgias, Denies muscle weakness and Denies stiffness Skin/Breast Details: Currently gets diabetes foot exam with Dr. Cast Denies lesions and Denies rash Neuro Reports Normal hearing present, Denies headache(s), Denies Sensory deficit (Neuro) and Denies weakness Psych Reports no additional complaints Endo Denies fatigue, Denies polydipsia, Denies polyuria and Denies palpitations Johann/Lymph Reports no additional complaints Aller/Immun Reports no additional complaints Physical exam (Primary Care) Vital Signs: Last Vital Signs Temp 98.0 F 11/11/24 09:28 Pulse 81 11/11/24 09:28 Resp 15 11/11/24 09:28 BP 120/60 11/11/24 09:28 Pulse Ox 99 11/11/24 09:28 Oxygen Delivery Method Room Air 11/11/24 09:28 BMI result Body Mass Index 25.1 Tobacco/Smoking Status: Tobacco use Status Tobacco use date assessed 11/11/24 11/11/24 09:32 Patient Tobacco Use Status Never used Tobacco 11/11/24 09:32 e-Cigarette/Vaping Use Never Used 11/11/24 09:32 PHQ-9: PHQ-9 Score PHQ-9: Total score 0 11/11/24 09:48 Depression Screening Interpretation: Negative Thrive Assessment: Date of Thrive Assessment Date Thrive assessed 11/11/24 11/11/24 09:32 Currently or been in a relationship where the following occur: No concerns reported Const General: no acute distress and alert Orientation/consciousness: patient oriented x3 HENMT Head: Yes normocephalic Ears: hearing grossly normal bilaterally and external ears normal General nose exam: Normal external nose present Face and sinus: Yes face symmetric Mouth: Normal oral and palatal mucosa present, oropharynx normal and moist mucous membranes Eyes General: appearance normal, both eyes and all related structures Neck Neck: Yes full ROM and Yes no lymphadenopathy Thyroid: Thyroid normal Resp Effort & Inspection: normal respiratory effort and able to speak in complete sentences Auscultation: clear to auscultation bilaterally Cardio Jugular venous distension: no JVD Rate: regular rate Rhythm: regular rhythm Heart sounds: S1 normal heart sound present and S2 normal heart sound present GI Inspection: Yes normal to inspection Palpation (GI): Soft to palpation Auscultation: normal bowel sounds Back/Spine/Pelvis Back: No back tenderness Skin Other: sees Dr Wells yearly General skin exam: no rashes or lesions noted Neuro General: patient oriented x3, gait normal, moves all extremities, no focal motor deficits, CN's II-XI intact bilaterally and normal sensation to monofilament Cranial nerves: Yes Normal hearing present Cognition (Neuro): normal cognition Gait exam (Neuro): Normal gait present Motor exam (neuro): 5/5 motor strength present throughout Sensory Exam: No Sensory deficit (Neuro) Extrem General: Yes normal to inspection, Yes full ROM, Yes no pedal edema and Yes normal gait Psych Appearance: grossly normal and well kempt Mental Status: mental status grossly normal Speech and movement: Normal speech and movement present Thought process: Normal thought process present Thought content: Normal thought content present Results Reviewed Results Reviewed: Laboratory Tests 11/09/24 11/09/24 08:47 08:55 Estimat Average Glucose 154 Hemoglobin A1c % 7.0 H Urine Creatinine 102.70 Urine Microalbumin 7.0 Microalb/Creat Ratio 6.8 Name: Ken Justice Age/Sex: 74/M : 1950 Unit#: [id number] Attend Dr: Jesi Rao MD Re11/09/24 Status: DEP REF [facility] Disch: SPEC : [id number] DANNY: 11/09/24 STATUS: COMP REQ : [id number] RECD: 11/09/[address]: Jesi Rao MD COMP: 11/09/24 ENTERED: 11/09/[address]: ORDERED: Met Prof Fast, AST, ALT, Lipid Panel, Vitamin D 25-OH Test Result Flag Reference Sodium 139 135-145 mmol/L Potassium 5.0 3.3-5.1 mmol/L CL 107 96-108 mmol/L CO2 24 22-29 mmol/L Gap 13 12-20 BUN 23 H 9-16 mg/dL Creat 0.80 0.5-1.4 mg/dL eGFR > 60 Chronic Kidney Disease: Estimated GFR < 60 mL/min/1.73m2 Severe Kidney Disease: Estimated GFR < 15 mL/min/1.73m2 FBS 132 H 60-99 mg/dL A fasting glucose of 126 mg/dl or greater on more than one occasion is considered diagnostic of diabetes. CA 10.2 8.4-10.2 mg/dL AST (GOT) 30 5-37 U/L ALT (GPT) 30 0-40 U/L Triglyceride 85 <150 mg/dL Desirable Triglyceride: less than 150 mg/dL Borderline High Triglyceride 150-199 mg/dL High Triglyceride: 200-499 mg/dL Very High Triglyceride: greater than or equal to 5OO mg/dL Cholesterol 124 <200 mg/dL Desirable Cholesterol: less than 200 mg/dL Borderline High Cholesterol: 200-239 mg/dL High Cholesterol: greater than 239 mg/dL LDL Calculated 55 <100 mg/dL Desirable LDL: less than 100 mg/dL Near Optimal/Above Optimal LDL: 110-129 mg/dL Borderline High LDL: 130-159 mg/dL High LDL: 160-189 mg/dL Very High LDL: greater than or equal to 190 mg/dL HDL 52 >40 mg/dL Desirable HDL: greater than 40 mg/dL Note: This HDL assay may give artificially low results in patients with liver disease. Vitamin D 25-OH 105.7 >30 ng/mL Health Based Reference Values* < 20 ng/mL Deficient 20-30 ng/mL Insufficient > 30 ng/mL Sufficient Coding Level of Care Code Est Pt Level 4 (74856) Complex EM visit Add On G2211 Diagnoses Dyslipidemia E78.5 Essential hypertension I10 Diabetes mellitus with hyperglycemia, without long-term current use of insulin E11.65 Additional Codes PHQ-9 - 73210 - PHQ-9 Billing: Yes ([id number]) SNEHA-7 Assessment Billing - SNEHA-7 Assessment Tool: SNEHA-7 Assessment 34043 ([id number]) Assessment & Plan Assessment & Plan (1) Dyslipidemia: Code(s): E78.5 - Hyperlipidemia, unspecified Category: Medical Plan: Reviewed recent fasting lipid profile with patient with levels within normal limits . Continue Delavan 3 fatty acid supplements and atorvastatin 40 mg daily , in addition to adherence to low-cholesterol diet and regular exercise, at least 30 minutes 3 to 4 times a week. Advised patient to make healthy food choices, eat more fruits, vegetables, whole grains, wild caught fish and low- fat dairy. Limit amount of meat and fried or fatty food products, as well as processed foods and fast foods. Follow-up scheduled with repeat fasting lipid panel in 5 months. (2) Essential hypertension: Code(s): I10 - Essential (primary) hypertension Category: Medical Plan: Blood pressure at goal of less than 130/80. Continue with lisinopril 10 mg daily. Reinforced importance of following a low sodium diet, getting regular exercise, and lowering stress levels. (3) Diabetes mellitus with hyperglycemia, without long-term current use of insulin: Code(s): E11.65 - Type 2 diabetes mellitus with hyperglycemia Category: Medical Plan: Recent lab results reviewed with patient, with sugar and hemoglobin A1c stable and at goal . Continue to take pioglitazone, metformin, and Jardiance at the same dose. continue to check fasting blood sugar at home, maintain log and bring to next appointment for review. Reinforced diabetic diet and regular exercise with patient. Counseled regarding importance of yearly diabetes retinopathy screening. Patient advised to inspect feet daily, for any signs of injury, callus or infection. Compliance with diet and regular exercise again stressed. Blood pressure goal is less than 130/80, goal LDL is less than 100 and goal hemoglobin A1c is less than 7% follow-up appointment made in-5--months, after fasting labs done. Orders: Orders Basic Metabolic Panel Fasting 03/29/25 E11.65 - Type 2 diabetes mellitus with hyperglycemia, E78.5 - Hyperlipidemia, unspecified, I10 - Essential (primary) hypertension, Z12.5 - Encounter for screening for malignant neoplasm of prostate Aspartate Amino Transferase 03/29/25 E11.65 - Type 2 diabetes mellitus with hyperglycemia, E78.5 - Hyperlipidemia, unspecified, I10 - Essential (primary) hypertension, Z12.5 - Encounter for screening for malignant neoplasm of prostate Hemoglobin A1c 03/29/25 E11.65 - Type 2 diabetes mellitus with hyperglycemia, E78.5 - Hyperlipidemia, unspecified, I10 - Essential (primary) hypertension, Z12.5 - Encounter for screening for malignant neoplasm of prostate PSA,Total (Free>4and<10) 03/29/25 E11.65 - Type 2 diabetes mellitus with hyperglycemia, E78.5 - Hyperlipidemia, unspecified, I10 - Essential (primary) hypertension, Z12.5 - Encounter for screening for malignant neoplasm of prostate Vitamin D 25-OH Total 03/29/25 E11.65 - Type 2 diabetes mellitus with hyperglycemia, E78.5 - Hyperlipidemia, unspecified, I10 - Essential (primary) hypertension, Z12.5 - Encounter for screening for malignant neoplasm of prostate Lipid Panel 03/29/25 E11.65 - Type 2 diabetes mellitus with hyperglycemia, E78.5 - Hyperlipidemia, unspecified, I10 - Essential (primary) hypertension, Z12.5 - Encounter for screening for malignant neoplasm of prostate Complete Blood Count Auto Diff 03/29/25 E11.65 - Type 2 diabetes mellitus with hyperglycemia, E78.5 - Hyperlipidemia, unspecified, I10 - Essential (primary) hypertension, Z12.5 - Encounter for screening for malignant neoplasm of prostate Alanine Aminotransferase 03/29/25 E11.65 - Type 2 diabetes mellitus with hyperglycemia, E78.5 - Hyperlipidemia, unspecified, I10 - Essential (primary) hypertension, Z12.5 - Encounter for screening for malignant neoplasm of prostate
--- OUTSIDE RECORDS SUMMARY | 2024-11-11 10:17 | XMS_ITS | Clinical Summary ---
Author Organization [facility] [address] [facility] Address [address] [place] [address] Phone Care Team Providers Care Custodian Athletic Equipment Name Role Phone Jesi Rao MD Primary [...] Date Diabetes mellitus type 2, un complicated ([facility] V24, [facility] V28) 11/22/2015 Gallstones 11/22/2015 Overview (08/27/2024): Seen on CT 02/07 Hyperlipidemia 11/22/2015 Kidney stone 11/22/2015 Overview (08/27/2024): Right ureteral stone 02/07; laser stone ablation Encounters Date Type Department Care Team Description 10/27/2024 Telephone Gastroenterology - 299 [facility] [address] [address] Chau Mccrary MD special procedure 08/31/2024 Telephone Gastroenterology - [address] [phone] Damian Arce MD from Last [...] Info) Description 01/13/2025 9:30 AM EDT Appointment [facility] [address] [place] [phone] Damian Arce MD [address] [address] Health Maintenance Due Date Last [...] [place]OSS - [place] MEDICARE AD[place]ANT[place] Care Teams Custodian Athletic Equipment Relationship Specialty Start Date End Date Jesi Rao MD [address] [place] [address] PCP - General Internal Medicine 08/28/24
--- OUTSIDE RECORDS SUMMARY | 2024-11-11 10:17 | XMS_ITS ---
Author Organization [facility] Address [address] [facility] [place] [address] Care Team Providers Care Gas Engine Performance Engineer Name Role Phone Jalen MCGUIRE, Jesi Klein Primary Care Provider Un available Phyllis Cast Unavailable [phone] Allergies No Known Allergies REASON FOR VISIT [...] on feet for 30 days 08/30/2023 Active UwQ69-Ptadpza E Acti ve Multivitamin - as directed Orally Active Mayview 3-6-9 Fatty Acids - as directed Orally [...] 08/30/2023 Encounters Encounter Location Date Provider Diagnosis [facility] [place] [address] [place] [address] 08/30/2023 Phyllis Cast Type 2 diabetes mellitus [...] Reason: Provider Name:Phyllis bhakta, 08/31/2025 09:00:00 AM, [address] [place] [address], [phone], Progress Notes * Skyler JUSTICEcheyenne GDOB:[birth year] (73 yo M)Acc No.[id number]:08/30/2023 Progress Note Patient:?Ken Justice Provider:?Phyllis Cast DPM :1950???Age:73 Y???Sex:Male Kenn e:08/30/2023 Address:[address] [place], [place] [id number] Pcp:Lonnie Lamas Subjective: * Chief Complaints: * [...] Orally Multivitamin - Liquid as directed Orally KiM81-Njltaql E Ammonium Lactate 12 % Cream 1 [...] Tablet 1 tablet Orally Once a dayTaking Mayview 3-6-9 Fatty Acids - Capsule as directed Orally Taking Multivitamin - Liquid as directed Orally Taking TkE32-Olqpzer E Taking Ammonium Lactate 12 % Cream [...] Cast DPM Date:?08/2023 Generated for Ly thurman/Faxing/eTransmitting on:?11/11/2024 10:17 AM EDT History and Physical Notes * [...]
--- OUTSIDE RECORDS SUMMARY | 2024-11-11 10:17 | XMS_ITS | Patient Health Record ---
Author Organization [facility] [place] Address [address] [place] [address] Care Team Providers Care Color Coater Name Role Phone Jalen MCGUIRE, Jesi Klein Primary Care Provider Un available Phyllis Cast Unavailable [phone] Allergies No Known Allergies Results Component Value [...] Provider Speciality Internal M edicine Referred Organization [facility] [place] Referred Provider Phyllis Cast Referred Address [address] [facility],[place], [place],[address], Referred Provider Specialty Podiatry Referral Priority Routine Medications Medication SIG (Take, Route, Frequency, Duration) Notes Start Date End Date Status Multivitamin - as directed Orally Active [place] 3-6-9 Fatty Acids - as directed Orally Active Vitamin D3 Active Calcium Carbonate-Vitamin D3 Unknown Glucosamine Chondroitin Adv Active Ammonium Lactate 12 % 1 application to a ffected area Externally to feet Twice a day for 30 days Active XpQ24-Ohlrjkt E Acti ve glyBURIDE 5 MG 1 [...] Problem Acquired hammer toe of right foot (2528939158828524 ) Other hammer toe(s) (acquired), right foot (M20.41) Active confirmed Problem Acquired hammer toe of left foot (7306837616856378 ) Other hammer toe(s) (acquired), left foot (M20.42) Active confirmed Problem Type II diabetes mellitus without complication (114017202) Diabetes (E11.9) Active confirmed Problem [id number] Type 2 diabetes mellitus without complication, without long-term current use of insulin (E11.9) Active confirmed Vital Signs Blood pressure diastolic 72 mm Hg 09/01/2024 Height 6ft in 09/01/2024 Blood pressure systolic 117 mm Hg 09/01/2024 Weight 184 lbs 09/01/2024 BMI 24.95 kg/m2 09/01/2024 Encounters Encounter Location Date Provider Diagnosis [facility] [address] [place] [address] 09/01/2024 Phyllis Cast Type 2 diabetes mellitus [...] Details Provider Name:Phyllis bhakta, 08/31/2025 09:00:00 AM, [address] [place] [address], [place], [address], Insurance Providers Payer Name Payer Address Payer Phone Subscriber Number Group Number Insured Name Patient Relationship to Insured Coverage Start Date Coverage End Date BlueCare 65 Medicare Preferred [address] [place] [address] [id number] Ken Justice Self - patient is the insured Medical (General) History Medical History History ICD Code Hypertension Kidney stones Dyslipidemia Arthritis Cholesterol type II diabetes Measles Chicken pox Surgical History Surgery Date(Month/Year)
--- OUTSIDE RECORDS SUMMARY | 2024-11-11 10:17 | XMS_ITS ---
Author Organization [facility] Address [address] [place] [address] Care Team Providers Care Consumer Product Advisor Name Role Phone Jalen MCGUIRE, Jesi Klein Primary Care Provider Un available Phyllis Cast Unavailable [phone] Allergies No Known Allergies REASON FOR VISIT At Risk Footcare, Painful Nail(s) aggrevated by shoes and causing difficulty standing/walking., Skin problem(s), Toe Irritation Medications Medication SIG (Take, Route, Frequency, Duration) Notes Start Date End Date Status Multivitamin - as directed Orally Active [place] 3-6-9 Fatty Acids - as directed Orally Active Calcium Carbonate-Vitamin D3 Unknown Ammonium Lactate 12 % 1 application to a ffected area Externally to feet Twice a day for 30 days Active QmT20-Umyjbjg E Acti ve glyBURIDE 5 MG 1 [...] 025 Encounters Encounter Location Date Provider Diagnosis [facility] [place] [address] [place] [address] 09/01/2024 Phyllis Cast Type 2 diabetes mellitus [...] Reason: Provider Name:Phyllis bhakta, 08/31/2025 09:00:00 AM, [address] [place] [address], [phone], Progress Notes * Ken JUSTICE GDOB:[birth year] (74 yo M)Acc No.[id number]:09/01/2024 Progress Note Patient:?Ken JUSTICE G Provider:?Phyllis Cast DPM :1950???Age:74 Y???Sex:Male Kenn e:09/01/2024 Address:[address] [place] [address] , [facility] [place] Pcp:Lonnie Lamas Subjective: * Chief Complaints: * [...] yes, walking,weights,stretching. ?Marital status: . 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 * Medications:?TakingGlucosami ne Chondroitin Adv [...] Tablet 1 tablet Orally Once a day [place] 3-6-9 Fatty Acids - Capsule as directed [...] 1 tablet Orally Once a day Taking [place] 3-6-9 Fatty Acids - Capsule as directed [...] Cast DPM Date:?10/2024 Generated for Ly thurman/Shirley/Leila on:?11/11/2024 10:17 AM EDT History and Physical [...]
--- OUTSIDE RECORDS SUMMARY | 2024-11-11 10:17 | XMS_ITS | Encounter Summary ---
Author Organization [facility] Address [address] [place] [address] Care Team Providers Care Coal Or Ore Controller Name Role Phone Adrian Whyte Primary Care Provider Unavailab le Encounter Details Date Type Department Care Team Description 03/12/2016 Release of Information Medical Records [address] [place] [id number] Abstract, Provider Social History Tobacco Use Types Packs/Day Years Used Date Smoking Tobacco: Never Assessed Sex Assigned at Date Recorded Not on file documented as of this encounter Plan of Treatment Not on file documented as of this encounter Visit Diagnoses Not on filedocumented in this encounter Care Teams Coal Or Ore Controller Relationship Specialty Start Date End Date Adrian Whyte PCP - General Internal Medicine 11/10/15 documented as of this encounter
== END 2024-11-11 10:05 | disposition home or self-care (01) ==
LOC: HO.HMCC 09:22
PROVIDERS: PCP Internal Medicine; Visit Provider Internal Medicine
DX: E78.5 Hyperlipidemia, unspecified (principal); I10 Essential (primary) hypertension; E11.65 Type 2 diabetes mellitus with hyperglycemia

== ENCOUNTER → 2024-11-11 09:21 | Outpatient (BNVA) | payer BC, SELFPAY | PROVIDERS: PCP Internal Medicine; Visit Provider Internal Medicine | DX: E78.5 Hyperlipidemia, unspecified (principal); I10 Essential (primary) hypertension; E11.65 Type 2 diabetes mellitus with hyperglycemia; Z79.84 Long term (current) use of oral hypoglycemic drugs; Z79.899 Other long term (current) drug therapy | CPT/HCPCS: 96127 ==

== ENCOUNTER 2025-04-24 08:07 | Outpatient (REF) | payer BC, SELFPAY ==
--- OUTSIDE RECORDS SUMMARY | 2025-04-24 08:09 | XMS_ITS | Clinical Summary ---
Author Organization [facility] [address] [facility] Address [address] [place] [address] Phone Care Team Providers Care Historian Dramatic Arts Name Role Phone Jesi Rao MD Primary [...] mouth 1 (one) time each day. Active alendronate-cho lecalciferol (FOSAMAX PLUS D) 70 mg- 2,800 unit [...] mouth 1 (one) time each day. Active polyethylene glycol (Golytely) 236-22.74-6.74 -5.86 gram solution Take 4L by mouth once for one dose. May substitue any PEG. Starting at 6PM the night before your procedure drink 1 8oz glasses at your own pace until you complete half of the gallon. Finish 2nd half of the gallon 5 hours before your procedure. 4000 mL 5 Active bisacodyL (DULCOLAX) 5 mg EC tablet Take 2 tablets by mouth right before beginning bowel prep. See instructions provided by the office 2 tablet 5 Active Active Problems Problem Noted Date Diagnosed Date Diabetes mellitus type 2, un complicated ([facility] V24, [facility] V28) 11/22/2015 Gallstones 11/22/2015 Overview (08/27/2024): Seen on CT 02/07 Hyperlipidemia 11/22/2015 Kidney stone 11/22/2015 Overview (08/27/2024): Right ureteral stone 02/07; laser stone ablation Surgical History Surgery Date Site/Laterality Comments COLONOSCOPY Medical History Medical History Date Comments Diabetes mellitus ([facility] V24, [facility] V28) Hyperlipidemia Hypertension History of kidney stones Social History Tobacco Use Types Packs/Day Years Used Date Smoking Tobacco: Never Smokeless Tobacco: Never Tobacco Cessation:Counseling Given: Not Answered Alcohol Use Standard Drinks/Week Comments Never 0 (1 standard drink = 0.6 oz pur e alcohol) Interpersonal Safety Answer Date Record ed Physical Abuse 01/13/2025 Verbal Abuse 01/13/2025 Sex and Gender Information Value Date Recorded Sex Assigned at Not on file Legal Sex Male 4:14 PM EST Gender Identity Not on file Sexual Orientation Not on file Obstetrics History Last Filed Vital Signs Vital Sign Reading Time Taken Comments Blood Pressure 120/65 01/13/2025 10:08 AM EDT Pulse 67 01/13/2025 10:08 AM EDT Temperature 36.1 C (97 F) 01/13/2025 9:48 AM EDT Respiratory Rate 20 01/13/2025 10:08 AM EDT Oxygen Saturation 100% 01/13/2025 10:08 AM EDT Inhaled Oxygen Concentration - - Weight 80.3 kg (177 lb) 01/13/2025 9:13 AM EDT Height 182.9 cm (6') 01/13/2025 9:13 AM EDT Body Mass Index 24.01 01/13/2025 9:13 AM EDT Plan of Treatment Health Maintenance Due Date Last Done Comments Diabetes: Annual GFR (Glomerular Filtration Rate) 1950 Diabetes: Annual Foot Exam 1961 Diabetes: Annual Retina Eye Exam 1961 RSV Immunization Adult Patients (1 - Risk 60-74 years 1-dose series) 2011 Depression Screening 07/29/2024 Cholesterol Screening (Lipid Panel) 08/27/2024 Diabetes: Annual Urine Albumin-Creatinine Ratio (uACR) 08/27/2024 Diabetes: Blood Sugar Control Test (HGBA1C) 08/27/2024 Hepatitis C Screening 08/27/2024 Medicare Annual Wellness Visit 08/27/2024 Social Influencers of Health Screening 08/27/2024 COVID-19 Vaccine ( season) 2025 06/03/2024, 05/23/2023, 05/14/2022, Additional history exists Influenza Vaccine (#1) 2025 , 05/13/2023, 04/10/2022, Additional history exists Falls Risk Assessment 01/13/2026 01/13/2025 DTaP,Tdap,and Td Vaccines (2 - Td or Tdap) 10/22/2031 10/21/2021 Colorectal Cancer Screening: Colonoscopy 01/13/2035 01/13/2025 Zoster Vaccines Completed 07/04/2020, 05/02/2020 Pneumococcal Vaccine: 50+ Years Completed 06/05/2022, 05/04/2019, 05/28/2018 HIB Vaccines Aged Out No longer eligi [...] to complete this topic RSV Immunization Patients Under 20 months Aged Out No longer eligible based on patient's age to complete this topic Varicella Vaccines Aged Out No longer eligible based on patient's age to complete this topic Procedures Procedure Name Priority Date/Time Associated Diagnosis Comments COLONOSCOPY Routine 01/13/2025 9:47 AM EDT Colon cancer screening from Last 3 Months or Most Recently Relevant to Health Maintenance Results * COLONOSCOPY Anesthesia - MAC; [facility] ENDOSCOPY (01/13/2025 9:47 AM EDT) Anatomical Region Laterality Modality Endoscopy 01/13/2025 9:23 AM EDT Impressions 01/13/2025 9:49 AM EDT - The entire examined colon is normal on direct and retroflexion views. - No specimens collected. Recommendation: - Repeat colonoscopy in 10 years for screening purposes. Narrative 01/13/2025 9:49 AM EDT [facility] Patient Name: Ken Justice Procedure Date: 01/13/2025 9:23 AM Date of : 1950 Age: 74 Room: ROOM 15 Gender: Male Note Status: Finalized Attending MD: Damian Arce MD, Procedure Date No Time: 01/13/2025 Procedure: Colonoscopy Indications: Screening for colorectal malignant neoplasm Providers: Damian Arce MD Referring MD: Damian Arce MD Medicines: Propofol per Anesthesia Complications: No immediate complications. Estimated Blood Loss: Estimated blood loss: none. Procedure: Pre-Anesthesia Assessment: - ASA Grade Assessment: II - A patient with mild systemic disease. After I obtained informed consent, the scope was passed under direct vision. Throughout the procedure, the patient's blood pressure, pulse, and oxygen saturations were monitored continuously.The Olympus Pediatric Colonosocpe was introduced through the anus and advanced to the cecum, identified by appendiceal orifice and ileocecal valve. The colonoscopy was performed without difficulty. The patient tolerated the procedure well. The quality of the bowel preparation was good. Findings: The perianal and digital rectal examinations were normal. The entire examined colon appeared normal on direct and retroflexion views. Procedure Code(s): --- Professional --- G0121, Colorectal cancer screening; colonoscopy on individual not meeting criteria for high risk Diagnosis Code(s): --- Professional --- Z12.11, Encounter for screening for malignant neoplasm of colon CPT copyright 2020 [employer]. All rights reserved. The codes documented in this report are preliminary and upon screen printing machine operator helper review may be revised to meet current compliance requirements. Damian Arce MD 01/13/2025 9:49:04 AM This report has been signed electronically.Damian Arce MD Number of Addenda: 0 Note Initiated On: 01/13/2025 9:23 AM Scope In: Scope Out: Endoscopy Department at [facility] - [address] [place] [id number] Procedure Note Damian Arce MD - 01/13/2025 [facility] Patient Name: Ken Justice Procedure Date: 01/13/2025 9:23 AM Date of : 1950 Age: 74 Room: ROOM 15 Gender: Male Note Status: Finalized Attending MD: Damian Arce MD, Procedure Date No Time: 01/13/2025 Procedure: Colonoscopy Indications: Screening for colorectal malignant neoplasm Providers: Damian Arce MD Referring MD: Damian Arce MD Medicines: Propofol per Anesthesia Complications: No immediate complications. Estimated Blood Loss: Estimated blood loss: none. Procedure: Pre-Anesthesia Assessment: - ASA Grade Assessment: II - A patient with mild systemic disease. After I obtained informed consent, the scope was passed under direct vision. Throughout theprocedure, the patient's blood pressure, pulse, and oxygen saturations were monitored continuously.The Olympus Pediatric Colonosocpe was introduced through theanus and advanced to the cecum, identified byappendiceal orifice and ileocecal valve. The colonoscopy was performed without difficulty. The patient tolerated the procedure well. The quality of the bowel preparation was good. Findings: The perianal and digital rectal examinations were normal. The entire examined colon appeared normal on direct and retroflexion views. Procedure Code(s): --- Professional --- G0121, Colorectal cancer screening; colonoscopy on individual not meeting criteria for high risk Diagnosis Code(s): --- Professional --- Z12.11, Encounter for screening for malignantneoplasm of colon CPT copyright 2020 [employer]. All rights reserved. The codes documented in this report are preliminary and upon screen printing machine operator helper reviewmay be revised to meet current compliance requirements. Damian Arce MD 01/13/2025 9:49:04 AM This report has been signed electronically.Damian Arce MD Number of Addenda: 0 Note Initiated On: 01/13/2025 9:23 AM Scope In: Scope Out: Endoscopy Department at [facility] - [address] [place] [id number] IMPRESSION: - The entire examined colon is normal on direct and retroflexion views. - No specimens collected. Recommendation: - Repeat colonoscopy in 10 years for screening purposes. Damian Arce MD GI~PROCEDURE ORDERABLES Fin al Result from Last 3 Months or Most Recently Relevant to Health Maintenance Insurance [employer] - [place] MEDICARE ADVANTAGE Care Teams Historian Dramatic Arts Relationship Specialty Start Date End Date Jesi Rao MD [address] [place] [address] PCP - General Internal Medicine 08/28/24
[2025-04-24 11:10] LABS: MANUAL DIFF FLAG NO
[2025-04-24 11:15] LABS: Hematocrit 40.9 % (42.0-52.0); Hemoglobin 13.6 g/dl (14.0-18.0); Imm Gran Abs Auto 0.02 X10*3/uL (0.00-0.03); Imm Gran Pct Auto 0.4 % (0.0-0.4); Lymphocytes Absolute Auto 0.9 X10*3/uL (1.2-4.9); Mean Corpuscular HGB Conc 33.3 g/dl (31.0-36.0); Mean Corpuscular Hemoglobin 30.6 pg (27.0-33.0); Mean Corpuscular Volume 92.1 fL (80.0-98.0); NRBC Abs Auto 0.000 X10*3/uL (0.0-0.012); NRBC Pct Auto 0.0 /100WBC (0.0-0.2); Platelet Count 223 X10*3/uL (160-400); Red Blood Count 4.44 X10*6/uL (4.60-5.80); White Blood Count 5.1 X10*3/uL (4.8-10.8)
[2025-04-24 11:33] LABS: Alanine Aminotransferase 25 U/L (0-40); Anion Gap 12 (12-20); Aspartate Amino Transferase 26 U/L (5-37); Blood Urea Nitrogen 20 mg/dL (9-16); Calcium 9.8 mg/dL (8.4-10.2); Carbon Dioxide 26 mmol/L (22-29); Chloride 107 mmol/L (96-108); Cholesterol 112 mg/dL (<200); Estimated Glomerular Filt Rate > 60; HDL Cholesterol 45 mg/dL (>40); Potassium 4.5 mmol/L (3.3-5.1); Sodium 140 mmol/L (135-145); Triglycerides 77 mg/dL (<150)
[2025-04-24 11:47] LABS: PSA,Total (Free>4and<10) 1.27 ng/mL (0.00-4.00)
== END 2025-04-24 08:08 | disposition home or self-care (01) ==
LOC: HO.HMGCLDS 08:07
PROVIDERS: PCP Internal Medicine; Visit Provider Internal Medicine
DX: Z12.5 Encounter for screening for malignant neoplasm of prostate (principal); Z13.21 Encounter for screening for nutritional disorder; E11.65 Type 2 diabetes mellitus with hyperglycemia; I10 Essential (primary) hypertension; E78.5 Hyperlipidemia, unspecified
CPT/HCPCS: 36415; 80048; 80061; 82306; 83036; 84153; 84450; 84460; 85025

== ENCOUNTER 2025-04-27 10:36 | Outpatient (AMB) | payer MEDICARE, SELFPAY ==
[2025-04-27 10:47] VITALS: BP 110/60; PULSE 80; TEMP 36.6; O2SAT 99; BMI 24.5
--- NOTE | 2025-04-27 10:47 | MHC.PC.OV ---
Vital Signs 04/27/25 10:47 Height 6 ft Weight 181 lb BMI 24.5 BP 110/60 Blood Pressure Location Lt brachial Position Sitting Pulse 80 Pulse Source Pulse Oximeter Temp 97.9 F Temp Source Oral Pulse Oximetry (%) 99 Intake Visit Reasons: Annual PE/overdue Allergies No Known Allergies Allergy (Verified 04/27/25 11:29) Medication List - Last Reconciled 04/27/25 by Jesi Rao MD antiarthritic combination no.2 (glucosamine-chondroitin) mg PO atorvastatin 40 mg PO DAILY calcium carbonate-vitamin D3 600 mg-5 mcg (200 unit) (Calcium 600 + D(3)) caps PO cholecalciferol (vitamin D3) 125 mcg PO .every other day coenzyme [id number] E 100-100 mg-unit caps PO Jardiance (empagliflozin) 10 mg PO QAM NS lancets (Acti-Simon Lancets) Check blood sugar once daily before meal lisinopril 10 mg PO DAILY metformin 1,000 mg PO BID multivitamin 1 tab PO DAILY omega-3 acid ethyl esters 1 cap PO DAILY OneTouch Ultra Test (blood sugar diagnostic) Test blood sugar once a day NS pioglitazone 30 mg PO DAILY Tobacco use date assessed: 11/11/24 Fall risk assessment: No Falls in past year Last assessed Fall Risk: 04/27/25 Dental Screening Dental Screen Date: 11/11/24 HPI Annual PE/overdue HPI Details 74 year-old male with history of diabetes mellitus, hypertension dyslipidemia, here today for his physical exam He was noted to be mildly anemic during a recent complete blood count done on April 24. Denies having any abdominal pain, no bleeding in stool or urine. Dietary recommendations were provided to increase iron intake through foods such as green leafy vegetables and iron-rich meats. He has Diabetes Mellitus with recent hemoglobin A1c of 7.3, which has fluctuated over time. Dietary habits, including high carbohydrate intake, physical inactivity were discussed as contributing factors. The patient has a history of pancreatitis, attributed to previous alcohol and beef consumption. He has since modified his diet to avoid these triggers. He had a colonoscopy in December, with no polyps seen. He is also scheduled for a skin cancer screening with Dr. Wells on May 05, 2025, for which he needs a referral. He was found to have early-stage cataracts, not yet requiring surgical intervention, and has been seen by his log driver fitted with new lenses recently. [facility] Medical History (Updated 04/27/25 @ 11:34 by Jesi Rao MD) Skin cancer screening Diabetes mellitus with hyperglycemia, without long-term current use of insulin History of kidney stones Type 2 diabetes mellitus without complication, with no history of insulin use Essential hypertension Dyslipidemia Surgical History H/O colonoscopy Family History Father Aneurysm Mother No problems noted. Social History Housing: Condominium Alcohol intake: never Patient Tobacco Use Status: Never used Tobacco e-Cigarette/Vaping Use: Never Used service: No Current occupational status: retired Cognitive needs: No Hearing needs: No Vision needs: Yes Questionnaire PHQ-9 Over the last 2 weeks, how often have you been bothered by any of the following problems? 1. Little interest or pleasure in doing things: not at all 2. Feeling down, depressed, or hopeless: not at all 3. Trouble falling or staying asleep, or sleeping too much: not at all 4. Feeling tired or having little energy: not at all 5. Poor appetite or overeating: not at all 6. Feeling bad about yourself - or that you are a failure or have let yourself or your family down: not at all 7. Trouble concentrating on things, such as reading the newspaper or watching television: not at all 8. Moving or speaking so slowly that other people could have noticed. Or the opposite - being so fidgety or restless that you have been moving around a lot more than usual: not at all 9. Thoughts that you would be better off or of hurting yourself in some way: not at all Total score: 0 Depression Screening Interpretation: Negative Depression Screening Done: Yes Source: Developed by Drs. Bryan Vieyra, Sandra Joy, Jorge Llamas and colleagues, with an educational calin from [employer]. Thrive Questionnaire Date Thrive assessed: 11/11/24 I am a: Patient What is your living situation today?: I have a steady place to live Within the past 12 months, did the food you bought not last and you didn't have the money to get more?: Never true Within the past 12 months, did you worry whether your food would run out before you got money to buy more?: Never true Do you have trouble paying for medicines?: No Do you have trouble getting transportation to medical appointments?: No Do you have trouble paying your heating and electricity bill?: No Do you have trouble taking care of your child, family member or friend?: No Do you have trouble with day-to-day activities such as bathing, preparing meals, shopping, managing finances, etc.?: No Are you currently unemployed and looking for a job?: No Are you interested in more education?: No Please select the resources that you would like help with: None Currently or been in a relationship where the following occur: No concerns reported THRIVE Score: 0 AUDIT C Alcohol Use Questionnaire (AUDIT-C) 1. How often do you have a drink containing alcohol?: Never 2. How many drinks containing alcohol do you have on a typical day when you are drinking?: 1 or 2 3. How often do you have six or more drinks on one occasion?: Never Total Score: 0 Score Reviewed/Action Taken: Yes SNEHA-7 AMB Questionnaire SNEHA-7 Date SNEHA - 7 assessed: 11/11/24 Feeling nervous, anxious, or on edge: 0 = Not at all Not being able to stop or control worryin = Not at all Worrying too much about different things: 0 = Not at all Trouble relaxin = Not at all Being so restless that it is hard to sit still: 0 = Not at all Becoming easily annoyed or irritable: 0 = Not at all Feeling afraid as if something awful might happen: 0 = Not at all Total SNEHA-7 score (0-4 normal; 5-9 mild; 10-14 moderate; 15-21 severe): 0 Source: Developed by Drs. Bryan Vieyra, Sandra Joy, Jorge Llamas and colleagues, with an educational calin from [employer]. Review of Systems Const Denies body aches, Denies fatigue, Denies fever(s), Denies headache(s) and Denies weakness Eyes Details: sees Dr Hulseberg ENT Reports Normal hearing present and Denies headache(s) Card Denies chest pain, Denies lightheadedness, Denies palpitations and Denies dyspnea Resp Denies chest congestion, Denies cough and Denies dyspnea GI Denies abdominal pain, Denies change in bowel habits and Denies heartburn Denies dysuria, Denies urinary frequency and Denies urinary urgency Musc Denies back pain, Denies myalgias, Denies arthralgias, Denies muscle weakness and Denies stiffness Skin/Breast Details: Currently gets diabetes foot exam with Dr. Cast Denies lesions and Denies rash Neuro Reports Normal hearing present, Denies headache(s), Denies Sensory deficit (Neuro) and Denies weakness Psych Reports no additional complaints Endo Denies fatigue, Denies polydipsia, Denies polyuria and Denies palpitations Johann/Lymph Reports no additional complaints Aller/Immun Reports no additional complaints Physical exam (Primary Care) Vital Signs: Last Vital Signs Temp 97.9 F 04/27/25 10:47 Pulse 80 04/27/25 10:47 BP 110/60 04/27/25 10:47 Pulse Ox 99 04/27/25 10:47 BMI result Body Mass Index 24.5 Tobacco/Smoking Status: Tobacco use Status Tobacco use date assessed 11/11/24 04/27/25 10:47 Patient Tobacco Use Status Never used Tobacco 04/27/25 10:47 e-Cigarette/Vaping Use Never Used 04/27/25 10:47 PHQ-9: PHQ-9 Score PHQ-9: Total score 0 04/28/25 17:44 Depression Screening Interpretation: Negative Thrive Assessment: Date of Thrive Assessment Date Thrive assessed 11/11/24 04/27/25 10:47 Currently or been in a relationship where the following occur: No concerns reported Const General: no acute distress and alert Orientation/consciousness: patient oriented x3 HENMT Head: Yes normocephalic Ears: hearing grossly normal bilaterally and external ears normal General nose exam: Normal external nose present Face and sinus: Yes face symmetric Mouth: Normal oral and palatal mucosa present, oropharynx normal and moist mucous membranes Eyes General: appearance normal, both eyes and all related structures Neck Neck: Yes full ROM and Yes no lymphadenopathy Thyroid: Thyroid normal Chest Chest palpation & inspection: normal inspection of the chest Resp Effort & Inspection: normal respiratory effort and able to speak in complete sentences Auscultation: clear to auscultation bilaterally Cardio Jugular venous distension: no JVD Rate: regular rate Rhythm: regular rhythm Heart sounds: S1 normal heart sound present and S2 normal heart sound present GI Inspection: Yes normal to inspection Palpation (GI): Soft to palpation Auscultation: normal bowel sounds Male General Exam: Yes normal external exam Back/Spine/Pelvis Back: No back tenderness Skin Other: sees Dr Wells yearly Neuro General: patient oriented x3, gait normal, moves all extremities, no focal motor deficits, CN's II-XI intact bilaterally and normal sensation to monofilament Cranial nerves: Yes Normal hearing present Cognition (Neuro): normal cognition Gait exam (Neuro): Normal gait present Motor exam (neuro): 5/5 motor strength present throughout Sensory Exam: No Sensory deficit (Neuro) Extrem General: Yes normal to inspection, Yes full ROM, Yes no pedal edema and Yes normal gait Psych Appearance: grossly normal and well kempt Mental Status: mental status grossly normal Speech and movement: Normal speech and movement present Results Reviewed Results Reviewed: Name: Ken Justice Age/Sex: 74/M : 1950 Unit#: [id number] Attend Dr: Jesi Rao MD Re04/24/25 Status: DEP REF Location: [facility] Disch: SPEC : [id number] DANNY: 04/24/25 STATUS: COMP REQ : [id number] RECD: 04/24/25-[address]: Jesi Rao MD COMP: 04/24/25 ENTERED: 04/24/[address] [facility] [address]: ORDERED: CBC Auto Diff Test Result Flag Reference WBC 5.1 4.8-10.8 X10*3/uL RBC 4.44 L 4.60-5.80 X10*6/uL HGB 13.6 L 14.0-18.0 g/dl HCT 40.9 L 42.0-52.0 % MCV 92.1 80.0-98.0 fL MCH 30.6 27.0-33.0 pg MCHC 33.3 31.0-36.0 g/dl RDW 13.8 11.0-16.0 % PLT 223 160-400 X10*3/uL MPV 9.1 L 9.4-12.4 fL Neut Pct Auto 68.4 45-73 % ImGran Pct Auto 0.4 0.0-0.4 % Lymp Pct Auto 17.9 L 20-40 % Butte Pct Auto 9.3 2-11 % Eos Pct Auto 2.8 0-4 % Baso Pct Auto 1.2 0-2 % NRBC Pct Auto 0.0 0.0-0.2 /100WBC ANC Neut Abs # 3.5 2.0-8.3 x10*3/uL ImGran Abs Auto 0.02 0.00-0.03 X10*3/uL Lymph Abs Auto 0.9 L 1.2-4.9 X10*3/uL [place]te Abs Auto 0.5 0.1-1.2 X10*3/uL Eos Abs Auto 0.1 0.0-0.4 X10*3/uL Baso Abs Auto 0.1 0.0-0.2 X10*3/uL NRBC Abs Auto 0.000 0.0-0.012 X10*3/uL Name: Ken Justice Age/Sex: 74/M : 1950 Unit#: [id number] Attend Dr: Jesi Rao MD Re04/24/25 Status: DEP REF Location: [facility] Disch: SPEC : [id number] DANNY: 04/24/25 STATUS: COMP REQ : [id number] RECD: 04/24/25-[address]: Jesi Rao MD COMP: 04/24/254 ENTERED: 04/24/[address] [facility] [address]: ORDERED: Met Prof Fast, AST, ALT, Lipid Panel, Vitamin D 25-OH Test Result Flag Reference Sodium 140 135-145 mmol/L Potassium 4.5 3.3-5.1 mmol/L CL 107 96-108 mmol/L CO2 26 22-29 mmol/L Gap 12 12-20 BUN 20 H 9-16 mg/dL Creat 0.78 0.5-1.4 mg/dL eGFR > 60 Chronic Kidney Disease: Estimated GFR < 60 mL/min/1.73m2 Severe Kidney Disease: Estimated GFR < 15 mL/min/1.73m2 FBS 133 H 60-99 mg/dL A fasting glucose of 126 mg/dl or greater on more than one occasion is considered diagnostic of diabetes. CA 9.8 8.4-10.2 mg/dL AST (GOT) 26 5-37 U/L ALT (GPT) 25 0-40 U/L Triglyceride 77 <150 mg/dL Desirable Triglyceride: less than 150 mg/dL Borderline High Triglyceride 150-199 mg/dL High Triglyceride: 200-499 mg/dL Very High Triglyceride: greater than or equal to 5OO mg/dL Cholesterol 112 <200 mg/dL Desirable Cholesterol: less than 200 mg/dL Borderline High Cholesterol: 200-239 mg/dL High Cholesterol: greater than 239 mg/dL LDL Calculated 52 <100 mg/dL Desirable LDL: less than 100 mg/dL Near Optimal/Above Optimal LDL: 110-129 mg/dL Borderline High LDL: 130-159 mg/dL High LDL: 160-189 mg/dL Very High LDL: greater than or equal to 190 mg/dL HDL 45 >40 mg/dL Desirable HDL: greater than 40 mg/dL Note: This HDL assay may give artificially low results in patients with liver disease. Vitamin D 25-OH 83.3 >30 ng/mL Health Based Reference Values* < 20 ng/mL Deficient 20-30 ng/mL Insufficient > 30 ng/mL Sufficient Laboratory Tests 11/09/24 04/24/25 08:55 08:27 Estimat Average Glucose 163 Hemoglobin A1c % 7.3 H Microalb/Creat Ratio 6.8 Coding Level of Care Code Est Pt Prev Care >65y(37080) Diagnoses Annual visit for general adult medical examination with abnormal findings Z00. Skin cancer screening Z12.83 Essential hypertension I10 Dyslipidemia E78.5 Type 2 diabetes mellitus without complication, with no history of insulin use E11.9 Assessment & Plan Assessment & Plan (1) Annual visit for general adult medical examination with abnormal findings: Code(s): Z00.01 - Encounter for general adult medical examination with abnormal findings Plan: Reviewed recent fasting lab results with patient. Continue with regular dental cleaning and checkup, as well as yearly diabetes retinopathy eye screening. Take adequate calcium in diet and vitamin-D 3 at 2000 IU per cap once a day, in addition to weight-bearing exercises to help maintain good muscle tone and weight control. Instructed to do self-testicular exam check for any mass. Gets yearly flu vaccine up-to-date with his pneumonia vaccine and shingles vaccine as well as Tdap. (2) Skin cancer screening: Code(s): Z12.83 - Encounter for screening for malignant neoplasm of skin Category: Medical Plan: Referral to see Dr. Wells on May 05, 2025 ordered (3) Essential hypertension: Code(s): I10 - Essential (primary) hypertension Category: Medical Plan: Blood pressure at goal of less than 130/80. Continue with lisinopril 10 mg daily. Reinforced importance of following a low sodium diet, getting regular exercise, and lowering stress levels. (4) Dyslipidemia: Code(s): E78.5 - Hyperlipidemia, unspecified Category: Medical Plan: Reviewed recent fasting lipid profile with patient with levels within normal limits . Continue atorvastatin 40 mg daily and [place] 3 fatty acid supplements 1 capsule daily , in addition to adherence to low-cholesterol diet and regular exercise, at least 30 minutes 3 to 4 times a week. Advised patient to make healthy food choices, eat more fruits, vegetables, whole grains, wild caught fish and low-fat dairy. Limit amount of meat and fried or fatty food products, as well as processed foods and fast foods. Follow-up scheduled with repeat fasting lipid panel in 3 months. (5) Type 2 diabetes mellitus without complication, with no history of insulin use: Code(s): E11.9 - Type 2 diabetes mellitus without complications Category: Medical Plan: Diabetes mellitus control slipping, with hemoglobin A1c at 7.3% on latest labs done. Reinforced importance of adhering to healthy eating habits and getting regular exercise. Continue with Jardiance 10 mg daily in the morning, metformin a 1000 mg twice a day, and pioglitazone 30 mg daily. Will repeat hemoglobin A1c and electrolytes in 3 months Orders: Referrals Dermatology Referral Z12.83 - Encounter for screening for malignant neoplasm of skin
--- OUTSIDE RECORDS SUMMARY | 2025-04-27 11:54 | XMS_ITS | Patient Health Record ---
Author Organization [facility] [place] Address [address] [place] [address] Care Team Providers Care Hi Low Truck Driver Name Role Phone Jalen MCGUIRE, Jesi Klein Primary Care Provider Un available Phyllis Cast Unavailable [phone] Allergies No Known Allergies Results Component Value [...] Provider Speciality Internal M edicine Referred Organization [facility] Referred Provider Phyllis Cast Referred Address [address] [facility],[place],[address], Referred Provider Specialty Podiatry Referral Priority Routine Medications Medication SIG (Take, Route, Frequency, Duration) Notes Start Date End Date Status Multivitamin - as directed Orally Active T[place]erner 3-6-9 Fatty Acids - as directed Orally Active Vitamin D3 Active Calcium Carbonate-Vitamin D3 Unknown Glucosamine Chondroitin Adv Active Ammonium Lactate 12 % 1 application to a ffected area Externally to feet Twice a day; Duration: 30 days Active [id number] E Acti ve glyBURIDE 5 MG 1 tablet with breakf ast or the first main meal of the day Orally Once a day; Duration: 30 day(s) Active Ciclopirox Olamine 0.77 % 1 application to affected area Externally Twice a day to effected areas on feet; Duration: 30 days Active Lisinopril 10 MG 1 tablet Orally Once a day; Duration: 30 day(s) Active metFORMIN HCl 1000 MG 1 tablet with a me al Orally Once a day; Duration: 30 day(s) Active Pioglitazone HCl 30 MG 1 tablet Orally O nce a day; Duration: 30 day(s) Active Atorvastatin Calcium 40 MG 1 tablet Oral ly Once a day; Duration: 30 day(s) Active Immunizations Vaccine Route Administration [...] Problem Acquired hammer toe of right foot ([id number] ) Other hammer toe(s) (acquired), right foot (M20.41) Active confirmed Problem Acquired hammer toe of left foot ([id number] ) Other hammer toe(s) (acquired), left foot (M20.42) Active confirmed Problem Type II diabetes mellitus without complication (305802669) Diabetes (E11.9) Active confirmed Problem Type II diabetes mellitus without complication (695387654) Type 2 diabetes mellitus without complication, without long-term current use of insulin (E11.9) Active confirmed Vital Signs Blood pressure diastolic 72 mm Hg 09/01/2024 Height 6ft in 09/01/2024 Blood pressure systolic 117 mm Hg 09/01/2024 Weight 184 lbs 09/01/2024 BMI 24.95 kg/m2 09/01/2024 Encounters Encounter Location Date Provider Diagnosis [facility] [place] [address] [place] [address] 09/01/2024 Phyllsi Cast Type 2 diabetes mellitus without complication, [...] Details Provider Name:Phyllis bhakta, 08/31/2025 09:00:00 AM, [address] [facility], [place], [address], Insurance Providers Payer Name Payer Address Payer Phone Subscriber Number Group Number Insured Name Patient Relationship to Insured Coverage Start Date Coverage End Date [facility] 65 Medicare Preferred [address] [place] [address] [phone] [id number] Ken Justice Self - patient is the insured Medical (General) History Medical History History ICD Code Hypertension Kidney stones Dyslipidemia Arthritis Cholesterol type II diabetes Measles Chicken pox Surgical History Surgery Date(Month/Year)
--- OUTSIDE RECORDS SUMMARY | 2025-04-27 11:54 | XMS_ITS | Clinical Summary ---
Author Organization [facility] [address] [facility] Address [address] [place] [address] Phone Care Team Providers Care University Librarian Name Role Phone Jesi Rao MD Primary [...] Date Diabetes mellitus type 2, un complicated ([facility] V24, [facility] V28) 11/22/2015 Gallstones 11/22/2015 Overview (08/27/2024): Seen on CT 02/07 Hyperlipidemia 11/22/2015 Kidney stone 11/22/2015 Overview (08/27/2024): Right ureteral stone 02/07; laser stone ablation Surgical History Surgery Date Site/Laterality Comments COLONOSCOPY Medical History Medical History Date Comments Diabetes mellitus ([facility] V24, [facility] V28) Hyperlipidemia Hypertension History of kidney stones Social History Tobacco Use Types Packs/Day Years Used Date Smoking Tobacco: Never Smokeless Tobacco: Never Tobacco Cessation:Counseling Given: Not Answered Alcohol Use Standard Drinks/Week Comments Never 0 (1 standard drink = 0.6 oz pur e alcohol) Interpersonal Safety Answer Date Record ed Physical Abuse Unrecognized value 01/13/2025 Verbal Abuse Unrecognized value 01/13/2025 Sex and Gender Information Value Date [...] Maintenance Results * COLONOSCOPY Anesthesia - MAC; [facility] ENDOSCOPY (01/13/2025 9:47 AM EDT) Anatomical Region Laterality Modality Endoscopy 01/13/2025 9:23 AM EDT Impressions 01/13/2025 9:49 AM EDT - The entire examined colon is normal on direct and retroflexion views. - No specimens collected. Recommendation: - Repeat colonoscopy in 10 years for screening purposes. Narrative 01/13/2025 9:49 AM EDT [facility] Patient Name: Ken Justice Procedure Date: [...] malignant neoplasm of colon CPT copyright 2020 [employer]. All rights reserved. The codes documented in this report are preliminary and upon him coder review may be revised to meet current compliance requirements. Damian Arce MD 01/13/2025 9:49:04 AM This report has been signed electronically.Damian Arce MD Number of Addenda: 0 Note Initiated On: 01/13/2025 9:23 AM Scope In: Scope Out: Endoscopy Department at [facility] - [address] [place] [id number] Procedure Note Damian Arce MD - 01/13/2025 [facility] Patient Name: Ken Justice Procedure Date: [...] for malignantneoplasm of colon CPT copyright 2020 [employer]. All rights reserved. The codes documented in this report are preliminary and upon him coder reviewmay be revised to meet current compliance requirements. Damian Arce MD 01/13/2025 9:49:04 AM This report has been signed electronically.Damian Arce MD Number of Addenda: 0 Note Initiated On: 01/13/2025 9:23 AM Scope In: Scope Out: Endoscopy Department at [facility] - [address] [place] [id number] IMPRESSION: - The entire examined colon is normal on direct and retroflexion views. - No specimens collected. Recommendation: - Repeat colonoscopy in 10 years for screening purposes. Damian Arce MD GI~PROCEDURE ORDERABLES Fin al Result from Last 3 Months or Most Recently Relevant to Health Maintenance Insurance [employer] [place] MEDICARE ADVANTAGE Care Teams University Librarian Relationship Specialty Start Date End Date Jesi Rao MD [address] [place] [address] PCP - General Internal Medicine 08/28/24
--- OUTSIDE RECORDS SUMMARY | 2025-04-27 11:54 | XMS_ITS | Patient Health Record ---
Author Organization [facility] Address [address] [place] [address] Care Team Providers Care Manufacturing Engineering Intern Name Role Phone Isabell MCGUIRE, Adrian Primary Care Provider Unavailab Bryan Diana Unavailable [phone] Reason For Referral No Information Medications Medication SIG (Take, Route, Fr equency, Duration) Notes Start Date End Date Status metFORMIN HCl 07/29/2024 07/29/2024 Acti ve Multivitamins 07/29/2024 07/29/2024 Acti ve Calcium + D 07/29/2024 07/29/2024 Active Atorvastatin Calcium 07/29/2024 07/29/99 Active Actos 07/29/2024 07/29/2024 Active Glucosamine 07/29/2024 07/29/2024 Active Vitamin C 07/29/2024 07/29/2024 Active [place]-3 EPA Fish Oil 07/29/2024 07/29/99 Active Problems Problem Type SNOMED Code ICD Code Onset Dates Problem Status W/U Status Risk Notes Problem Colon cancer screening (203626943) Colon cancer screening (V76.51) Active confirmed Plan Of Treatment No Information Insurance Providers Payer Name Payer Address Payer Phone Subscriber Number Group Number Insured Name Patient Relationship to Insured Coverage Start Date Coverage End Date [facility] [address] [place] [phone] [id number] SHAHRIAR VILLASENOR Self - patient is the insured Medical (General) History Medical History History ICD Code colonoscopy 01-07-2004 was negative pancreatitis in 2002-unclear etiology-no problems since hyperlipdemia NIDDM Denies UT,DM,CVA,Lung disease,renal dise ase
== END 2025-04-27 15:01 | disposition home or self-care (01) ==
LOC: HO.HMCC 10:37
PROVIDERS: PCP Internal Medicine; Visit Provider Internal Medicine
DX: Z00.01 Encounter for general adult medical examination with abnormal findings (principal); E11.69 Type 2 diabetes mellitus with other specified complication; Z12.83 Encounter for screening for malignant neoplasm of skin; I10 Essential (primary) hypertension; E78.5 Hyperlipidemia, unspecified

== ENCOUNTER → 2025-04-27 10:36 | Outpatient (BNVA) | payer MEDICARE, SELFPAY | PROVIDERS: PCP Internal Medicine; Visit Provider Internal Medicine | DX: Z00.01 Encounter for general adult medical examination with abnormal findings (principal); E11.9 Type 2 diabetes mellitus without complications; I10 Essential (primary) hypertension; E78.5 Hyperlipidemia, unspecified | CPT/HCPCS: 96127; 99397 ==

== ENCOUNTER 2025-05-08 09:06 | Outpatient (REF) | payer MEDICARE, SELFPAY ==
[2025-05-08 12:44] LABS: Resp Syncy Virus RNA Qual PCR NEGATIVE (Negative); SARS COV2 PCR INHOUSE NEGATIVE (Negative)
== END 2025-05-08 09:07 | disposition home or self-care (01) ==
LOC: HO.LNP 09:06
PROVIDERS: Family Medicine; Visit Provider Internal Medicine
DX: R09.89 Other specified symptoms and signs involving the circulatory and respiratory systems (principal); R05.9 Cough, unspecified; B34.9 Viral infection, unspecified
CPT/HCPCS: 87637; 99212

== ENCOUNTER 2025-05-08 09:06 | Outpatient (AMB) | payer MEDICARE, SELFPAY ==
--- OUTSIDE RECORDS SUMMARY | 2025-05-08 09:09 | XMS_ITS | Patient Health Record ---
Author Organization [facility] Address [address] [place] [address] Care Team Providers Care Pharmaceutical Analyst Name Role Phone Isabell MCGUIRE, Adrian Primary Care Provider Unavailab Bryan Diana Unavailable [phone] Reason For Referral No Information Medications Medication SIG (Take, Route, Fr equency, Duration) Notes Start Date End Date Status metFORMIN HCl 07/29/2024 07/29/2024 Acti ve Multivitamins 07/29/2024 07/29/2024 Acti ve Calcium + D 07/29/2024 07/29/2024 Active Atorvastatin Calcium 07/29/2024 07/29/99 Active Actos 07/29/2024 07/29/2024 Active Glucosamine 07/29/2024 07/29/2024 Active Vitamin C 07/29/2024 07/29/2024 Active [place]-3 EPA Fish Oil 07/29/2024 07/29/99 Active Problems Problem Type SNOMED Code ICD Code Onset Dates Problem Status W/U Status Risk Notes Problem Colon cancer screening (764706245) Colon cancer screening (V76.51) Active confirmed Plan Of Treatment No Information Insurance Providers Payer Name Payer Address Payer Phone Subscriber Number Group Number Insured Name Patient Relationship to Insured Coverage Start Date Coverage End Date [facility] [address] [place] [phone] [id number] SHAHRIAR VILLASENOR Self - patient is the insured Medical (General) History Medical History History ICD Code colonoscopy 01-07-2004 was negative pancreatitis in 2002-unclear etiology-no problems since hyperlipdemia NIDDM Denies IA,DM,CVA,Lung disease,renal dise ase
--- OUTSIDE RECORDS SUMMARY | 2025-05-08 09:09 | XMS_ITS | Clinical Summary ---
Author Organization [facility] [address] [facility] Address [address] [place] [address] Phone Care Team Providers Care Wire Stripping Machine Operator Name Role Phone Jesi Rao MD Primary [...] Date Diabetes mellitus type 2, un complicated ([facility] V24, [facility] V28) 11/22/2015 Gallstones 11/22/2015 Overview (08/27/2024): Seen on CT 02/07 Hyperlipidemia 11/22/2015 Kidney stone 11/22/2015 Overview (08/27/2024): Right ureteral stone 02/07; laser stone ablation Surgical History Surgery Date Site/Laterality Comments COLONOSCOPY Medical History Medical History Date Comments Diabetes mellitus ([facility] V24, [facility] V28) Hyperlipidemia Hypertension History of kidney stones [...] exists Influenza Vaccine (#1) 2025 , 05/13/2023, 04/29/2023, Additional history exists Falls Risk Assessment 01/13/2026 [...] Maintenance Results * COLONOSCOPY Anesthesia - MAC; [facility] ENDOSCOPY (01/13/2025 9:47 AM EDT) Anatomical Region Laterality Modality Endoscopy 01/13/2025 9:23 AM EDT Impressions 01/13/2025 9:49 AM EDT - The entire examined colon is normal on direct and retroflexion views. - No specimens collected. Recommendation: - Repeat colonoscopy in 10 years for screening purposes. Narrative 01/13/2025 9:49 AM EDT [facility] Patient Name: Ken Justice Procedure [...] malignant neoplasm of colon CPT copyright 2020 [employer]. All rights reserved. The codes documented in this report are preliminary and upon antenna specialist review may be revised to meet current compliance requirements. Damian Arce MD 01/13/2025 9:49:04 AM This report has been signed electronically.Damian Arce MD Number of Addenda: 0 Note Initiated On: 01/13/2025 9:23 AM Scope In: Scope Out: Endoscopy Department at [facility] - [address] [place] [phone] Procedure Note Damian Arce MD - 01/13/2025 [facility] Patient Name: Ken Justice Procedure [...] for malignantneoplasm of colon CPT copyright 2020 [employer]. All rights reserved. The codes documented in this report are preliminary and upon antenna specialist reviewmay be revised to meet current compliance requirements. Damian Arce MD 01/13/2025 9:49:04 AM This report has been signed electronically.Damian Arce MD Number of Addenda: 0 Note Initiated On: 01/13/2025 9:23 AM Scope In: Scope Out: Endoscopy Department at [facility] - [address] [place] [phone] IMPRESSION: - The entire examined colon is normal on direct and retroflexion views. - No specimens collected. Recommendation: - Repeat colonoscopy in 10 years for screening purposes. Damian Arce MD GI~PROCEDURE ORDERABLES Fin al Result from Last 3 Months or Most Recently Relevant to Health Maintenance Insurance [employer] - [place] MEDICARE ADVANTAGE Care Teams Wire Stripping Machine Operator Relationship Specialty Start Date End Date Jesi Rao MD [address] [place] [address] PCP - General Internal Medicine 08/28/24
--- OUTSIDE RECORDS SUMMARY | 2025-05-08 09:09 | XMS_ITS | Patient Health Record ---
Author Organization [facility] [place] Address [address] [place] [address] Care Team Providers Care Recreation Therapist Name Role Phone Jalen MCGUIRE, Jesi Klein Primary Care Provider Un available Phyllis Cast Unavailable [phone] Allergies No Known Allergies Results Component Value [...] Provider Speciality Internal M edicine Referred Organization [facility] [place] Referred Provider Phyllis Cast Referred Address [address] [facility],[place], [place],[address], Referred Provider Specialty Podiatry Referral Priority Routine Medications Medication SIG (Take, Route, Frequency, Duration) Notes Start Date End Date Status Multivitamin - as directed Orally Active Dupuyer 3-6-9 Fatty Acids - as directed Orally Active Vitamin D3 Active Calcium Carbonate-Vitamin D3 Unknown Glucosamine Chondroitin Adv Active Ammonium Lactate 12 % 1 application to a ffected area Externally to feet Twice a day; Duration: 30 days Active CmO24-Covqbch E Acti ve glyBURIDE 5 MG 1 [...] Problem Acquired hammer toe of right foot (1675625054221154 ) Other hammer toe(s) (acquired), right foot (M20.41) Active confirmed Problem Acquired hammer toe of left foot (6572433095697780 ) Other hammer toe(s) (acquired), left foot (M20.42) Active confirmed Problem Type II diabetes mellitus without complication (817825525) Diabetes (E11.9) Active confirmed Problem Type II diabetes mellitus without complication (455756474) Type 2 diabetes mellitus without complication, without long-term current use of insulin (E11.9) Active confirmed Vital Signs Blood pressure diastolic 72 mm Hg 09/01/2024 Height 6ft in 09/01/2024 Blood pressure systolic 117 mm Hg 09/01/2024 Weight 184 lbs 09/01/2024 BMI 24.95 kg/m2 09/01/2024 Encounters Encounter Location Date Provider Diagnosis [facility] [address] [place] [address] 09/01/2024 Phyllis Cast Type 2 diabetes mellitus [...] Provider Name:Phyllis bhakta, 08/31/2025 09:00:00 AM, [address] [facility], [place], [address], Insurance Providers Payer Name Payer Address Payer Phone Subscriber Number Group Number Insured Name Patient Relationship to Insured Coverage Start Date Coverage End Date [facility] 65 Medicare Preferred [address] [place] [address] [id number] Ken Justice Self - patient is the insured Medical (General) History Medical History History ICD Code Hypertension Kidney stones Dyslipidemia Arthritis Cholesterol type II diabetes Measles Chicken pox Surgical History Surgery Date(Month/Year)
[2025-05-08 09:12] VITALS: BP 100/52; PULSE 74; RESP 16; TEMP 36.6; O2SAT 98; BMI 24.0
--- NOTE | 2025-05-08 09:12 | MHC.OFFWIV ---
Intake Vital Signs 05/08/25 09:12 Height 6 ft Weight 177 lb BMI 24.0 BP 100/52 L Blood Pressure Location Lt brachial Position Sitting Respiration 16 Pulse 74 Pulse Source Pulse Oximeter Temp 97.8 F Temp Source Oral Pulse Oximetry (%) 98 Oxygen Delivery Method Room Air Intake Visit Reasons: EP, cough 3x day w/ chest congestion Intake Note: Pt is here today c/o cough and chest congestion x3days Patient Tobacco Use Status: Never used Tobacco Allergies No Known Allergies Allergy (Verified 05/08/25 09:15) Medication List - Last Reconciled 05/08/25 by Abilio Dominguez MD antiarthritic combination no.2 (glucosamine-chondroitin) mg PO atorvastatin 40 mg PO DAILY calcium carbonate-vitamin D3 600 mg-5 mcg (200 unit) (Calcium 600 + D(3)) caps PO cholecalciferol (vitamin D3) 125 mcg PO .every other day coenzyme M36-zmhzncw E 100-100 mg-unit caps PO Jardiance (empagliflozin) 10 mg PO QAM NS lancets (Acti-Simon Lancets) Check blood sugar once daily before meal lisinopril 10 mg PO DAILY metformin 1,000 mg PO BID multivitamin 1 tab PO DAILY omega-3 acid ethyl esters 1 cap PO DAILY OneTouch Ultra Test (blood sugar diagnostic) Test blood sugar once a day NS pioglitazone 30 mg PO DAILY prednisone 40 mg (2 x 20 mg) PO DAILY 3 days HPI EP, cough 3x day w/ chest congestion HPI Details Worsening cough and congestion for the past 3 days Has felt mildly febrile Some nasal congestion and discharge No sore throat Testing in household for COVID and flu was negative ON LICENSE OF [facility] Medical History (Updated 05/08/25 @ 09:43 by Abilio Dominguez MD) Skin cancer screening Diabetes mellitus with hyperglycemia, without long-term current use of insulin History of kidney stones Type 2 diabetes mellitus without complication, with no history of insulin use Essential hypertension Dyslipidemia Surgical History H/O colonoscopy Family History Father Aneurysm Mother No problems noted. Social History Housing: Condominium Alcohol intake: never Patient Tobacco Use Status: Never used Tobacco e-Cigarette/Vaping Use: Never Used service: No Current occupational status: retired Cognitive needs: No Hearing needs: No Vision needs: Yes Review of Systems Const Details: See HPI Physical Exam Vital Signs: Last Vital Signs Temp 97.8 F 05/08/25 09:12 Pulse 74 05/08/25 09:12 Resp 16 05/08/25 09:12 BP 100/52 L 05/08/25 09:12 Pulse Ox 98 05/08/25 09:12 Oxygen Delivery Method Room Air 05/08/25 09:12 BMI result Body Mass Index 24.0 Const General: no acute distress and well developed Nutritional Appearance: well nourished Orientation/consciousness: patient oriented x3 HEENT Other: Clear Nasal discharge Head: Yes normocephalic and Yes atraumatic Eyes General: appearance normal, both eyes and all related structures Pupils: Equal, round and reactive pupils present EOM: EOMs intact bilaterally Resp Other: Coarse breath sounds and airway secretions sounds No diminished breath sounds Effort & Inspection: normal respiratory effort Cardio Rate: regular rate Rhythm: regular rhythm Heart sounds: S1 normal heart sound present, S2 normal heart sound present, no gallops, no murmurs and no rubs Neuro General: patient oriented x3 and gait normal Cranial nerves: Yes Equal, round and reactive pupils present Psych Affect: normal affect Assessment & Plan Assessment & Plan (1) Bronchitis: Code(s): J40 - Bronchitis, not specified as acute or chronic Plan: Coarse breath sounds with productive cough throughout lung renee. Likely bronchitis but may be secondary to a viral illness Will send script for a Z-Harish & short course of prednisone Hydrate well and get plenty of rest Can use ibuprofen or Tylenol for aches/pain Can not rule out viral illness Sending nasal swab to lab to rule out COVID/flu/RSV Orders: Orders SARS-CoV2/FLU/RSV Today B34.9 - Viral infection, unspecified Medications: New prednisone 40 mg (2 x 20 mg) PO DAILY 6 tabs 0RF 3 days Coding Level of Care Code Est Pt Level 3 (21055) Diagnoses Bronchitis J40
== END 2025-05-08 09:51 | disposition home or self-care (01) ==
PROVIDERS: PCP Internal Medicine; Visit Provider Family Medicine
DX: J40 Bronchitis, not specified as acute or chronic (principal)